=== PATIENT | female | born 1940 | race Caucasian/White ===

== ENCOUNTER 2022-05-20 10:21 | Inpatient (IN) | payer MEDICARE, OTHER, SELFPAY ==
[2022-05-20] VITALS (30 sets, daily range): BP systolic 115–146; BP diastolic 55–84; PULSE 67–92; RESP 15–25; TEMP 36.3–37.2; O2SAT 96–100; BMI 22.5
--- NOTE | ~2022-05-20 | US_ITS ---
EXAMINATION: US thyroid DATE: 05/22/2022 17:14 INDICATION: Hyperthyroidism. TECHNIQUE: Multiple ultrasound images of the thyroid were obtained. COMPARISON: Chest CT 05/20/2022 FINDINGS: The right thyroid lobe measures 1.6 x 0.9 x 0.6 cm. The left thyroid lobe is absent. The thyroid ist hmus measures 3 mm in thickness. There is normal echotexture and echogenicity throughout the thyroid gland. No discrete nodules identified. Normal vascular flow is present. IMPRESSION: 1. Small thyroid. Reviewed, dictated and finalized at location A. ITAL SUPERVISOR IMPRESSION: 1. Small thyroid.
--- NOTE | ~2022-05-20 | XR_ITS ---
EXAMINATION: XR chest 2V DATE: 05/20/2022 11:13 INDICATION: Cough and shortness of breath TECHNIQUE: AP and lateral views of the chest are obtained. COMPARISON: 08/04/2014 FINDINGS: The lungs are free of acute opacities. There is scarring of the lung apices. No pleural eff usion or pneumothorax. The cardiomediastinal silhouette is normal. There is moderate thoracic spondyl osis. IMPRESSION: 1. No acute cardiopulmonary abnormality. Reviewed, dictated and finalized at location B. COVERER HAND
--- NOTE | ~2022-05-20 | CT_ITS ---
EXAMINATION: CTA chest PE protocol DATE: 05/20/2022 13:28 INDICATION: Shortness of breath TECHNIQUE: Computed tomography angiography (CTA) of the chest was performed with 100 mL Omnipaque-350 intravenous contrast timed to evaluate the pulmonary arteries. Coronal maximum intensity projection 3D-reconstructions were created by the technologist. The dose-length product (DLP) was 292.30 mGy-cm. Automated exposure control and iterative reconstruction technique were employed. COMPARISON: 08/04/2014 FINDINGS: The pulmonary arteries are well-opacified. No pulmonary embolism is identified. There is sc arring in the lung apices. There is a 6 mm nodule of the lingula without significant change since the comparison examination. No pleural effusion or pneumothorax. No pathologically enlarged thoracic lym ph nodes are identified. The heart size is normal. There is a stable 3.5 cm hypoattenuating lesion of the right hepatic lobe. There is a 9 mm soft tissue density lesion at the posterior aspect of the le ft kidney. There is moderate thoracic spondylosis. IMPRESSION: 1. No pulmonary embolism or acute cardiopulmonary abnormality. 2. Indeterminate 9 mm left kidney lesion. Follow-up by nonemergent CT or MRI without and with contras t is recommended. Reviewed, dictated and finalized at location B. FOLD BUILDER IMPRESSION: 1. No pulmonary embolism or acute cardiopulmonary abnormality. 2. Indeterminate 9 mm left kidney lesion. Follow-up by nonemergent CT or MRI wi thout and with contrast is recommended.
--- NOTE | 2022-05-20 10:51 | ECG_ITS ---
Measurements Intervals [place] Rate: 74 P: 68 VA: 171 QRS: -11 QRSD: 78 T: 43 QT: 352 QTc: 391 Interpretive Statements SINUS RHYTHM POSSIBLE LEFT ATRIAL ENLARGEMENT RSR' IN V1 OR V2, PROBABLY NORMAL VARIANT DELAYED PRECORDIAL R/S TRANSITION BASELINE ARTIFACT- I, II, III, AVR, AVL, AVF, V2-V5 BORDERLINE ECG NO PREVIOUS ECG AVAILABLE FOR COMPARISON Electronically Signed On 05-20-2022 12:08:02 FORM SETTER HELPER by Uli Mesa D.O.
--- NOTE | 2022-05-20 10:57 | ED.SOB ---
HPI - SOB/Dyspnea General Chief Complaint: Shortness of Breath/Dyspnea Stated Complaint: SOB Time Seen by Provider: 05/20/22 10:36 History of Present Illness HPI Narrative: 82-year-old female with history of CAD here for evaluation of dyspnea over the past day. Patient states that the dyspnea is exertional in nature, relieved when she is at rest. First noted this morning upon waking up. Denies history of previous similar sensation. No chest pain, fevers or chills, cough, leg swelling. No history of blood clots. Her 4 months ago and does note increased stressors at home. States that her shortness of breath has improved without intervention since being in the ED. Related Data Home Medications Medication Instructions Recorded Confirmed aspirin 325 mg tablet 325 mg PO DAILY 12/02/19 12/31/21 cholecalciferol (vitamin D3) 25 25 mcg PO DAILY 12/02/19 12/31/21 mcg (1,000 unit) tablet Allergies Allergy/AdvReac Type Severity Reaction Status Date / Time amoxicillin Allergy Mild RASH Verified 05/20/22 11:26 Penicillins Allergy Mild hives Verified 05/20/22 11:26 Review of Systems Review of Systems: Gen.: Denies fevers or chills Eyes: Denies eye pain or visual change ENT: Denies congestion Respiratory: Reports shortness of breath CV: Denies chest pain or palpitations GI: Denies abdominal pain nausea, emesis or diarrhea denies burning, urgency, frequency or hematuria Musculoskeletal: Denies back pain or muscle pain Neuro: Denies numbness, tingling, weakness or focal weakness Skin: Denies rash Except as documented, all other systems reviewed and negative PMFSH Family History Family History Sibling Patient's sister is in good health Mother Family history of malignant neoplasm of breast in first degree relative Father Family history of coronary artery disease Social History Social History Smoking status: Current every day smoker Alcohol intake: never Exam Narrative: APPEARANCE: Well appearing, no pain in distress, well-nourished. Head: Normocephalic and atraumatic. EYES: PERRLA/EOMI, conjunctivae clear NOSE: No nasal drainage EARS: External ear normal in appearance THROAT: Oropharynx is clear. Mucous membranes are moist. NECK: Supple. No adenopathy, no masses. RESPIRATORY: Airway patent, respirations nonlabored. Clear to auscultation bilaterally, no rales, rhonchi, wheezing. CARDIOVASCULAR: Regular rate and rhythm without murmurs, rubs, or gallops. ABDOMINAL: Normoactive bowel sounds. Soft, nontender, nondistended. No rebound tenderness or guarding. MUSCULOSKELETAL: Extremities are warm and well-perfused. Moves all extremities well. No edema. NEURO: Normal speech. No focal neurologic deficits. SKIN: Skin is warm and dry. No rashes. PSYCHIATRIC: Normal affect/mood. Course Vital Signs Vital signs: Vital Signs Temperature 97.8 F 05/20/22 10:33 Pulse Rate 92 05/20/22 10:33 Respiratory Rate 18 05/20/22 10:33 Blood Pressure 119/55 L 05/20/22 10:33 Pulse Oximetry 98 05/20/22 10:33 Oxygen Delivery Room Air 05/20/22 10:33 Temperature 97.8 F 05/20/22 10:36 Pulse Rate 75 05/20/22 13:16 Respiratory Rate 19 05/20/22 13:16 Blood Pressure 126/55 L 05/20/22 13:16 Pulse Oximetry 99 05/20/22 13:16 Oxygen Delivery Room Air 05/20/22 10:36 MDM - SOB/Dyspnea MDM Narrative Medical decision making narrative: 82-year-old female here for evaluation of shortness of breath over the past several hours on exertion at home. Patient states that her shortness of breath has improved since being in the ED and her vital signs are normal. Heart lungs are clear to auscultation. Patient did have 2 episodes of nonsustained V. tach lasting 5-10 seconds while in the ED; and during these episodes she was quite short of breath. Her chest x-ray is normal, EKG and tr
--- NOTE | 2022-05-20 11:10 | PC.NURSE ---
pt to xray
[2022-05-20 11:41] LABS: Basophils Absolute Auto 0.1 K/mm3 (0.0-0.1); Basophils Percent Auto 0.7 % (0.2-1.2); Eosinophils Absolute Auto 0.2 K/mm3 (0-0.3); Hematocrit 41.4 % (37.0-47.0); Hemoglobin 13.3 g/dL (12.0-15.0); Immature Granulocyte Absolute 0.02 K/mm3 (0.00-0.031); Immature Granulocyte Percent A 0.3 % (0-0.5); Lymphocytes Absolute Auto 1.88 K/mm3 (0.9-3.2); Lymphocytes Percent Auto 25.7 % (18.3-44.2); Mean Corpuscular HGB Conc 32.1 g/dl (32-36); Mean Corpuscular Volume 87.2 fl (80-100); Mean Platelet Volume 11.8 fl (7.4-10.4); Monocytes Absolute Auto 0.7 K/mm3 (0.1-0.6); Monocytes Percent Auto 9.8 % (2.6-8.5); Neutrophils Absolute Auto 4.4 K/mm3 (1.3-6.7); Neutrophils Percent Auto 60.5 % (45.5-73.1); Platelet Count Result 204 k/mm3 (150-375); Red Blood Count 4.75 M/mm3 (4.2-5.4); Red Cell Distribution Width 13.2 % (11.5-14.5); White Blood Count 7.3 K/mm3 (4.5-10.0)
[2022-05-20 11:50] LABS: Alanine Aminotransferase 23 U/L (6-35); Albumin Level 3.7 g/dL (3.5-5.1); Alkaline Phosphatase 106 U/L (38-126); Anion Gap 4 mmol/L (8-16); Aspartate Amino Transferase 25 U/L (14-36); Blood Urea Nitrogen 19 mg/dL (7-17); Calcium 9.1 mg/dL (8.4-10.2); Carbon Dioxide 29 mmol/L (22-30); Chloride 108 mmol/L (98-107); Estimated CRCL calculation 42 ml/min; Estimated Glomerular Filt Rate > 60; Glucose 105 mg/dL (65-110); Potassium 4.1 mmol/L (3.4-5.0); Sodium 141 mmol/L (137-145)
[2022-05-20 12:01] LABS: NT Pro B Type Natriuretic Pept 213 pg/mL (19.9-100)
[2022-05-20 12:02] LABS: Troponin I < 0.012 ng/mL (0.000-0.034)
[2022-05-20 13:04] LABS: Influenza A QL RT-PCR Negative (Negative); Influenza B QL RT-PCR Negative (Negative); SARS-CoV-2 RNA PCR Negative
[2022-05-20 13:10] LABS: D Dimer 0.86 ug/mL (<0.48)
--- NOTE | 2022-05-20 13:51 | PC.NURSE ---
heart health food tray ordered
[2022-05-20] MEDS: IPRATROPIUM BR 0.02% INH SOLN 0.5 MG/2.5 ML VIAL INHALATION (14:21)
--- NOTE | 2022-05-20 15:00 | PM.IMHP ---
H&P: HPI History of Present Illness Date/Time: 05/20/22 15:00 Chief Complaint: Shortness of breath. Narrative: This is a very pleasant 82-year-old female smoker with coronary artery disease and history of stent, hypertension, dyslipidemia, and hypothyroidism who presented to the ED from home for evaluation of shortness of breath. Patient provides the following history; her daughter provides some additional information with the patients consent. Over the past several weeks she has had intermittent and brief episodes of shortness of breath which seem to occur randomly, both while sitting down and when up walking. She cannot pinpoint any specific pattern as to when it occurs. She goes on to say that she has a strange feeling just prior to his shortness of breath though she has difficulties describing that. She had another such episode this morning while walking into the family room and sat down to catch her breath. Her daughter Emilia is in town from [place], helping the patient go through her late 's things since his passing in January 2022. Emilia is an ER physician and she did not notice any significant physical findings (the patient was not pale or diaphoretic) and she reports that her pulse felt regular. Her vital signs were stable on arrival to the ED. She was placed on a monitor and she has had several episodes of nonsustained ventricular tachycardia lasting up to 10 seconds. She reports having the strange feeling and shortness of breath at the same time that this occurs. She has never had similar symptoms prior to the last few weeks. She has no known history of cardiac dysrhythmia. She has not had any recent change in medications and she has been taking her metoprolol as directed. She denies syncope and near-syncope but mentions that she had a fall a couple of weeks ago after losing her balance while bending over to pick something off of the floor. She has not had chest pain or discomfort, pleuritic pain, orthopnea, paroxysmal nocturnal dyspnea, or lower extremity edema. No significant caffeine or alcohol use. Of note she does report an increase in stress over the last several months following the of her . Appetite has not been great and she has lost approximately 30 lb. Review of Systems Review of Systems: Twelve systems were reviewed and are negative except for as per HPI. [facility] Past Medical History Medical History (Updated 05/20/22 @ 21:45 by Annamarie Hugo PA-C) Coronary artery disease Dyslipidemia Hypertension Hypothyroidism Vitamin D deficiency Surgical History Surgical History (Updated 05/20/22 @ 21:34 by Annamarie Hugo PA-C) History of appendectomy History of arthroscopic knee surgery History of heart artery stent Family History Family History Sibling Patient's sister is in good health Mother Family history of malignant neoplasm of breast in first degree relative Father Family history of coronary artery disease Social History Social History (Updated 05/20/22 @ 21:34 by Annamarie Hugo PA-C) Social History: Surrogate medical decision maker: Emilia Pedraza, daughter. Code status: Full code. She would not want to be on life support longer than 2.5 days. Smoking packs per day: 0.5 Smoking cigarettes per day: 10.0 Years smoked: 64 Smoking pack-years: 32.00 Smoking status: Current every day smoker Alcohol intake: never Lack of Transportation: No Lack of Food: Often True Current Housing: I Have Housing Concerned About Future Housing: No Difficulty Paying Gas/Electric Bills: No Difficulty Paying for Meds: No Currently Unemployed: No Education: Associate Degree Difficulty w/ Childcare or Family Care: No Additional living arrangements comments: as of January 2022. Lives alone in [place] with her dog. Spiritual care concerns: No Meds Home Medications and Allergies Home Medication
[2022-05-20 15:23] LABS: Partial Thromboplastin Time 34.9 SECONDS (22.3-36.8); Prothrombin Time 12.3 Seconds (11.1-14.7)
[2022-05-20 15:59] LABS: Magnesium 2.3 mg/dL (1.6-2.3)
[2022-05-20 16:30] LABS: Thyroid Stimulating Hormone < 0.015 uIU/mL (0.465-4.680)
--- NOTE | 2022-05-20 17:35 | ADMGEN ---
This patient, Kandi Lewis, was admitted to IMU Room 207-01 at 1710. Patient/family oriented to hospital policies and general routines including ID bracelet, bed and alarms, visiting hours, pain management, procedures, bathroom and other care routines, personal items, smoking policy, room service/diet, and visiting hours. Information on how to activate the Rapid Response Team has been discussed. Patient/Family are encouraged to report perceived risks to care and to ask questions if they do not understand what they are told or what they should do.
[2022-05-20] MEDS: LACTATED RINGERS 1,000 ML 100 ML IV CONT (22:17)
[2022-05-20] MEDS: hydrALAZINE HCL 50 MG TABLET 100 MG PO (22:17)
[2022-05-20] MEDS: EZETIMIBE 10 MG TABLET PO (22:17)
[2022-05-21] VITALS (17 sets, daily range): BP systolic 107–146; BP diastolic 50–65; PULSE 65–85; RESP 16–20; TEMP 36.3–37.1; O2SAT 94–97; BMI 22.5
[2022-05-21 07:28] LABS: Hemoglobin 11.7 g/dL (12.0-15.0); Mean Corpuscular HGB Conc 32.5 g/dl (32-36); Mean Corpuscular Hemoglobin 28.2 pg (26-34); Mean Corpuscular Volume 86.7 fl (80-100); Mean Platelet Volume 11.4 fl (7.4-10.4); Platelet Count Result 174 k/mm3 (150-375); Red Blood Count 4.15 M/mm3 (4.2-5.4); Red Cell Distribution Width 13.3 % (11.5-14.5); White Blood Count 6.6 K/mm3 (4.5-10.0)
[2022-05-21 07:47] LABS: Anion Gap 2 mmol/L (8-16); Blood Urea Nitrogen 12 mg/dL (7-17); Calcium 8.8 mg/dL (8.4-10.2); Carbon Dioxide 28 mmol/L (22-30); Chloride 107 mmol/L (98-107); Estimated CRCL calculation 46 ml/min; Estimated Glomerular Filt Rate > 60; Glucose 99 mg/dL (65-110); Magnesium 2.1 mg/dL (1.6-2.3); Potassium 3.8 mmol/L (3.4-5.0); Sodium 137 mmol/L (137-145)
[2022-05-21 07:53] LABS: Troponin I < 0.012 ng/mL (0.000-0.034)
[2022-05-21] MEDS: ASPIRIN 325 MG TABLET PO (08:39)
[2022-05-21] MEDS: METOPROLOL SUCCINATE EXT REL 25 MG TABCR BY MOUTH (08:40)
[2022-05-21] MEDS: hydrALAZINE HCL 50 MG TABLET 100 MG PO ×2 (08:40→17:59)
[2022-05-21] MEDS: CHOLECALCIFEROL 1,000 UNITS TABLET 1000 UNITS PO (08:40)
[2022-05-21] MEDS: ATORVASTATIN 40 MG TABLET 80 MG BY MOUTH (08:40)
[2022-05-21] MEDS: lisinopriL 20 MG TABLET 40 MG PO (08:40)
--- NOTE | 2022-05-21 08:45 | PM.IMPN ---
Progress Note: A&P Assessment and Plan (1) Non-sustained ventricular tachycardia: Code(s): I47.29 - Other ventricular tachycardia Status: Acute Assessment and Plan: Monitor telemetry, check electrolytes, appreciate cardiology consultation Etiology could be secondary to hyperthyroidism, possibly iatrogenic TSH undetectable, T4 elevated, T3 pending, hold levothyroxine Due to history of ischemic disease, cardiology is recommending stress testing, ECHO ordered and pending Would likely need ischemic eval versus EPS versus antiarrhythmic medication versus LifeVest prior to discharge? (2) Low serum thyroid stimulating hormone (TSH): Code(s): R79.89 - Other specified abnormal findings of blood chemistry Status: Acute Assessment and Plan: TSH was undetectable, free T3, free T4 2.4, hold levothyroxine (3) Coronary artery disease: Code(s): I25.10 - Atherosclerotic heart disease of nulato coronary artery without angina pectoris Status: Acute Assessment and Plan: Continue home aspirin, statin, quinapril, metoprolol (4) Hypertension: Code(s): I10 - Essential (primary) hypertension Status: Acute Assessment and Plan: Stable, continue home meds (5) Hypothyroidism: Code(s): E03.9 - Hypothyroidism, unspecified Status: Acute Assessment and Plan: Hold levothyroxine, see above (6) Dyslipidemia: Code(s): E78.5 - Hyperlipidemia, unspecified Status: Acute Assessment and Plan: Continue statin (7) Lesion of left nulato kidney: Code(s): N28.9 - Disorder of kidney and ureter, unspecified Status: Acute Assessment and Plan: 9 mm left kidney lesion, follow-up outpatient with further imaging and monitoring Plan DVT prophylaxis with SCDs GI prophylaxis not indicated Code status full code Of note, daughter is a physician and family is requesting transfer for electrophysiology evaluation at [facility]. Transfer can be arranged if stress test and echo are negative and further EP workup necessary. Subjective Date/time seen: 05/21/22 08:45 Interval history: No overnight events noted. No chest pain or shortness of breath. No nausea, vomiting or diarrhea. No fevers or chills. Patient reports intermittent episodes of shortness of breath, palpitations, sense of impending doom and chest pressure. A few of these episodes were captured in the ER with associated ventricular tachycardia noted on telemetry. Since then, patient has remained in sinus rhythm on the telemetry with no further episodes. Review of Systems Review of Systems: 12 point review of systems was assessed and was negative except as noted in the HPI Exam Narrative: General: No acute distress, alert and oriented per baseline HEENT: Atraumatic, normocephalic, mucous membranes moist CV: Regular rate and rhythm, S1, S2 Lungs: Clear to auscultation bilaterally, no rales or crackles noted, no wheezes, good air entry Abdomen: Soft, nontender, nondistended Extremities: Normal to inspection Skin: No rashes noted, no lesions or wounds seen Psych: Euthymic, normal affect Objective Data Vital Signs Vital Signs: Vital Signs - 24 hr 05/20/22 10:33 05/20/22 10:36 05/20/22 11:35 Temperature 97.8 F 97.8 F Pulse Rate 92 92 78 Respiratory Rate 18 16 Blood Pressure 119/55 L 119/55 L Pulse Oximetry 98 98 Oxygen Delivery Room Air Room Air 05/20/22 11:34 05/20/22 12:59 05/20/22 13:00 Temperature Pulse Rate 75 69 68 Respiratory Rate 18 20 17 Blood Pressure 127/60 Pulse Oximetry 98 98 97 Oxygen Delivery 05/20/22 13:01 05/20/22 13:15 05/20/22 13:16 Temperature Pulse Rate 70 73 75 Respiratory Rate 18 18 19 Blood Pressure 126/55 L 126/55 L Pulse Oximetry 99 98 99 Oxygen Delivery 05/20/22 14:22 05/20/22 14:30 05/20/22 13:17 Temperature Pulse Rate 84 77 71 Respirato
[2022-05-21] MEDS: PERFLUTREN LIPID MICROSPHERES 1.5 ML VIAL DILUTED TO 10 ML TOTAL VOLUME IV PUSH (09:53)
--- NOTE | 2022-05-21 09:54 | IVDEFINITY ---
Prior to administration of IV Definity the patient was educated on the risks and benefits of the imaging enhancing agent including potential adverse side effects. The patient verbalized understanding. Allergies were verified. No exclusion criteria were identified and at least one of the following inclusion criteria were met: 1) physician request, 2) patient technically difficult to image (per the [place] [employer]chocardi[employer] guidelines of two or more segments not discernable within the apical view), or 3) questionable left ventricular function. ?
--- NOTE | 2022-05-21 11:03 | PM.CNCAR ---
Assessment and Plan Assessment and plan (1) NSVT (nonsustained ventricular tachycardia): Code(s): I47.29 - Other ventricular tachycardia Status: Acute (2) Low serum thyroid stimulating hormone (TSH): Code(s): R79.89 - Other specified abnormal findings of blood chemistry Status: Acute (3) Hypothyroidism: Code(s): E03.9 - Hypothyroidism, unspecified Status: Acute (4) Dyslipidemia: Code(s): E78.5 - Hyperlipidemia, unspecified Status: Acute (5) Hypertension: Code(s): I10 - Essential (primary) hypertension Status: Acute (6) Coronary artery disease: Code(s): I25.10 - Atherosclerotic heart disease of [place] coronary artery without angina pectoris Status: Acute (7) Coronary artery disease involving [place] coronary artery of [place] heart: Code(s): I25.10 - Atherosclerotic heart disease of [place] coronary artery without angina pectoris Status: Acute (8) History of coronary artery stent placement: Code(s): Z95.5 - Presence of coronary angioplasty implant and graft Status: Acute Plan While in the ER, patient noted to have 2 episodes of NSVT lasting 5-10 seconds, and during these episodes she was noted to be symptomatic with shortness of breath, which is similar to her presenting symptom. Troponins are negative. EKG without ischemic changes. CTA negative for PE. Electrolytes are okay. Her TSH is significantly low. FT4 and FT3 are pending. If patient has hyperthyroidism, this can certainly cause arrhythmias. Management as per Hospitalist. Will obtain an echocardiogram. Further recommendations pending results of echo. If her thyroid is okay and not the culprit, and echo looks okay, we may obtain a stress test tomorrow. Will plan on discharging patient with a 30-day event monitor (already ordered). Continue home ASA, statin, Zetia, Lisinopril, and Metoprolol. Continue to monitor on telemetry. Thus far, no arrhythmias noted on tele while she's been in her room. History of Present Illness History of Present Illness Consult date/time: 05/21/22 11:03 Requesting physician: Leeanne Pineda PA-C Consult reason: Other (NSVT) Reason For Visit: nsvt Narrative: We are consulted for NSVT. This is a patient of Dr. Crawford's. She is an 82-year-old female with a history of CAD s/p PCI to her LAD in the remote past, tobacco dependence, hypertension, hyperlipidemia, hypothyroidism. Last saw Dr. Crawford in 07/2021 and was doing well at that time. Patient presented to the ER for shortness of breath that has been ongoing for a few weeks now. Episodes are brief, can occur randomly. Has felt some palpitations as well. Patient's in January, and things have been stressful for her since then. Patient now lives alone. Her daughter (an ER physician) is in town from [place]. Patient denies any chest pain. In the ER, while on telemetry, it was reported that she had several episodes of NSVT lasting up to 10 seconds. No lower extremity edema, orthopnea. Review of Systems Review of Systems: 12-point ROS obtained. Negative, unless stated in HPI. [facility] Past Medical History Medical History Coronary artery disease Dyslipidemia Hypertension Hypothyroidism Vitamin D deficiency Surgical History Surgical History History of appendectomy History of arthroscopic knee surgery History of heart artery stent Family History Family History Sibling Patient's sister is in good health Mother Family history of malignant neoplasm of breast in first degree relative Father Family history of coronary artery disease Social History Social History Social History: Surrogate medical decision maker: Emilia Pedraza, daughter. Code status:
[2022-05-21 11:25] LABS: Free T4 Free Thyroxine 2.47 ng/mL (0.78-2.19)
--- NOTE | 2022-05-21 15:37 | ECHO_ITS ---
Patient Info Name: Kandi Lewis Age: 82 years : 1940 Gender: Female Ht: 66 in Wt: 127 lbs BSA: 1.63 m2 HR: 81 bpm BP: 146 / 65 mmHg Heart Rhythm: Sinus Rhythm Exam Date: 05/21/2022 9:28 AM Exam Location: [facility] Patient Status: Outpatient Admit Date: 05/20/2022 Staff Ordering Physician: Annamarie Hugo PA-C Feeder Catcher: Amish Quiñonez RDCS, RT Attending Provider: Enrique Fink MD Referring Physician: Oanh ESTEBAN; Exam Type: CA echo dop color flow w con Study Info Indications - NSVT - CAD Complete two-dimensional, color flow and Doppler transthoracic echocardiogram is performed with contrast to opacify the left ventricle and to improve the deliniation of the left ventricle endocardial borders. Summary 1. Left ventricular chamber dimension is normal. 2. Left ventricular systolic function is hyperdynamic, estimated at >70%. 3. The left ventricular diastolic function is grade I diastolic dysfunction. 4. Right ventricular systolic function is normal. 5. There is moderate aortic valve calcification. 6. There is mild to moderate aortic valve stenosis with a peak velocity of 234.41 cm/s, mean gradient of 10 mmHg, and aortic valve area of 1.49 cm2. 7. There is small anterior pericardial effusion. 8. Normal inferior vena cava with >50% collapse upon inspiration consistent with normal right atrial pressure, 3 mmHg. Left Ventricle Left ventricular chamber dimension is normal. Left ventricular systolic function is hyperdynamic, estimated at >70%. There is no increased left ventricular wall thickness. The left ventricular diastolic function is grade I diastolic dysfunction. Right Ventricle Right ventricular chamber dimension is normal. Right ventricular systolic function is normal. Left Atria Left atrial chamber dimension is normal. Right Atria Right atrial chamber dimension is normal. Atrial Septum Intact interatrial septum visualized by color flow imaging. Aortic Valve The aortic valve is not well visualized. There is mild to moderate aortic valve stenosis with a peak velocity of 234.41 cm/s, mean gradient of 10 mmHg, and aortic valve area of 1.49 cm2. There is no aortic valve regurgitation. There is moderate aortic valve calcification. Pulmonic Valve The pulmonic valve is not well visualized. Mitral Valve There is no mitral valve stenosis. There is trace mitral valve regurgitation. Tricuspid Valve There is trace tricuspid valve regurgitation. Pericardium/Pleural There is small anterior pericardial effusion. Inferior Vena Cava Normal inferior vena cava with >50% collapse upon inspiration consistent with normal right atrial pressure, 3 mmHg. Aorta The aortic root size at the sinus of Valsalva is normal. Left Ventricular Outflow Tract Name Value Normal LVOT 2D LVOT Diameter 1.98 cm LVOT Doppler LVOT Peak Gradient 5 mmHg LVOT Mean Gradient 2 mmHg LVOT VTI 23.29 cm LVOT VTI/AV VTI Ratio 0.49 LVOT Stroke Volume 7
[2022-05-21] MEDS: MELATONIN 5 MG TABLET PO (21:13)
[2022-05-21] MEDS: EZETIMIBE 10 MG TABLET PO (21:13)
[2022-05-22] VITALS (13 sets, daily range): BP systolic 106–133; BP diastolic 54–77; PULSE 55–83; RESP 16–20; TEMP 36–37.3; O2SAT 95–99
[2022-05-22 04:25] LABS: Basophils Percent Auto 0.6 % (0.2-1.2); Eosinophils Absolute Auto 0.2 K/mm3 (0-0.3); Eosinophils Percent Auto 3.6 % (0-4.4); Hematocrit 35.6 % (37.0-47.0); Hemoglobin 11.2 g/dL (12.0-15.0); Immature Granulocyte Absolute 0.01 K/mm3 (0.00-0.031); Immature Granulocyte Percent A 0.2 % (0-0.5); Lymphocytes Absolute Auto 2.13 K/mm3 (0.9-3.2); Lymphocytes Percent Auto 33.8 % (18.3-44.2); Mean Corpuscular HGB Conc 31.5 g/dl (32-36); Mean Corpuscular Hemoglobin 28.1 pg (26-34); Mean Corpuscular Volume 89.2 fl (80-100); Mean Platelet Volume 11.4 fl (7.4-10.4); Monocytes Absolute Auto 0.6 K/mm3 (0.1-0.6); Monocytes Percent Auto 9.5 % (2.6-8.5); Neutrophils Absolute Auto 3.3 K/mm3 (1.3-6.7); Neutrophils Percent Auto 52.3 % (45.5-73.1); Platelet Count Result 162 k/mm3 (150-375); Red Blood Count 3.99 M/mm3 (4.2-5.4); Red Cell Distribution Width 13.2 % (11.5-14.5); White Blood Count 6.3 K/mm3 (4.5-10.0)
[2022-05-22 04:36] LABS: Alanine Aminotransferase 19 U/L (6-35); Alkaline Phosphatase 80 U/L (38-126); Anion Gap 1 mmol/L (8-16); Aspartate Amino Transferase 21 U/L (14-36); Bilirubin,Total 0.8 mg/dL (0.2-1.3); Blood Urea Nitrogen 13 mg/dL (7-17); Calcium 8.5 mg/dL (8.4-10.2); Carbon Dioxide 29 mmol/L (22-30); Chloride 106 mmol/L (98-107); Estimated CRCL calculation 41 ml/min; Estimated Glomerular Filt Rate > 60; Glucose 101 mg/dL (65-110); Sodium 136 mmol/L (137-145)
[2022-05-22] MEDS: METOPROLOL SUCCINATE EXT REL 25 MG TABCR BY MOUTH (09:48)
[2022-05-22] MEDS: ATORVASTATIN 40 MG TABLET 80 MG BY MOUTH (09:48)
[2022-05-22] MEDS: hydrALAZINE HCL 50 MG TABLET 100 MG PO ×2 (09:48→17:57)
[2022-05-22] MEDS: ASPIRIN 325 MG TABLET PO (09:48)
[2022-05-22] MEDS: CHOLECALCIFEROL 1,000 UNITS TABLET 1000 UNITS PO (09:48)
[2022-05-22] MEDS: lisinopriL 20 MG TABLET 40 MG PO (09:48)
--- NOTE | 2022-05-22 16:06 | PM.IMPN ---
Progress Note: A&P Assessment and Plan (1) Non-sustained ventricular tachycardia: Code(s): I47.29 - Other ventricular tachycardia Status: Acute Assessment and Plan: Monitor telemetry, check electrolytes, appreciate cardiology consultation Etiology could be secondary to hyperthyroidism, possibly iatrogenic TSH undetectable, T4 elevated, T3 pending, hold levothyroxine Due to history of ischemic disease, cardiology is recommending stress testing, ECHO ordered and pending Would likely need ischemic eval versus EPS versus antiarrhythmic medication versus LifeVest prior to discharge? (2) Low serum thyroid stimulating hormone (TSH): Code(s): R79.89 - Other specified abnormal findings of blood chemistry Status: Acute Assessment and Plan: TSH was undetectable, free T3, free T4 2.4, hold levothyroxine (3) Coronary artery disease: Code(s): I25.10 - Atherosclerotic heart disease of [place] coronary artery without angina pectoris Status: Acute Assessment and Plan: Continue home aspirin, statin, quinapril, metoprolol (4) Hypertension: Code(s): I10 - Essential (primary) hypertension Status: Acute Assessment and Plan: Stable, continue home meds (5) Hypothyroidism: Code(s): E03.9 - Hypothyroidism, unspecified Status: Acute Assessment and Plan: Hold levothyroxine, see above (6) Dyslipidemia: Code(s): E78.5 - Hyperlipidemia, unspecified Status: Acute Assessment and Plan: Continue statin (7) Lesion of left [place] kidney: Code(s): N28.9 - Disorder of kidney and ureter, unspecified Status: Acute Assessment and Plan: 9 mm left kidney lesion, follow-up outpatient with further imaging and monitoring Plan Patient to be transferred to [facility] for EP evaluation. She was accepted by Dr Donovan with EP and Dr Villa with cardiology. They will let us know when a bed is available. Addendum Documented By: ?Madie Echols DO 05/21/22 154 Addendum Signed By: <Electronically signed by? Madie Echols, > 05/21/221546 Progress Note: A&P Assessment and Plan (1) Non-sustained ventricular tachycardia: ?Code(s): I47.29 - Other ventricular tachycardia ?Status:?Acute ?Assessment and Plan: Monitor telemetry, check electrolytes, appreciate cardiology consultation Etiology could be secondary to hyperthyroidism, possibly iatrogenic TSH undetectable, T4 elevated, T3 pending, hold levothyroxine Due to history of ischemic disease, cardiology is recommending stress testing, ECHO EF >70% Would likely need ischemic eval versus EPS versus antiarrhythmic medication versus LifeVest prior to discharge? (2) Hyperthyroidism likely from medication from Levothyroxine TSH was undetectable, free T3, free T4 2.4, hold levothyroxine US thyroid (3) Coronary artery disease: ?Code(s): I25.10 - Atherosclerotic heart disease of [place] coronary artery without angina pectoris ?Status:?Acute ?Assessment and Plan: Continue home aspirin, statin, quinapril, metoprolol (4) Hypertension: ?Code(s): I10 - Essential (primary) hypertension ?Status:?Acute ?Assessment and Plan: Stable, continue home meds (5) Hypothyroidism: ?Code(s): E03.9 - Hypothyroidism, unspecified ?Status:?Acute ?Assessment and Plan: Hold levothyroxine, see above (6) Dyslipidemia: ?Code(s): E78.5 - Hyperlipidemia, unspecified ?Status:?Acute ?Assessment and Plan: Continue statin (7) Lesion of left [place] kidney: ?Code(s): N28.9 - Disorder of kidney and ureter, unspecified ?Status:?Acute ?Assessment and Plan: 9 mm left kidney lesion, follow-up outpatient with further imaging and monitoring DVT prophylaxis with SCDs GI prophylaxis not indicated Code status full code Of note, daughter is a physician and family is reque
[2022-05-22] MEDS: EZETIMIBE 10 MG TABLET PO (20:06)
[2022-05-22] MEDS: MELATONIN 5 MG TABLET PO (20:06)
[2022-05-23] VITALS (16 sets, daily range): BP systolic 106–141; BP diastolic 49–80; PULSE 66–90; RESP 16–20; TEMP 36.3–36.8; O2SAT 95–100
[2022-05-23 04:47] LABS: Basophils Percent Auto 0.5 % (0.2-1.2); Eosinophils Absolute Auto 0.2 K/mm3 (0-0.3); Eosinophils Percent Auto 3.1 % (0-4.4); Hematocrit 36.1 % (37.0-47.0); Hemoglobin 11.4 g/dL (12.0-15.0); Immature Granulocyte Absolute 0.02 K/mm3 (0.00-0.031); Immature Granulocyte Percent A 0.3 % (0-0.5); Lymphocytes Percent Auto 21.8 % (18.3-44.2); Mean Corpuscular HGB Conc 31.6 g/dl (32-36); Mean Corpuscular Hemoglobin 27.9 pg (26-34); Mean Corpuscular Volume 88.5 fl (80-100); Mean Platelet Volume 12.2 fl (7.4-10.4); Monocytes Absolute Auto 0.6 K/mm3 (0.1-0.6); Monocytes Percent Auto 8.6 % (2.6-8.5); Neutrophils Absolute Auto 4.2 K/mm3 (1.3-6.7); Neutrophils Percent Auto 65.7 % (45.5-73.1); Platelet Count Result 167 k/mm3 (150-375); Red Blood Count 4.08 M/mm3 (4.2-5.4); Red Cell Distribution Width 13.2 % (11.5-14.5); White Blood Count 6.4 K/mm3 (4.5-10.0)
[2022-05-23 04:58] LABS: Alanine Aminotransferase 19 U/L (6-35); Albumin Level 2.9 g/dL (3.5-5.1); Alkaline Phosphatase 87 U/L (38-126); Anion Gap 3 mmol/L (8-16); Aspartate Amino Transferase 20 U/L (14-36); Bilirubin,Total 1.2 mg/dL (0.2-1.3); Blood Urea Nitrogen 16 mg/dL (7-17); Calcium 8.5 mg/dL (8.4-10.2); Carbon Dioxide 27 mmol/L (22-30); Chloride 109 mmol/L (98-107); Estimated CRCL calculation 41 ml/min; Estimated Glomerular Filt Rate > 60; Glucose 97 mg/dL (65-110); Potassium 3.9 mmol/L (3.4-5.0); Sodium 139 mmol/L (137-145)
[2022-05-23] MEDS: CHOLECALCIFEROL 1,000 UNITS TABLET 1000 UNITS PO (08:50)
[2022-05-23] MEDS: ATORVASTATIN 40 MG TABLET 80 MG BY MOUTH (08:50)
[2022-05-23] MEDS: ASPIRIN 325 MG TABLET PO (08:50)
[2022-05-23] MEDS: SODIUM CHLORIDE 0.9% IV 1,000 ML 75 ML IV CONT ×2 (09:57→20:59)
[2022-05-23] MEDS: hydrALAZINE HCL 50 MG TABLET 100 MG PO (17:09)
--- NOTE | 2022-05-23 17:42 | PM.IMPN ---
Progress Note: A&P Assessment and Plan (1) Non-sustained ventricular tachycardia: Code(s): I47.29 - Other ventricular tachycardia Status: Acute Assessment and Plan: Monitor telemetry, check electrolytes, appreciate cardiology consultation Etiology could be secondary to hyperthyroidism, possibly iatrogenic TSH undetectable, T4 elevated, T3 pending, hold levothyroxine Due to history of ischemic disease, cardiology is recommending stress testing, ECHO ordered and pending Would likely need ischemic eval versus EPS versus antiarrhythmic medication versus LifeVest prior to discharge? (2) Low serum thyroid stimulating hormone (TSH): Code(s): R79.89 - Other specified abnormal findings of blood chemistry Status: Acute Assessment and Plan: TSH was undetectable, free T3, free T4 2.4, hold levothyroxine (3) Coronary artery disease: Code(s): I25.10 - Atherosclerotic heart disease of [place] coronary artery without angina pectoris Status: Acute Assessment and Plan: Continue home aspirin, statin, quinapril, metoprolol (4) Hypertension: Code(s): I10 - Essential (primary) hypertension Status: Acute Assessment and Plan: Stable, continue home meds (5) Hypothyroidism: Code(s): E03.9 - Hypothyroidism, unspecified Status: Acute Assessment and Plan: Hold levothyroxine, see above (6) Dyslipidemia: Code(s): E78.5 - Hyperlipidemia, unspecified Status: Acute Assessment and Plan: Continue statin (7) Lesion of left [place] kidney: Code(s): N28.9 - Disorder of kidney and ureter, unspecified Status: Acute Assessment and Plan: 9 mm left kidney lesion, follow-up outpatient with further imaging and monitoring Plan Patient to be transferred to [facility] for EP evaluation. She was accepted by Dr Donovan with EP and Dr Villa with cardiology. They will let us know when a bed is available. Progress Note: A&P Assessment and Plan (1) Non-sustained ventricular tachycardia: ?Code(s): I47.29 - Other ventricular tachycardia ?Status:?Acute ?Assessment and Plan: Monitor telemetry, check electrolytes, appreciate cardiology consultation Etiology could be secondary to hyperthyroidism, possibly iatrogenic TSH undetectable, T4 elevated, T3 pending, hold levothyroxine Due to history of ischemic disease, cardiology is recommending stress testing, ECHO EF >70% Would likely need ischemic eval versus EPS versus antiarrhythmic medication versus LifeVest prior to discharge? (2) Hyperthyroidism likely from medication from Levothyroxine TSH was undetectable, free T3, free T4 2.4, hold levothyroxine US thyroid showed absent left thyroid no nodules repeat thyroid studies tomorrow Diarrhea r/o C diff gentle rehydration monitor (3) Coronary artery disease: ?Code(s): I25.10 - Atherosclerotic heart disease of [place] coronary artery without angina pectoris ?Status:?Acute ?Assessment and Plan: Continue home aspirin, statin, quinapril, metoprolol (4) Hypertension: ?Code(s): I10 - Essential (primary) hypertension ?Status:?Acute ?Assessment and Plan: Stable, continue home meds (5) Hypothyroidism: ?Code(s): E03.9 - Hypothyroidism, unspecified ?Status:?Acute ?Assessment and Plan: Hold levothyroxine, see above (6) Dyslipidemia: ?Code(s): E78.5 - Hyperlipidemia, unspecified ?Status:?Acute ?Assessment and Plan: Continue statin (7) Lesion of left [place] kidney: ?Code(s): N28.9 - Disorder of kidney and ureter, unspecified ?Status:?Acute ?Assessment and Plan: 9 mm left kidney lesion, follow-up outpatient with further imaging and monitoring DVT prophylaxis with Sq Lovenox PT/OT conuslted Code status full code Patient awaiting transfer to [place] for EP eval Subjective Date/t
[2022-05-23] MEDS: EZETIMIBE 10 MG TABLET PO (20:57)
[2022-05-23 20:58] LABS: Triiodothyronine T3 Free 4.6 pg/mL (2.3-4.2)
[2022-05-24] VITALS (18 sets, daily range): BP systolic 107–153; BP diastolic 51–81; PULSE 59–87; RESP 16–20; TEMP 36.1–36.6; O2SAT 95–100
[2022-05-24 04:38] LABS: Basophils Absolute Auto 0.1 K/mm3 (0.0-0.1); Basophils Percent Auto 0.9 % (0.2-1.2); Eosinophils Absolute Auto 0.3 K/mm3 (0-0.3); Hematocrit 34.2 % (37.0-47.0); Hemoglobin 10.7 g/dL (12.0-15.0); Immature Granulocyte Absolute 0.01 K/mm3 (0.00-0.031); Immature Granulocyte Percent A 0.2 % (0-0.5); Lymphocytes Absolute Auto 2.13 K/mm3 (0.9-3.2); Lymphocytes Percent Auto 39.7 % (18.3-44.2); Mean Corpuscular HGB Conc 31.3 g/dl (32-36); Mean Corpuscular Hemoglobin 27.8 pg (26-34); Mean Corpuscular Volume 88.8 fl (80-100); Mean Platelet Volume 11.8 fl (7.4-10.4); Monocytes Absolute Auto 0.7 K/mm3 (0.1-0.6); Monocytes Percent Auto 12.5 % (2.6-8.5); Neutrophils Absolute Auto 2.2 K/mm3 (1.3-6.7); Neutrophils Percent Auto 41.7 % (45.5-73.1); Platelet Count Result 157 k/mm3 (150-375); Red Blood Count 3.85 M/mm3 (4.2-5.4); Red Cell Distribution Width 13.2 % (11.5-14.5); White Blood Count 5.4 K/mm3 (4.5-10.0)
[2022-05-24 04:52] LABS: Alanine Aminotransferase 18 U/L (6-35); Albumin Level 2.7 g/dL (3.5-5.1); Alkaline Phosphatase 75 U/L (38-126); Anion Gap 2 mmol/L (8-16); Aspartate Amino Transferase 20 U/L (14-36); Bilirubin,Total 0.7 mg/dL (0.2-1.3); Blood Urea Nitrogen 16 mg/dL (7-17); Calcium 8.2 mg/dL (8.4-10.2); Carbon Dioxide 25 mmol/L (22-30); Chloride 113 mmol/L (98-107); Estimated CRCL calculation 46 ml/min; Estimated Glomerular Filt Rate > 60; Glucose 90 mg/dL (65-110); Potassium 3.9 mmol/L (3.4-5.0); Sodium 140 mmol/L (137-145)
[2022-05-24] MEDS: lisinopriL 20 MG TABLET 40 MG PO (10:41)
[2022-05-24] MEDS: hydrALAZINE HCL 50 MG TABLET 100 MG PO ×2 (10:42→16:57)
[2022-05-24] MEDS: METOPROLOL SUCCINATE EXT REL 25 MG TABCR BY MOUTH (10:42)
[2022-05-24] MEDS: CHOLECALCIFEROL 1,000 UNITS TABLET 1000 UNITS PO (10:43)
[2022-05-24] MEDS: ASPIRIN 325 MG TABLET PO (10:43)
[2022-05-24] MEDS: ATORVASTATIN 40 MG TABLET 80 MG BY MOUTH (10:43)
[2022-05-24] MEDS: ENOXAPARIN 40 MG/0.4 ML SYRINGE SUB-Q (10:44)
[2022-05-24 11:25] LABS: Thyroid Stimulating Hormone < 0.015 uIU/mL (0.465-4.680)
[2022-05-24] MEDS: SODIUM CHLORIDE 0.9% IV 1,000 ML 75 ML IV CONT (13:01)
--- NOTE | 2022-05-24 13:44 | PM.IMPN ---
Progress Note: A&P Assessment and Plan (1) Non-sustained ventricular tachycardia: Code(s): I47.29 - Other ventricular tachycardia Status: Acute Assessment and Plan: Monitor telemetry, check electrolytes, appreciate cardiology consultation Etiology could be secondary to hyperthyroidism, possibly iatrogenic TSH undetectable, T4 elevated, T3 pending, hold levothyroxine Due to history of ischemic disease, cardiology is recommending stress testing, ECHO ordered and pending Would likely need ischemic eval versus EPS versus antiarrhythmic medication versus LifeVest prior to discharge? (2) Low serum thyroid stimulating hormone (TSH): Code(s): R79.89 - Other specified abnormal findings of blood chemistry Status: Acute Assessment and Plan: TSH was undetectable, free T3, free T4 2.4, hold levothyroxine (3) Coronary artery disease: Code(s): I25.10 - Atherosclerotic heart disease of [place] coronary artery without angina pectoris Status: Acute Assessment and Plan: Continue home aspirin, statin, quinapril, metoprolol (4) Hypertension: Code(s): I10 - Essential (primary) hypertension Status: Acute Assessment and Plan: Stable, continue home meds (5) Hypothyroidism: Code(s): E03.9 - Hypothyroidism, unspecified Status: Acute Assessment and Plan: Hold levothyroxine, see above (6) Dyslipidemia: Code(s): E78.5 - Hyperlipidemia, unspecified Status: Acute Assessment and Plan: Continue statin (7) Lesion of left [place] kidney: Code(s): N28.9 - Disorder of kidney and ureter, unspecified Status: Acute Assessment and Plan: 9 mm left kidney lesion, follow-up outpatient with further imaging and monitoring Plan Patient to be transferred to [facility] for EP evaluation. She was accepted by Dr Donovan with EP and Dr Villa with cardiology. They will let us know when a bed is available. Progress Note: A&P Assessment and Plan (1) Non-sustained ventricular tachycardia Monitor telemetry, check electrolytes, appreciate cardiology consultation Etiology could be secondary to hyperthyroidism, possibly iatrogenic TSH undetectable, T4 elevated, T3 elevated, hold levothyroxine Due to history of ischemic disease, cardiology is recommending stress testing, ECHO EF >70% Awaiting transfer to [place] for EP study (2) Hyperthyroidism likely from medication from Levothyroxine TSH was undetectable, free T3, free T4 2.4, hold levothyroxine US thyroid showed absent left thyroid no nodules repeat TSH still <0.015 Diarrhea resolved monitor (3) Coronary artery disease: Continue home aspirin, statin, quinapril, metoprolol (4) Hypertension: Stable, continue home meds (5) Hypothyroidism: Hold levothyroxine, see above (6) Dyslipidemia: Continue statin (7) Lesion of left [place] kidney: 9 mm left kidney lesion, follow-up outpatient with further imaging and monitoring DVT prophylaxis with Sq Lovenox PT/OT consulted Code status full code Patient awaiting transfer to [place] for EP eval Subjective Date/time seen: 05/24/22 13:44 Interval history: Seen at bedside this morning, remains her cheerful self, noted diarrhea resolved yesterday afternoon, no other symptoms. Review of Systems Review of Systems: All systems reviewed & are unremarkable except as noted in HPI and below Exam Narrative: General:? No acute distress, alert and oriented per baseline HEENT:? Atraumatic, normocephalic, mucous membranes moist CV:? Regular rate and rhythm, S1, S2 Lungs:? Clear to auscultation bilaterally, no rales or crackles noted, no wheezes, good air entry Abdomen:? Soft, nontender, nondistended Extremities:? Normal to inspection Skin:? No rashes noted, no lesions or wounds seen Psych:? Euthymic, normal affect Objective Data Vital Signs Vital Signs: Vital Sign
[2022-05-24] MEDS: EZETIMIBE 10 MG TABLET PO (20:15)
[2022-05-24] MEDS: MELATONIN 5 MG TABLET PO (20:22)
[2022-05-25] VITALS (13 sets, daily range): BP systolic 110–161; BP diastolic 53–71; PULSE 63–88; RESP 16–19; TEMP 36.1–36.6; O2SAT 94–99
[2022-05-25 04:31] LABS: Basophils Percent Auto 0.7 % (0.2-1.2); Eosinophils Absolute Auto 0.3 K/mm3 (0-0.3); Eosinophils Percent Auto 4.8 % (0-4.4); Hematocrit 34.2 % (37.0-47.0); Hemoglobin 10.9 g/dL (12.0-15.0); Immature Granulocyte Absolute 0.02 K/mm3 (0.00-0.031); Immature Granulocyte Percent A 0.3 % (0-0.5); Lymphocytes Absolute Auto 1.92 K/mm3 (0.9-3.2); Lymphocytes Percent Auto 31.8 % (18.3-44.2); Mean Corpuscular HGB Conc 31.9 g/dl (32-36); Mean Corpuscular Hemoglobin 28.5 pg (26-34); Mean Corpuscular Volume 89.3 fl (80-100); Mean Platelet Volume 11.8 fl (7.4-10.4); Monocytes Absolute Auto 0.6 K/mm3 (0.1-0.6); Monocytes Percent Auto 10.6 % (2.6-8.5); Neutrophils Absolute Auto 3.1 K/mm3 (1.3-6.7); Neutrophils Percent Auto 51.8 % (45.5-73.1); Platelet Count Result 163 k/mm3 (150-375); Red Blood Count 3.83 M/mm3 (4.2-5.4); Red Cell Distribution Width 13.2 % (11.5-14.5)
[2022-05-25 04:54] LABS: Alanine Aminotransferase 18 U/L (6-35); Albumin Level 2.8 g/dL (3.5-5.1); Alkaline Phosphatase 77 U/L (38-126); Anion Gap 3 mmol/L (8-16); Aspartate Amino Transferase 21 U/L (14-36); Bilirubin,Total 0.7 mg/dL (0.2-1.3); Blood Urea Nitrogen 15 mg/dL (7-17); Calcium 8.2 mg/dL (8.4-10.2); Carbon Dioxide 25 mmol/L (22-30); Chloride 111 mmol/L (98-107); Estimated CRCL calculation 41 ml/min; Estimated Glomerular Filt Rate > 60; Glucose 93 mg/dL (65-110); Potassium 4.1 mmol/L (3.4-5.0); Sodium 139 mmol/L (137-145)
[2022-05-25] MEDS: ENOXAPARIN 40 MG/0.4 ML SYRINGE SUB-Q (09:50)
[2022-05-25] MEDS: lisinopriL 20 MG TABLET 40 MG PO (09:51)
[2022-05-25] MEDS: ATORVASTATIN 40 MG TABLET 80 MG BY MOUTH (09:51)
[2022-05-25] MEDS: hydrALAZINE HCL 50 MG TABLET 100 MG PO ×2 (09:51→17:27)
[2022-05-25] MEDS: METOPROLOL SUCCINATE EXT REL 25 MG TABCR BY MOUTH (09:52)
[2022-05-25] MEDS: ASPIRIN 325 MG TABLET PO (09:52)
[2022-05-25] MEDS: CHOLECALCIFEROL 1,000 UNITS TABLET 1000 UNITS PO (09:52)
--- NOTE | 2022-05-25 14:41 | PM.IMPN ---
Progress Note: A&P Assessment and Plan (1) Non-sustained ventricular tachycardia: Code(s): I47.29 - Other ventricular tachycardia Status: Acute Assessment and Plan: Monitor telemetry, check electrolytes, appreciate cardiology consultation Etiology could be secondary to hyperthyroidism, possibly iatrogenic TSH undetectable, T4 elevated, T3 pending, hold levothyroxine Due to history of ischemic disease, cardiology is recommending stress testing, ECHO ordered and pending Would likely need ischemic eval versus EPS versus antiarrhythmic medication versus LifeVest prior to discharge? (2) Low serum thyroid stimulating hormone (TSH): Code(s): R79.89 - Other specified abnormal findings of blood chemistry Status: Acute Assessment and Plan: TSH was undetectable, free T3, free T4 2.4, hold levothyroxine (3) Coronary artery disease: Code(s): I25.10 - Atherosclerotic heart disease of [place] coronary artery without angina pectoris Status: Acute Assessment and Plan: Continue home aspirin, statin, quinapril, metoprolol (4) Hypertension: Code(s): I10 - Essential (primary) hypertension Status: Acute Assessment and Plan: Stable, continue home meds (5) Hypothyroidism: Code(s): E03.9 - Hypothyroidism, unspecified Status: Acute Assessment and Plan: Hold levothyroxine, see above (6) Dyslipidemia: Code(s): E78.5 - Hyperlipidemia, unspecified Status: Acute Assessment and Plan: Continue statin (7) Lesion of left [place] kidney: Code(s): N28.9 - Disorder of kidney and ureter, unspecified Status: Acute Assessment and Plan: 9 mm left kidney lesion, follow-up outpatient with further imaging and monitoring Plan Patient to be transferred to [facility] for EP evaluation. She was accepted by Dr Donovan with EP and Dr Villa with cardiology. They will let us know when a bed is available. Progress Note: A&P Assessment and Plan (1) Non-sustained ventricular tachycardia Monitor telemetry, check electrolytes, appreciate cardiology consultation Etiology could be secondary to hyperthyroidism, possibly iatrogenic TSH undetectable, T4 elevated, T3 elevated, hold levothyroxine Due to history of ischemic disease, cardiology is recommending stress testing, ECHO EF >70% Awaiting transfer to [place] for EP study (2) Hyperthyroidism likely from medication from Levothyroxine TSH was undetectable, free T3, free T4 2.4, hold levothyroxine US thyroid showed absent left thyroid no nodules repeat TSH still <0.015 Diarrhea resolved monitor (3) Coronary artery disease: Continue home aspirin, statin, quinapril, metoprolol (4) Hypertension: Stable, continue home meds (5) Hypothyroidism: Hold levothyroxine, see above (6) Dyslipidemia: Continue statin (7) Lesion of left [place] kidney: 9 mm left kidney lesion, follow-up outpatient with further imaging and monitoring DVT prophylaxis with Sq Lovenox PT/OT consulted Code status full code Patient awaiting transfer to [place] for EP eval Subjective Date/time seen: 05/25/22 14:41 Interval history: remains cheerful but antsy that the transfer is taking too long Review of Systems Review of Systems: All systems reviewed & are unremarkable except as noted in HPI and below Exam Narrative: General:? No acute distress, alert and oriented per baseline HEENT:? Atraumatic, normocephalic, mucous membranes moist CV:? Regular rate and rhythm, S1, S2 Lungs:? Clear to auscultation bilaterally, no rales or crackles noted, no wheezes, good air entry Abdomen:? Soft, nontender, nondistended Extremities:? Normal to inspection Skin:? No rashes noted, no lesions or wounds seen Psych:? Euthymic, normal affect Objective Data Vital Signs Vital Signs: Vital Signs - 24 hr 05/24/22 15:19 05/24/22 16:00 05/24/22
[2022-05-25] MEDS: EZETIMIBE 10 MG TABLET PO (20:18)
[2022-05-26] VITALS (17 sets, daily range): BP systolic 92–139; BP diastolic 50–83; PULSE 51–86; RESP 14–20; TEMP 36.2–36.9; O2SAT 95–99
[2022-05-26 04:14] LABS: Thyroid Peroxidase Antibodies 74 IU/mL (<9)
[2022-05-26 05:25] LABS: Basophils Percent Auto 0.7 % (0.2-1.2); Eosinophils Absolute Auto 0.2 K/mm3 (0-0.3); Eosinophils Percent Auto 3.5 % (0-4.4); Hematocrit 33.9 % (37.0-47.0); Hemoglobin 10.7 g/dL (12.0-15.0); Immature Granulocyte Absolute 0.02 K/mm3 (0.00-0.031); Immature Granulocyte Percent A 0.3 % (0-0.5); Lymphocytes Absolute Auto 1.82 K/mm3 (0.9-3.2); Lymphocytes Percent Auto 30.4 % (18.3-44.2); Mean Corpuscular HGB Conc 31.6 g/dl (32-36); Mean Corpuscular Hemoglobin 27.9 pg (26-34); Mean Corpuscular Volume 88.5 fl (80-100); Mean Platelet Volume 11.5 fl (7.4-10.4); Monocytes Absolute Auto 0.7 K/mm3 (0.1-0.6); Monocytes Percent Auto 11.2 % (2.6-8.5); Neutrophils Absolute Auto 3.2 K/mm3 (1.3-6.7); Neutrophils Percent Auto 53.9 % (45.5-73.1); Platelet Count Result 165 k/mm3 (150-375); Red Blood Count 3.83 M/mm3 (4.2-5.4); Red Cell Distribution Width 13.2 % (11.5-14.5)
[2022-05-26 05:36] LABS: Alanine Aminotransferase 19 U/L (6-35); Albumin Level 2.9 g/dL (3.5-5.1); Alkaline Phosphatase 75 U/L (38-126); Anion Gap 2 mmol/L (8-16); Aspartate Amino Transferase 19 U/L (14-36); Bilirubin,Total 0.7 mg/dL (0.2-1.3); Blood Urea Nitrogen 17 mg/dL (7-17); Calcium 8.4 mg/dL (8.4-10.2); Carbon Dioxide 27 mmol/L (22-30); Chloride 109 mmol/L (98-107); Estimated CRCL calculation 37 ml/min; Estimated Glomerular Filt Rate 60; Glucose 92 mg/dL (65-110); Potassium 3.7 mmol/L (3.4-5.0); Sodium 138 mmol/L (137-145)
[2022-05-26 08:56] LABS: CRP 0.5 mg/dL (<1.0)
[2022-05-26] MEDS: METOPROLOL SUCCINATE EXT REL 25 MG TABCR BY MOUTH (09:13)
[2022-05-26] MEDS: ENOXAPARIN 40 MG/0.4 ML SYRINGE SUB-Q (09:14)
[2022-05-26] MEDS: lisinopriL 20 MG TABLET 40 MG PO (09:14)
[2022-05-26] MEDS: hydrALAZINE HCL 50 MG TABLET 100 MG PO (09:14)
[2022-05-26] MEDS: ATORVASTATIN 40 MG TABLET 80 MG BY MOUTH (09:14)
[2022-05-26] MEDS: CHOLECALCIFEROL 1,000 UNITS TABLET 1000 UNITS PO (09:14)
[2022-05-26] MEDS: ASPIRIN 325 MG TABLET PO (09:14)
[2022-05-26 10:10] LABS: Erythrocyte Sedimentation Rate 17 mm/hr (0-20)
--- NOTE | 2022-05-26 17:16 | PM.IMPN ---
Progress Note: A&P Assessment and Plan (1) Non-sustained ventricular tachycardia: Code(s): I47.29 - Other ventricular tachycardia Status: Acute Assessment and Plan: Monitor telemetry, check electrolytes, appreciate cardiology consultation Etiology could be secondary to hyperthyroidism, possibly iatrogenic TSH undetectable, T4 elevated, T3 pending, hold levothyroxine Due to history of ischemic disease, cardiology is recommending stress testing, ECHO ordered and pending Would likely need ischemic eval versus EPS versus antiarrhythmic medication versus LifeVest prior to discharge? (2) Low serum thyroid stimulating hormone (TSH): Code(s): R79.89 - Other specified abnormal findings of blood chemistry Status: Acute Assessment and Plan: TSH was undetectable, free T3, free T4 2.4, hold levothyroxine (3) Coronary artery disease: Code(s): I25.10 - Atherosclerotic heart disease of [place] coronary artery without angina pectoris Status: Acute Assessment and Plan: Continue home aspirin, statin, quinapril, metoprolol (4) Hypertension: Code(s): I10 - Essential (primary) hypertension Status: Acute Assessment and Plan: Stable, continue home meds (5) Hypothyroidism: Code(s): E03.9 - Hypothyroidism, unspecified Status: Acute Assessment and Plan: Hold levothyroxine, see above (6) Dyslipidemia: Code(s): E78.5 - Hyperlipidemia, unspecified Status: Acute Assessment and Plan: Continue statin (7) Lesion of left [place] kidney: Code(s): N28.9 - Disorder of kidney and ureter, unspecified Status: Acute Assessment and Plan: 9 mm left kidney lesion, follow-up outpatient with further imaging and monitoring Plan Patient to be transferred to [facility] for EP evaluation. She was accepted by Dr Donovan with EP and Dr Villa with cardiology. They will let us know when a bed is available. THyroid peroxidase elevated, CRP/ESR and thyroid scan ordered. Progress Note: A&P Assessment and Plan (1) Non-sustained ventricular tachycardia Monitor telemetry, check electrolytes, appreciate cardiology consultation Etiology could be secondary to hyperthyroidism, possibly iatrogenic TSH undetectable, T4 elevated, T3 elevated, hold levothyroxine Due to history of ischemic disease, cardiology is recommending stress testing, ECHO EF >70% Awaiting transfer to [place] for EP study (2) Hyperthyroidism likely from medication from Levothyroxine TSH was undetectable, free T3, free T4 2.4, hold levothyroxine US thyroid showed absent left thyroid no nodules repeat TSH still <0.015 Thyroid peroxidase elevated at 74, Thyroid stimulating Ab pending Thyoid scan started Diarrhea resolved monitor (3) Coronary artery disease: Continue home aspirin, statin, quinapril, metoprolol (4) Hypertension: Stable, continue home meds (5) Hypothyroidism: Hold levothyroxine, see above (6) Dyslipidemia: Continue statin (7) Lesion of left [place] kidney: 9 mm left kidney lesion, follow-up outpatient with further imaging and monitoring DVT prophylaxis with Sq Lovenox PT/OT consulted Code status full code Patient awaiting transfer to [place] for EP eval Subjective Date/time seen: 05/26/22 17:16 Interval history: No overnight events and no chest pain, SOB and vomiting or diarrhea Review of Systems Review of Systems: All systems reviewed & are unremarkable except as noted in HPI and below Exam Narrative: General:? No acute distress, alert and oriented per baseline HEENT:? Atraumatic, normocephalic, mucous membranes moist CV:? Regular rate and rhythm, S1, S2 Lungs:? Clear to auscultation bilaterally, no rales or crackles noted, no wheezes, good air entry Abdomen:? Soft, nontender, nondistended Extremities:? Normal to inspection Skin:? No rashes noted, no lesions or w
[2022-05-26] MEDS: EZETIMIBE 10 MG TABLET PO (20:51)
[2022-05-26] MEDS: MELATONIN 5 MG TABLET PO (20:51)
[2022-05-27] VITALS (18 sets, daily range): BP systolic 105–133; BP diastolic 55–70; PULSE 47–68; RESP 16–20; TEMP 36.3–36.6; O2SAT 96–100
[2022-05-27 04:58] LABS: Basophils Percent Auto 0.6 % (0.2-1.2); Eosinophils Absolute Auto 0.2 K/mm3 (0-0.3); Eosinophils Percent Auto 2.9 % (0-4.4); Hematocrit 35.9 % (37.0-47.0); Hemoglobin 11.3 g/dL (12.0-15.0); Immature Granulocyte Absolute 0.02 K/mm3 (0.00-0.031); Immature Granulocyte Percent A 0.3 % (0-0.5); Lymphocytes Absolute Auto 1.71 K/mm3 (0.9-3.2); Lymphocytes Percent Auto 27.4 % (18.3-44.2); Mean Corpuscular HGB Conc 31.5 g/dl (32-36); Mean Corpuscular Hemoglobin 28.1 pg (26-34); Mean Corpuscular Volume 89.3 fl (80-100); Mean Platelet Volume 11.7 fl (7.4-10.4); Monocytes Absolute Auto 0.7 K/mm3 (0.1-0.6); Monocytes Percent Auto 10.4 % (2.6-8.5); Neutrophils Absolute Auto 3.6 K/mm3 (1.3-6.7); Neutrophils Percent Auto 58.4 % (45.5-73.1); Platelet Count Result 165 k/mm3 (150-375); Red Blood Count 4.02 M/mm3 (4.2-5.4); Red Cell Distribution Width 13.2 % (11.5-14.5); White Blood Count 6.2 K/mm3 (4.5-10.0)
[2022-05-27 05:14] LABS: Alanine Aminotransferase 21 U/L (6-35); Alkaline Phosphatase 81 U/L (38-126); Anion Gap 1 mmol/L (8-16); Aspartate Amino Transferase 22 U/L (14-36); Bilirubin,Total 0.7 mg/dL (0.2-1.3); Blood Urea Nitrogen 17 mg/dL (7-17); Calcium 8.4 mg/dL (8.4-10.2); Carbon Dioxide 28 mmol/L (22-30); Chloride 106 mmol/L (98-107); Estimated CRCL calculation 41 ml/min; Estimated Glomerular Filt Rate > 60; Glucose 96 mg/dL (65-110); Potassium 3.9 mmol/L (3.4-5.0); Sodium 135 mmol/L (137-145)
[2022-05-27] MEDS: hydrALAZINE HCL 50 MG TABLET 100 MG PO ×2 (08:30→17:22)
[2022-05-27] MEDS: METOPROLOL SUCCINATE EXT REL 25 MG TABCR BY MOUTH (08:30)
[2022-05-27] MEDS: ASPIRIN 325 MG TABLET PO (08:31)
[2022-05-27] MEDS: CHOLECALCIFEROL 1,000 UNITS TABLET 1000 UNITS PO (08:31)
[2022-05-27] MEDS: ENOXAPARIN 40 MG/0.4 ML SYRINGE SUB-Q (08:31)
[2022-05-27] MEDS: lisinopriL 20 MG TABLET 40 MG PO (08:31)
[2022-05-27] MEDS: ATORVASTATIN 40 MG TABLET 80 MG BY MOUTH (08:31)
--- NOTE | 2022-05-27 15:04 | PM.IMPN ---
Progress Note: A&P Assessment and Plan (1) Non-sustained ventricular tachycardia: Code(s): I47.29 - Other ventricular tachycardia Status: Acute Assessment and Plan: Monitor telemetry, check electrolytes, appreciate cardiology consultation Etiology could be secondary to hyperthyroidism, possibly iatrogenic TSH undetectable, T4 elevated, T3 pending, hold levothyroxine Due to history of ischemic disease, cardiology is recommending stress testing, ECHO ordered and pending Would likely need ischemic eval versus EPS versus antiarrhythmic medication versus LifeVest prior to discharge? (2) Low serum thyroid stimulating hormone (TSH): Code(s): R79.89 - Other specified abnormal findings of blood chemistry Status: Acute Assessment and Plan: TSH was undetectable, free T3, free T4 2.4, hold levothyroxine (3) Coronary artery disease: Code(s): I25.10 - Atherosclerotic heart disease of [place] coronary artery without angina pectoris Status: Acute Assessment and Plan: Continue home aspirin, statin, quinapril, metoprolol (4) Hypertension: Code(s): I10 - Essential (primary) hypertension Status: Acute Assessment and Plan: Stable, continue home meds (5) Hypothyroidism: Code(s): E03.9 - Hypothyroidism, unspecified Status: Acute Assessment and Plan: Hold levothyroxine, see above (6) Dyslipidemia: Code(s): E78.5 - Hyperlipidemia, unspecified Status: Acute Assessment and Plan: Continue statin (7) Lesion of left [place] kidney: Code(s): N28.9 - Disorder of kidney and ureter, unspecified Status: Acute Assessment and Plan: 9 mm left kidney lesion, follow-up outpatient with further imaging and monitoring Plan Patient to be transferred to [facility] for EP evaluation. She was accepted by Dr Donovan with EP and Dr Villa with cardiology. They will let us know when a bed is available. THyroid peroxidase elevated, CRP/ESR Pt cannot have thyroid scan in the hospital must be outpatient. Subjective Date/time seen: 05/27/22 15:04 Interval history: No overnight events and no chest pain, SOB and vomiting or diarrhea Pt awaiting transfer to [facility] for EP doctor evaluation awaiting bed Review of Systems Review of Systems: No specific compliants All systems reviewed & are unremarkable except as noted in HPI and below Exam Narrative: General:? No acute distress, alert and oriented per baseline HEENT:? Atraumatic, normocephalic, mucous membranes moist CV:? Regular rate and rhythm, S1, S2 Lungs:? Clear to auscultation bilaterally, no rales or crackles noted, no wheezes, good air entry Abdomen:? Soft, nontender, nondistended Extremities:? Normal to inspection Skin:? No rashes noted, no lesions or wounds seen Psych:? Euthymic, normal affect Objective Data Vital Signs Vital Signs: Vital Signs - 24 hr 05/26/22 16:00 05/26/22 17:42 05/26/22 16:00 Temperature 36.6 C Pulse Rate 61 61 Respiratory Rate 20 Blood Pressure 92/51 L 118/60 Pulse Oximetry 96 Oxygen Delivery Fraction of Inspired Oxygen 05/26/22 18:00 05/26/22 16:00 05/26/22 20:19 Temperature 36.9 C Pulse Rate 57 L 56 L Respiratory Rate 20 Blood Pressure 139/83 Pulse Oximetry 96 Oxygen Delivery Room Air Fraction of Inspired Oxygen 05/26/22 20:00 05/26/22 20:00 05/26/22 23:12 Temperature 36.4 C Pulse Rate 60 60 86 Respiratory Rate 20 18 Blood Pressure 108/52 L Pulse Oximetry 96 98 Oxygen Delivery Room Air Fraction of Inspired Oxygen 21 05/26/22 22:00 05/27/22 00:00 05/27/22 00:00 Temperature Pulse Rate 58 L 52 L 52 L Respiratory Rate 18 Blood Pressure Pulse Oximetry 98 Oxygen Delivery Room Air Fraction of Inspired Oxygen 21 05/27/22 02:00 05/27/22 03:36 05/27/22 04:00 Temperature 36.4 C Pulse Rate 59 L 60 47 L Respiratory Ra
[2022-05-27] MEDS: MELATONIN 5 MG TABLET PO (20:41)
[2022-05-27] MEDS: EZETIMIBE 10 MG TABLET PO (20:41)
[2022-05-28] VITALS (14 sets, daily range): BP systolic 104–116; BP diastolic 52–75; PULSE 51–96; RESP 16–20; TEMP 36.1–37; O2SAT 95–98
[2022-05-28 05:15] LABS: Basophils Absolute Auto 0.1 K/mm3 (0.0-0.1); Basophils Percent Auto 0.8 % (0.2-1.2); Eosinophils Absolute Auto 0.2 K/mm3 (0-0.3); Hematocrit 34.4 % (37.0-47.0); Hemoglobin 10.8 g/dL (12.0-15.0); Immature Granulocyte Absolute 0.01 K/mm3 (0.00-0.031); Immature Granulocyte Percent A 0.2 % (0-0.5); Lymphocytes Absolute Auto 1.91 K/mm3 (0.9-3.2); Lymphocytes Percent Auto 31.8 % (18.3-44.2); Mean Corpuscular HGB Conc 31.4 g/dl (32-36); Mean Corpuscular Hemoglobin 27.7 pg (26-34); Mean Corpuscular Volume 88.2 fl (80-100); Mean Platelet Volume 12.2 fl (7.4-10.4); Monocytes Absolute Auto 0.6 K/mm3 (0.1-0.6); Neutrophils Absolute Auto 3.3 K/mm3 (1.3-6.7); Neutrophils Percent Auto 54.2 % (45.5-73.1); Platelet Count Result 172 k/mm3 (150-375); Red Cell Distribution Width 13.2 % (11.5-14.5)
[2022-05-28 05:29] LABS: Alanine Aminotransferase 25 U/L (6-35); Alkaline Phosphatase 73 U/L (38-126); Anion Gap 3 mmol/L (8-16); Aspartate Amino Transferase 28 U/L (14-36); Bilirubin,Total 0.7 mg/dL (0.2-1.3); Blood Urea Nitrogen 19 mg/dL (7-17); Calcium 8.3 mg/dL (8.4-10.2); Carbon Dioxide 26 mmol/L (22-30); Chloride 107 mmol/L (98-107); Estimated CRCL calculation 46 ml/min; Estimated Glomerular Filt Rate > 60; Glucose 92 mg/dL (65-110); Potassium 3.8 mmol/L (3.4-5.0); Sodium 136 mmol/L (137-145)
[2022-05-28] MEDS: ASPIRIN 325 MG TABLET PO (08:33)
[2022-05-28] MEDS: ATORVASTATIN 40 MG TABLET 80 MG BY MOUTH (08:33)
[2022-05-28] MEDS: lisinopriL 20 MG TABLET 40 MG PO (08:34)
[2022-05-28] MEDS: ENOXAPARIN 40 MG/0.4 ML SYRINGE SUB-Q (08:34)
[2022-05-28] MEDS: CHOLECALCIFEROL 1,000 UNITS TABLET 1000 UNITS PO (08:34)
[2022-05-28] MEDS: hydrALAZINE HCL 50 MG TABLET 100 MG PO ×2 (08:34→17:03)
[2022-05-28] MEDS: METOPROLOL SUCCINATE EXT REL 25 MG TABCR BY MOUTH (08:43)
--- NOTE | 2022-05-28 14:43 | PM.IMPN ---
Progress Note: A&P Assessment and Plan (1) NSVT (nonsustained ventricular tachycardia): Code(s): I47.29 - Other ventricular tachycardia Status: Acute (2) Low serum thyroid stimulating hormone (TSH): Code(s): R79.89 - Other specified abnormal findings of blood chemistry Status: Acute (3) Hypertension: Code(s): I10 - Essential (primary) hypertension Status: Acute (4) Coronary artery disease: Code(s): I25.10 - Atherosclerotic heart disease of [place] coronary artery without angina pectoris Status: Acute Plan 82-year-old female smoker with coronary artery disease and history of stent, hypertension, dyslipidemia, and hypothyroidism who presented to the ED from home for evaluation of shortness of breath.?While in the ER, patient noted to have 2 episodes of NSVT lasting 5-10 seconds, and during these episodes she was noted to be symptomatic with shortness of breath, which is similar to her presenting symptom. Troponins are negative. EKG without ischemic changes. CTA negative for PE. TSH undetectable, T4 elevated, T3 is high, thyroid peroxidase antibody is high, ? Angie thyroiditis, patient is asymptomatic. Patient to be transferred to [facility] for EP evaluation. She was accepted by Dr Donovan with EP and Dr Villa with cardiology. They will let us know when a bed is available. 1)Non Sustained Ventricular Tachycardia: Monitor electrolytes C/w tele Await Transfer to [facility] Would likely need ischemic eval versus EPS versus antiarrhythmic medication versus LifeVest prior to discharge? 2)Hyperthyroidism: ?[place] Thyroiditis Patient asymptomatic Pt cannot have thyroid scan in the hospital must be outpatient. 3)HTN:Stable c/w Lisinopril, Hyrdralaizine, BB 4)DVT ppx:Lovenox 5)Code:Full 6)Dispo:await transfer Time Spent With Patient Time with patient: 15 - 25 minutes Subjective Date/time seen: 05/28/22 14:43 Interval history: no acute events overnight await bed at [facility] Review of Systems Review of Systems: All systems reviewed & are unremarkable except as noted in HPI and below Constitutional: Constitutional: Reports no additional constitutional complaints Eyes: Eyes: Reports no additional eye complaints ENT: Reports system reviewed and no additional complaints, except as documented Cardiovascular: Cardiovascular: Reports no additional cardiovascular complaints Respiratory: Respiratory: Reports no additional respiratory complaints Gastrointestinal: Gastrointestinal: Reports no additional gastrointestinal complaints Musculoskeletal: Musculoskeletal: Reports no additional musculoskeletal complaints Neurologic: Reports system reviewed and no additional complaints, except as documented Exam Const: General: comfortable and no acute distress HENMT: Mouth: Yes moist mucous membranes Eyes: General: appearance normal, both eyes and all related structures Neck: Neck: supple Resp: Effort & Inspection: normal respiratory effort Auscultation: clear to auscultation bilaterally Cardio: Rate: regular rate Rhythm: regular rhythm GI: GI Palp: Yes Soft to palpation Auscultation: normal bowel sounds Skin: General skin exam: normal color Neuro: Speech: normal speech Extrem: General: normal to inspection Psych: Mental Status: mental status grossly normal Objective Data Vital Signs Vital Signs: Vital Signs - 24 hr 05/27/22 15:51 05/27/22 15:57 05/27/22 16:00 Temperature 97.4 F L Pulse Rate 58 L 65 Respiratory Rate 16 Blood Pressure 126/61 Pulse Oximetry 96 100 Oxygen Delivery Room Air Fraction of Inspired Oxygen 05/27/22 18:00 05/27/22 19:41 05/27/22 20:00 Temperature 97.8 F Pulse Rate 65 66 61 Respiratory Rate 20 Blood Pressure 122/55 L Pulse Oximetry 97 Oxygen Delivery Fraction of Inspired Oxygen 05/27/22 20:00 05/27/22 22:00 05/27/22 23:26 Temperature 97.9 F Pulse Rate 61 56 L 56 L Respiratory Rate 20 20 Bloo
[2022-05-28] MEDS: EZETIMIBE 10 MG TABLET PO (20:54)
[2022-05-28] MEDS: MELATONIN 5 MG TABLET PO (20:54)
[2022-05-29] VITALS (13 sets, daily range): BP systolic 92–132; BP diastolic 42–64; PULSE 49–86; RESP 16–18; TEMP 35.9–36.6; O2SAT 76–100
[2022-05-29 05:11] LABS: Basophils Absolute Auto 0.1 K/mm3 (0.0-0.1); Basophils Percent Auto 0.7 % (0.2-1.2); Eosinophils Absolute Auto 0.2 K/mm3 (0-0.3); Hematocrit 36.5 % (37.0-47.0); Hemoglobin 11.3 g/dL (12.0-15.0); Immature Granulocyte Absolute 0.02 K/mm3 (0.00-0.031); Immature Granulocyte Percent A 0.3 % (0-0.5); Lymphocytes Absolute Auto 2.17 K/mm3 (0.9-3.2); Lymphocytes Percent Auto 30.5 % (18.3-44.2); Mean Corpuscular Hemoglobin 27.3 pg (26-34); Mean Corpuscular Volume 88.2 fl (80-100); Mean Platelet Volume 12.1 fl (7.4-10.4); Monocytes Absolute Auto 0.7 K/mm3 (0.1-0.6); Monocytes Percent Auto 9.1 % (2.6-8.5); Neutrophils Percent Auto 56.4 % (45.5-73.1); Platelet Count Result 179 k/mm3 (150-375); Red Blood Count 4.14 M/mm3 (4.2-5.4); Red Cell Distribution Width 13.3 % (11.5-14.5); White Blood Count 7.1 K/mm3 (4.5-10.0)
[2022-05-29 05:24] LABS: Alanine Aminotransferase 27 U/L (6-35); Alkaline Phosphatase 81 U/L (38-126); Anion Gap 1 mmol/L (8-16); Aspartate Amino Transferase 28 U/L (14-36); Bilirubin,Total 0.7 mg/dL (0.2-1.3); Blood Urea Nitrogen 17 mg/dL (7-17); Calcium 8.4 mg/dL (8.4-10.2); Carbon Dioxide 28 mmol/L (22-30); Chloride 109 mmol/L (98-107); Estimated CRCL calculation 41 ml/min; Estimated Glomerular Filt Rate > 60; Glucose 93 mg/dL (65-110); Potassium 3.8 mmol/L (3.4-5.0); Sodium 138 mmol/L (137-145)
[2022-05-29] MEDS: CHOLECALCIFEROL 1,000 UNITS TABLET 1000 UNITS PO (09:07)
[2022-05-29] MEDS: lisinopriL 20 MG TABLET 40 MG PO (09:07)
[2022-05-29] MEDS: METOPROLOL SUCCINATE EXT REL 25 MG TABCR BY MOUTH (09:07)
[2022-05-29] MEDS: ASPIRIN 325 MG TABLET PO (09:07)
[2022-05-29] MEDS: hydrALAZINE HCL 50 MG TABLET 100 MG PO ×2 (09:07→17:21)
[2022-05-29] MEDS: ATORVASTATIN 40 MG TABLET 80 MG BY MOUTH (09:07)
[2022-05-29] MEDS: ENOXAPARIN 40 MG/0.4 ML SYRINGE SUB-Q (09:08)
[2022-05-29 14:32] LABS: Thyroid Stimulating Immunoglob <89 % baseline (<140)
--- NOTE | 2022-05-29 14:34 | PCNFU ---
Nutrition Follow-Up Complete: Unintentional weight loss related to reduced appetite and intake as evidenced pt report. PO intake 75% or greater for meals and supplements. - goal being met Goal: Pt current nutrition is Regular diet with nutritional ice cream BID. Nutrition recommendation: Continue current diet order. Agree with diet order Last recorded weight is 61.4 kg. Bowel Motility: Last BM 04/26/22 Labs Reviewed: Hgb 11.3, Hct 36.5, Alb 3.0 Meds Noted: Lovenox, Vit D Skin: WNL Additional Notes: Follow up for unintentional weight loss. Intakes are good. Labs improved. Agree with current orders. Monitor intake, wt, labs. Follow up in 7 days.
--- NOTE | 2022-05-29 14:36 | PM.IMPN ---
Progress Note: A&P Assessment and Plan (1) NSVT (nonsustained ventricular tachycardia): Code(s): I47.29 - Other ventricular tachycardia Status: Acute (2) Low serum thyroid stimulating hormone (TSH): Code(s): R79.89 - Other specified abnormal findings of blood chemistry Status: Acute (3) Hypertension: Code(s): I10 - Essential (primary) hypertension Status: Acute (4) Coronary artery disease: Code(s): I25.10 - Atherosclerotic heart disease of [place] coronary artery without angina pectoris Status: Acute Plan 82-year-old female smoker with coronary artery disease and history of stent, hypertension, dyslipidemia, and hypothyroidism who presented to the ED from home for evaluation of shortness of breath.?While in the ER, patient noted to have 2 episodes of NSVT lasting 5-10 seconds, and during these episodes she was noted to be symptomatic with shortness of breath, which is similar to her presenting symptom. Troponins are negative. EKG without ischemic changes. CTA negative for PE. TSH undetectable, T4 elevated, T3 is high, thyroid peroxidase antibody is high, ? Angie thyroiditis, patient is asymptomatic. Patient to be transferred to [facility] for EP evaluation. She was accepted by Dr Donovan with EP and Dr Villa with cardiology. Still awaiting bed # Non Sustained Ventricular Tachycardia: Monitor electrolytes C/w tele. No further events on telemetry monitoring and has remained in normal sinus rhythm Await Transfer to [facility] Would likely need ischemic eval versus EPS versus antiarrhythmic medication versus LifeVest prior to discharge? Discussed with Cardiology regarding the case. Deferred cardiac catheterization due to potentially worsening her hyperthyroidism with the iodine load. Stress test was offered refused by the daughter. Advised for 2nd opinion and the os the case was discussed with [facility] cardiology/EP and was accepted for transfer. With no beds available discussed option of discharging home on event monitor and following up as an outpatient basis with EP. This was refused by the daughter at this time. Given the disagreement, will consult Dr. Mesa another cardiology group here for his opinion. # Hyperthyroidism: ?[place] Thyroiditis Patient asymptomatic Pt cannot have thyroid scan in the hospital must be outpatient. # HTN:Stable c/w Lisinopril, Hyrdralaizine, BB # DVT ppx:Lovenox # Code:Full # Dispo: Awaiting transfer. Potentially could be discharged and followed up as an outpatient basis Subjective Date/time seen: 05/29/22 14:36 Interval history: Patient reports no ongoing symptoms. Telemetry reveals normal sinus rhythm with no arrhythmia at least since 05/24/2022. She has been awaiting bed at [facility] for EP evaluation. Discussed with daughter over the phone who is an ER physician. Discussed findings and recommendations with her with potentially discharging home with follow-up as an outpatient basis with Endocrinology as well as EP. Discussed discharge on event monitor to see any further episodes developed. Also reported thyroid function studies noted on admission. Review of Systems Review of Systems: All systems reviewed & are unremarkable except as noted in HPI and below Exam Narrative: General:? No acute distress, alert and oriented per baseline HEENT:? Atraumatic, normocephalic, mucous membranes moist CV:? Regular rate and rhythm, S1, S2 Lungs:? Clear to auscultation bilaterally, no rales or crackles noted, no wheezes, good air entry Abdomen:? Soft, nontender, nondistended Extremities:? Normal to inspection Skin:? No rashes noted, no lesions or wounds seen Psych:? Euthymic, normal affect Objective Data Vital Signs Vital Signs: Vital Signs - 24 hr 05/28/22 16:00 05/28/22 16:00 05/28/22 16:00 Temperature 97.6 F Pulse Rate 62 60 60 Respiratory Rate 16 20 Blood Pressure 114/52 L Pulse Oximetry 98 97 Oxygen Deliver
[2022-05-29 16:12] LABS: Thyroid Stimulating Hormone Reflex 0.023 uIU/mL (0.465-4.68)
--- NOTE | 2022-05-29 16:22 | PM.CNCAR ---
Assessment and Plan Assessment and plan (1) NSVT (nonsustained ventricular tachycardia): Code(s): I47.29 - Other ventricular tachycardia Status: Acute Assessment and Plan: Discuss with patient, patient's daughter on phone who is an ER physician in [place], patient's son and daughter in room, extensively that I agree with Dr. Webb's plan to obtain a stress test to assess for ischemia. Differential includes CAD, emotional stress, consider sleep apnea. Her daughter from [place] disagrees with the plan. I told her that I can ask her regular heel caser, Dr. Crawford to see her and get his input. (2) Coronary artery disease: Code(s): I25.10 - Atherosclerotic heart disease of [place] coronary artery without angina pectoris Status: Acute (3) Hypertension: Code(s): I10 - Essential (primary) hypertension Status: Acute (4) Dyslipidemia: Code(s): E78.5 - Hyperlipidemia, unspecified Status: Acute (5) Hypothyroidism: Code(s): E03.9 - Hypothyroidism, unspecified Status: Acute History of Present Illness History of Present Illness Consult date/time: 05/29/22 16:22 Reason For Visit: nsvt Narrative: This is a patient of Dr. Crawford's and I'm here to offer a second opinion as requested by the family. She is an 82-year-old female with a history of CAD s/p PCI to her LAD in the remote past, tobacco dependence, hypertension, hyperlipidemia, hypothyroidism. Last saw Dr. Crawford in 07/2021 and was doing well at that time. Patient presented to the ER for shortness of breath that has been ongoing for a few weeks now. Episodes are brief, can occur randomly. Has felt some palpitations as well. Patient's in January, and things have been stressful for her since then. Patient now lives alone. Her daughter (an ER physician) is in town from [place] and I spoke with her on phone and with her son and daughter in the room extensively. Patient denies any chest pain. In the ER, while on telemetry, it was reported that she had 2 episodes of NSVT lasting up to 10 seconds. No lower extremity edema, orthopnea. Review of Systems Review of Systems: 12-point ROS obtained. Negative, unless stated in HPI. All systems reviewed & are unremarkable except as noted in HPI and below PMFSH Past Medical History Medical History Coronary artery disease Dyslipidemia Hypertension Hypothyroidism Vitamin D deficiency Surgical History Surgical History History of appendectomy History of arthroscopic knee surgery History of heart artery stent Family History Family History Sibling Patient's sister is in good health Mother Family history of malignant neoplasm of breast in first degree relative Father Family history of coronary artery disease Social History Social History Social History: Surrogate medical decision maker: Emilia Pedraza, daughter. Code status: Full code. She would not want to be on life support longer than 2.5 days. Smoking packs per day: 0.5 Smoking cigarettes per day: 10.0 Years smoked: 64 Smoking pack-years: 32.00 Smoking status: Current every day smoker Alcohol intake: never Lack of Transportation: No Lack of Food: Often True Current Housing: I Have Housing Concerned About Future Housing: No Difficulty Paying Gas/Electric Bills: No Difficulty Paying for Meds: No Currently Unemployed: No Education: Associate Degree Difficulty w/ Childcare or Family Care: No Additional living arrangements comments: as of January 2022. Lives alone in [place] with her dog. Spiritual care concerns: No Meds Home Medications and Allergies Home Medications Medication Instructions Recorded Confirmed Type aspirin 325 mg tablet
[2022-05-29] MEDS: EZETIMIBE 10 MG TABLET PO (20:31)
[2022-05-29] MEDS: MELATONIN 5 MG TABLET PO (20:31)
[2022-05-30] VITALS (16 sets, daily range): BP systolic 91–111; BP diastolic 46–55; PULSE 52–68; RESP 16–18; TEMP 35.6–36.7; O2SAT 95–99
[2022-05-30 04:50] LABS: Basophils Absolute Auto 0.1 K/mm3 (0.0-0.1); Basophils Percent Auto 0.8 % (0.2-1.2); Eosinophils Absolute Auto 0.2 K/mm3 (0-0.3); Eosinophils Percent Auto 3.2 % (0-4.4); Hematocrit 35.1 % (37.0-47.0); Immature Granulocyte Absolute 0.02 K/mm3 (0.00-0.031); Immature Granulocyte Percent A 0.3 % (0-0.5); Lymphocytes Absolute Auto 2.02 K/mm3 (0.9-3.2); Lymphocytes Percent Auto 30.9 % (18.3-44.2); Mean Corpuscular HGB Conc 31.3 g/dl (32-36); Mean Corpuscular Hemoglobin 28.3 pg (26-34); Mean Corpuscular Volume 90.2 fl (80-100); Mean Platelet Volume 11.8 fl (7.4-10.4); Monocytes Absolute Auto 0.6 K/mm3 (0.1-0.6); Monocytes Percent Auto 9.5 % (2.6-8.5); Neutrophils Absolute Auto 3.6 K/mm3 (1.3-6.7); Neutrophils Percent Auto 55.3 % (45.5-73.1); Platelet Count Result 171 k/mm3 (150-375); Red Blood Count 3.89 M/mm3 (4.2-5.4); Red Cell Distribution Width 13.4 % (11.5-14.5); White Blood Count 6.5 K/mm3 (4.5-10.0)
[2022-05-30 05:07] LABS: Alanine Aminotransferase 27 U/L (6-35); Alkaline Phosphatase 75 U/L (38-126); Anion Gap 1 mmol/L (8-16); Aspartate Amino Transferase 27 U/L (14-36); Bilirubin,Total 0.6 mg/dL (0.2-1.3); Blood Urea Nitrogen 18 mg/dL (7-17); Calcium 8.5 mg/dL (8.4-10.2); Carbon Dioxide 26 mmol/L (22-30); Chloride 110 mmol/L (98-107); Estimated CRCL calculation 37 ml/min; Estimated Glomerular Filt Rate 60; Glucose 95 mg/dL (65-110); Magnesium 2.1 mg/dL (1.6-2.3); Sodium 137 mmol/L (137-145)
[2022-05-30 05:31] LABS: Total Triiodothyronine (T3) 1.02 NG/ML (0.97-1.69)
[2022-05-30 06:35] LABS: Free T4 Free Thyroxine 1.08 ng/mL (0.78-2.19)
[2022-05-30] MEDS: lisinopriL 20 MG TABLET 40 MG PO (09:06)
[2022-05-30] MEDS: CHOLECALCIFEROL 1,000 UNITS TABLET 1000 UNITS PO (09:06)
[2022-05-30] MEDS: METOPROLOL SUCCINATE EXT REL 25 MG TABCR BY MOUTH (09:06)
[2022-05-30] MEDS: ASPIRIN 325 MG TABLET PO (09:06)
[2022-05-30] MEDS: hydrALAZINE HCL 50 MG TABLET 100 MG PO ×2 (09:06→17:46)
[2022-05-30] MEDS: ATORVASTATIN 40 MG TABLET 80 MG BY MOUTH (09:07)
[2022-05-30] MEDS: ENOXAPARIN 40 MG/0.4 ML SYRINGE SUB-Q (09:07)
--- NOTE | 2022-05-30 16:20 | PM.IMPN ---
Progress Note: A&P Assessment and Plan (1) NSVT (nonsustained ventricular tachycardia): Code(s): I47.29 - Other ventricular tachycardia Status: Acute (2) Low serum thyroid stimulating hormone (TSH): Code(s): R79.89 - Other specified abnormal findings of blood chemistry Status: Acute (3) Hypertension: Code(s): I10 - Essential (primary) hypertension Status: Acute (4) Coronary artery disease: Code(s): I25.10 - Atherosclerotic heart disease of [place] coronary artery without angina pectoris Status: Acute Plan 82-year-old female smoker with coronary artery disease and history of stent, hypertension, dyslipidemia, and hypothyroidism who presented to the ED from home for evaluation of shortness of breath.?While in the ER, patient noted to have 2 episodes of NSVT lasting 5-10 seconds, and during these episodes she was noted to be symptomatic with shortness of breath, which is similar to her presenting symptom. Troponins are negative. EKG without ischemic changes. CTA negative for PE. TSH undetectable, T4 elevated, T3 is high, thyroid peroxidase antibody is high, ? Angie thyroiditis, patient is asymptomatic. Patient to be transferred to [facility] for EP evaluation. She was accepted by Dr Donovan with EP and Dr Villa with cardiology. Still awaiting bed # Non Sustained Ventricular Tachycardia: Monitor electrolytes C/w tele. No further events on telemetry monitoring and has remained in normal sinus rhythm Await Transfer to [facility] Would likely need ischemic eval versus EPS versus antiarrhythmic medication versus LifeVest prior to discharge? Discussed with Cardiology regarding the case. Deferred cardiac catheterization due to potentially worsening her hyperthyroidism with the iodine load. Stress test was offered refused by the daughter. Advised for 2nd opinion and the os the case was discussed with [facility] cardiology/EP and was accepted for transfer. With no beds available discussed option of discharging home on event monitor and following up as an outpatient basis with EP. This was refused by the daughter at this time. Given the disagreement, will consult Dr. Mesa another cardiology group here for his opinion. He has suggested stress test which has been declined by daughter. # Hyperthyroidism: ?[place] Thyroiditis Patient asymptomatic Pt cannot have thyroid scan in the hospital must be outpatient. # HTN:Stable c/w Lisinopril, Hyrdralaizine, BB # DVT ppx:Lovenox # Code:Full # Dispo: Awaiting transfer. Potentially could be discharged and followed up as an outpatient basis Subjective Date/time seen: 05/30/22 16:20 Interval history: No overnight events. Son at bedside. Denies any complaints. Telemetry reviewed with no events noted. Review of Systems Review of Systems: All systems reviewed & are unremarkable except as noted in HPI and below Exam Narrative: General:? No acute distress, alert and oriented per baseline HEENT:? Atraumatic, normocephalic, mucous membranes moist CV:? Regular rate and rhythm, S1, S2 Lungs:? Clear to auscultation bilaterally, no rales or crackles noted, no wheezes, good air entry Abdomen:? Soft, nontender, nondistended Extremities:? Normal to inspection Skin:? No rashes noted, no lesions or wounds seen Psych:? Euthymic, normal affect Objective Data Vital Signs Vital Signs: Vital Signs - 24 hr 05/29/22 18:00 05/29/22 20:00 05/29/22 20:00 Temperature 97.9 F Pulse Rate 60 63 62 Respiratory Rate 18 Blood Pressure 103/53 L Pulse Oximetry 94 Oxygen Delivery Fraction of Inspired Oxygen 05/29/22 20:00 05/29/22 22:00 05/29/22 23:39 Temperature 97.5 F L Pulse Rate 62 53 L 58 L Respiratory Rate 18 16 Blood Pressure 105/50 L Pulse Oximetry 94 96 Oxygen Delivery Room Air Fraction of Inspired Oxygen 21 05/30/22 00:00 05/30/22 00:00 05/30/22 02:00 Temperature Pulse Rate 53 L 53 L 53 L Respiratory Ra
[2022-05-30] MEDS: EZETIMIBE 10 MG TABLET PO (19:59)
[2022-05-30] MEDS: MELATONIN 5 MG TABLET PO (19:59)
[2022-05-31] VITALS: BP 95/50; PULSE 53; PULSE 58; RESP 18; TEMP 36.6; O2SAT 96
[2022-05-31 02:00] VITALS: PULSE 53
[2022-05-31 04:00] VITALS: BP 92/47; PULSE 51; PULSE 56; RESP 16; RESP 18; TEMP 36.8; O2SAT 96; O2SAT 99
[2022-05-31 04:52] LABS: Basophils Absolute Auto 0.1 K/mm3 (0.0-0.1); Basophils Percent Auto 0.7 % (0.2-1.2); Eosinophils Absolute Auto 0.2 K/mm3 (0-0.3); Eosinophils Percent Auto 2.5 % (0-4.4); Hematocrit 35.5 % (37.0-47.0); Hemoglobin 11.1 g/dL (12.0-15.0); Immature Granulocyte Absolute 0.03 K/mm3 (0.00-0.031); Immature Granulocyte Percent A 0.4 % (0-0.5); Lymphocytes Absolute Auto 1.78 K/mm3 (0.9-3.2); Lymphocytes Percent Auto 26.3 % (18.3-44.2); Mean Corpuscular HGB Conc 31.3 g/dl (32-36); Mean Corpuscular Hemoglobin 28.3 pg (26-34); Mean Corpuscular Volume 90.6 fl (80-100); Mean Platelet Volume 11.7 fl (7.4-10.4); Monocytes Absolute Auto 0.7 K/mm3 (0.1-0.6); Monocytes Percent Auto 9.7 % (2.6-8.5); Neutrophils Absolute Auto 4.1 K/mm3 (1.3-6.7); Neutrophils Percent Auto 60.4 % (45.5-73.1); Platelet Count Result 175 k/mm3 (150-375); Red Blood Count 3.92 M/mm3 (4.2-5.4); Red Cell Distribution Width 13.7 % (11.5-14.5); White Blood Count 6.8 K/mm3 (4.5-10.0)
[2022-05-31 04:57] LABS: Alanine Aminotransferase 27 U/L (6-35); Albumin Level 3.1 g/dL (3.5-5.1); Alkaline Phosphatase 75 U/L (38-126); Anion Gap 1 mmol/L (8-16); Aspartate Amino Transferase 27 U/L (14-36); Bilirubin,Total 0.7 mg/dL (0.2-1.3); Blood Urea Nitrogen 17 mg/dL (7-17); Calcium 8.4 mg/dL (8.4-10.2); Carbon Dioxide 25 mmol/L (22-30); Chloride 112 mmol/L (98-107); Estimated CRCL calculation 37 ml/min; Estimated Glomerular Filt Rate 60; Glucose 96 mg/dL (65-110); Potassium 3.9 mmol/L (3.4-5.0); Sodium 138 mmol/L (137-145)
[2022-05-31 06:00] VITALS: PULSE 52
[2022-05-31 08:00] VITALS: BP 96/60; PULSE 69; PULSE 95; RESP 18; TEMP 36.6; O2SAT 95
--- NOTE | 2022-05-31 08:26 | PM.PNCARD ---
Progress Note: A&P Assessment and Plan (1) NSVT (nonsustained ventricular tachycardia): Code(s): I47.29 - Other ventricular tachycardia Status: Acute (2) Coronary artery disease: Code(s): I25.10 - Atherosclerotic heart disease of [place] coronary artery without angina pectoris Status: Acute Plan 82-year-old lady with coronary artery disease remote history of PCI to the LAD, no recent ischemic symptoms and she has normal left ventricular systolic function. In the setting of hyperthyroidism she does have some nonsustained ventricular tachycardia. The patient has had no arrhythmias on telemetry since admission. The patient has been sitting in the hospital at the request of her daughter who is a physician out of state. Request for when desire for EP consultation has been holding up her discharge. In my opinion as well as my partner as well as Dr. Mesa she is stable for discharge. It is certainly reasonable to request an EP consultation but that does not have to happen as an inpatient to inpatient transfer. The patient would like to be discharged and I believe we should accommodate that. Ideally would be nice if her daughter who is also a physician would be in agreement with this but that is not necessary for us to discharge are patient and to conduct her evaluation and treatment as we believes in her best interest. I will direct my staff to schedule an appointment with our senior consultant, Dr. Vinson as an outpatient. She is stable for discharge today. Anselmo Crawford MD [facility] Subjective Date/time seen: Date of service: 05/31/22 08:26 Interval history: Follow-up visit in this 82-year-old woman with: History of coronary artery disease remote history of PCI doing very well for many years. Unfortunately patient has ongoing history of cigarette smoking. Admitted to the hospital 11 days ago and was found in the emergency room to have 2 brief episodes of nonsustained ventricular tachycardia. She has also been found to be hyperthyroid. Left ventricular systolic function by echo remains well preserved. Patient's telemetry has been stable since discharge. She feels well this morning and we would like to be discharged and have outpatient EP consultation. Exam Const: General: comfortable and no acute distress Other: Very pleasant elderly lady no distress HENMT: Mouth: Yes moist mucous membranes Eyes: Sclera: sclerae normal Pupils: Equal, round and reactive pupils present Neck: Neck: supple and no JVD Other: Carotid pulses are intact and normal in character bilaterally Resp: Effort & Inspection: normal respiratory effort Auscultation: clear to auscultation bilaterally Cardio: Rate: regular rate Rhythm: regular rhythm Other: PMI nondisplaced no murmur no gallop no rub GI: GI Palp: Yes Soft to palpation Auscultation: normal bowel sounds Skin: General skin exam: normal color Neuro: Other: Alert and oriented x3, normal cognition Extrem: Other: No edema, good distal pulses Objective Data Vital Signs Vital Signs: Vital Signs - 24 hr 05/30/22 09:06 05/30/22 11:45 05/30/22 10:00 Temperature 36.1 C L Pulse Rate 63 64 68 Respiratory Rate Blood Pressure 98/53 L Pulse Oximetry 96 Oxygen Delivery Fraction of Inspired Oxygen 05/30/22 12:00 05/30/22 16:13 05/30/22 14:00 Temperature 35.9 C L Pulse Rate 67 60 62 Respiratory Rate 16 Blood Pressure 107/52 L Pulse Oximetry 99 Oxygen Delivery Fraction of Inspired Oxygen 05/30/22 16:00 05/30/22 18:00 05/30/22 20:00 Temperature 36.7 C Pulse Rate 64 60 64 Respiratory Rate 18 Blood Pressure 91/46 L Pulse Oximetry 95 Oxygen Delivery Fraction of Inspired Oxygen 05/30/22 20:00 05/30/22 20:00 05/30/22 22:00 Temperature Pulse Rate 64 64 56 L Respiratory Rate 18 Blood Pressure Pulse Oximetry 95 Oxygen Delivery Room Air Fraction of Inspired Oxygen 21 05/31/22
--- NOTE | 2022-05-31 09:54 | PM.DS ---
DS: Admitting Diagnosis Discharge Date 05/31/2022 Admitting Diagnosis shortness of breath DS: Discharge Diagnosis Discharge Diagnosis (1) NSVT (nonsustained ventricular tachycardia): Code(s): I47.29 - Other ventricular tachycardia Status: Acute (2) Low serum thyroid stimulating hormone (TSH): Code(s): R79.89 - Other specified abnormal findings of blood chemistry Status: Acute (3) Hypertension: Code(s): I10 - Essential (primary) hypertension Status: Acute (4) Coronary artery disease: Code(s): I25.10 - Atherosclerotic heart disease of [place] coronary artery without angina pectoris Status: Acute DS: Summary Hospital Course Hospital Course: 82-year-old female smoker with coronary artery disease and history of stent, hypertension, dyslipidemia, and hypothyroidism who presented to the ED from home for evaluation of shortness of breath.?While in the ER, patient noted to have 2 episodes of NSVT lasting 5-10 seconds, and during these episodes she was noted to be symptomatic with shortness of breath, which is similar to her presenting symptom. Troponins are negative. EKG without ischemic changes. CTA negative for PE. TSH undetectable, T4 elevated, T3 is high, thyroid peroxidase antibody is high, ? Angie thyroiditis, patient is asymptomatic. she was admitted for further evaluation and management in the setting. # Non Sustained Ventricular Tachycardia: Electrolytes were monitored. She was monitored on telemetry for further episodes however for the past 10 days she has not had any evidence of non sustained ventricular tachycardia and remains in normal sinus rhythm. Initial cardiology evaluation suggested stress test and cardiac catheterization was deferred due to potentially worsening her hyperthyroidism with the iodine load. Stress test however was refused by the daughter. She was then discussed with EP as an outpatient basis at the time of admission and was awaiting transfer [facility]. However with no evidence of further nonsustained ventricular tachycardia and in availability of the bed for more than 10 days and stable heart function outpatient follow-up was discussed. This was however refused by the daughter. Second opinion from 2 different cardiologists was obtained and agreed with the plan to discharge home and perform outpatient EP follow-up. She is agreeable for discharge and is alert and oriented x3 and able to make her own decisions. She will be discharged home with plan to follow-up with EP as an outpatient basis. #? Hyperthyroidism: ?[place] Thyroiditis Patient asymptomatic Pt cannot have thyroid scan in the hospital must be outpatient. Levothyroxine at home was stopped follow-up TSH slightly improved. She will need a TSH test in 4 weeks. She might need follow-up with [employer] specialist for further evaluation and management As an outpatient basis. Hypothyroidism Is suspected to cause her initial nonsustained ventricular tachycardia.. # HTN:Stable c/w Lisinopril, Hyrdralaizine, BB # DVT ppx:Lovenox # Code:Full # Dispo:? discharge home Time Spent with Patient Time attestation: Total time spent providing and/or coordinating discharge services: 45 minutes Exam Narrative: General:? No acute distress, alert and oriented per baseline HEENT:? Atraumatic, normocephalic, mucous membranes moist CV:? Regular rate and rhythm, S1, S2 Lungs:? Clear to auscultation bilaterally, no rales or crackles noted, no wheezes, good air entry Abdomen:? Soft, nontender, nondistended Extremities:? Normal to inspection Skin:? No rashes noted, no lesions or wounds seen Psych:? Euthymic, normal affect DS: Data Data Completed and Pending Completed studies during hospitalization: Exam Type: ? ? CA echo dop color flow w con Study Info Indications ?? ? - NSVT ?? ? - CAD Complete two-dimensional, color flow and Doppler transthoracic echocardiogram is performed with contra
[2022-05-31 10:00] VITALS: PULSE 58
[2022-05-31] MEDS: METOPROLOL SUCCINATE EXT REL 25 MG TABCR BY MOUTH (10:04)
[2022-05-31] MEDS: ENOXAPARIN 40 MG/0.4 ML SYRINGE SUB-Q (10:05)
[2022-05-31] MEDS: ASPIRIN 325 MG TABLET PO (10:05)
[2022-05-31] MEDS: ATORVASTATIN 40 MG TABLET 80 MG BY MOUTH (10:05)
[2022-05-31] MEDS: CHOLECALCIFEROL 1,000 UNITS TABLET 1000 UNITS PO (10:05)
== END 2022-05-31 11:24 | disposition home or self-care (01) | DRG 310 ==
LOC: ANHED 12:43 → ANHIMU 16:22
PROVIDERS: Internal Medicine; Physician Assistant; Student in an Organized Health Care Education/Training Program; Admitting Provider Internal Medicine; Emergency Provider Emergency Medicine; PCP Internal Medicine; Visit Provider Internal Medicine
DX: I47.29 Other ventricular tachycardia (principal); E05.80 Other thyrotoxicosis without thyrotoxic crisis or storm; T38.1X5A Adverse effect of thyroid hormones and substitutes, initial encounter; I25.10 Atherosclerotic heart disease of native coronary artery without angina pectoris; I10 Essential (primary) hypertension; E78.5 Hyperlipidemia, unspecified; E03.9 Hypothyroidism, unspecified; E55.9 Vitamin D deficiency, unspecified; N28.9 Disorder of kidney and ureter, unspecified; R19.7 Diarrhea, unspecified; F17.210 Nicotine dependence, cigarettes, uncomplicated; Z20.822 Contact with and (suspected) exposure to COVID-19; Z95.5 Presence of coronary angioplasty implant and graft; Z79.82 Long term (current) use of aspirin
CPT/HCPCS: 36415; 71046; 71275; 76536; 80048; 80053; 83735; 83880; 84439; 84443; 84445; 84480; 84481; 84484; 85025; 85027; 85380; 85610; 85652; 85730; 86140; 86376; 87636; 93005; 94640; 96374; 97161; 97165; 99285; A9270; C8929; G0378; J1650; J7030; J7120; Q9957; Q9967

== ENCOUNTER 2022-07-18 06:39 | Outpatient (CLI) | payer MEDICARE, OTHER, SELFPAY | END 2022-07-18 06:40 | disposition home or self-care (01) | PROVIDERS: PCP Internal Medicine; Visit Provider Internal Medicine | DX: E03.9 Hypothyroidism, unspecified (principal) | CPT/HCPCS: 36415; 82533; 96372; J0834 ==

== ENCOUNTER 2022-07-25 15:26 | Emergency (ER) | payer MEDICARE, OTHER, SELFPAY ==
--- NOTE | ~2022-07-25 | XR_ITS ---
XR foot LT min 3V DATE: 07/25/2022 15:54 INDICATION: Fall 2 days ago. Bruising and swelling TECHNIQUE: 4 views COMPARISON: None FINDINGS: There is osteopenia. There is mild hallux valgus and bunion deformity. There is mild osteoarthritis at the first metatarso phalangeal joint and the interphalangeal joints. No fracture, dislocation, periosteal reaction or bone destruction is detected. IMPRESSION: Osteopenia Mild hallux valgus and bunion deformity Mild osteoarthritis Reviewed, dictated and finalized at location A.
--- NOTE | ~2022-07-25 | XR_ITS ---
XR ankle LT min 3V DATE: 07/25/2022 15:54 INDICATION: Fall 2 days ago. Bruising, swelling. TECHNIQUE: 4 views COMPARISON: None FINDINGS: There is osteopenia. There is soft tissue swelling of the ankle medially and to a greater extent laterally. No fracture or dislocation of the ankle or disruption of the ankle mortise is detected. IMPRESSION: Soft tissue swelling; no fracture or dislocation Reviewed, dictated and finalized at location A.
[2022-07-25 15:39] VITALS: BP 138/64; PULSE 69; RESP 12; TEMP 36.6; O2SAT 97
[2022-07-25 15:42] VITALS: BP 138/64; PULSE 69; RESP 12; TEMP 36.6; O2SAT 97
--- NOTE | 2022-07-25 15:50 | ED.LOWEXIN ---
HPI - Extremity Injury (Lower) General Chief Complaint: Extremity Injury, Lower Stated Complaint: Right Ankle Pain Time Seen by Provider: 07/25/22 16:00 Source: patient and RN notes reviewed Mode of arrival: ambulatory Limitations: no limitations History of Present Illness HPI Narrative: 82-year-old female presents concern for injury to left ankle and foot. Reports she slipped and fell yesterday and hit the outside of her ankle on the floor. She reports bruising, swelling. She denies pain at rest. Reports pain with weight-bearing. She denies decreased strength, sensation, range of motion MD complaint: ankle injury Related Data Home Medications Medication Instructions Recorded Confirmed aspirin 325 mg tablet 325 mg PO DAILY 12/02/19 05/20/22 cholecalciferol (vitamin D3) 25 25 mcg PO DAILY 12/02/19 05/20/22 mcg (1,000 unit) tablet ezetimibe 10 mg tablet 10 mg PO HS 05/20/22 05/20/22 Allergies Allergy/AdvReac Type Severity Reaction Status Date / Time amoxicillin Allergy Mild RASH Verified 07/25/22 15:41 Penicillins Allergy Mild hives Verified 07/25/22 15:41 Review of Systems Review of Systems: CONSTITUTIONAL: Denies malaise, chills, sweats, or fever. SKIN: Denies rash or itching, open skin, laceration, abrasion, redness, warmth, swelling. MUSCULOSKELETAL: Reports left ankle, foot pain, bruising and swelling NEUROLOGIC: Denies numbness, weakness All systems reviewed & are unremarkable except as noted in HPI and below PMFSH Past Medical History Medical History Coronary artery disease Dyslipidemia Hypertension Hypothyroidism Vitamin D deficiency Surgical History Surgical History History of appendectomy History of arthroscopic knee surgery History of heart artery stent Family History Family History Sibling Patient's sister is in good health Mother Family history of malignant neoplasm of breast in first degree relative Father Family history of coronary artery disease Social History Social History Social History: Surrogate medical decision maker: Emilia Pedraza, daughter. Code status: Full code. She would not want to be on life support longer than 2.5 days. Smoking packs per day: 0.5 Smoking cigarettes per day: 10.0 Years smoked: 64 Smoking pack-years: 32.00 Smoking status: Current every day smoker Alcohol intake: never Lack of Transportation: No Lack of Food: Often True Current Housing: I Have Housing Concerned About Future Housing: No Difficulty Paying Gas/Electric Bills: No Difficulty Paying for Meds: No Currently Unemployed: No Education: Associate Degree Difficulty w/ Childcare or Family Care: No Additional living arrangements comments: as of January 2022. Lives alone in [place] with her dog. Spiritual care concerns: No Comments At time of signature, agree with nursing past medical, surgical, social and family history. There is no relevant family history pertinent to the presenting complaint Exam Narrative: GENERAL: Well-appearing, well-nourished, and in no acute distress. HEAD: Normocephalic, atraumatic. EYES: PERRLA, conjunctivae clear NECK: Supple. CHEST: Speaks in full sentences. No respiratory distress. HEART: Regular rate and rhythm. Normal and equal peripheral pulses. EXTREMITIES: Left ankle, foot, digits have grossly normal strength and sensation, normal range of motion. Moderate dorsal edema, mild dorsal ecchymosis. 5/5 strength with ankle in digit flexion and extension. Normal sensation with sensitivity to light touch and pain. Dorsal foot lateral ankle tenderness. No open wounds, no skin tenting, no devitalized tissue or atrophy, no trophic changes, no obvious deformity, alignment normal, nearby joints and structure
== END 2022-07-25 16:12 | disposition home or self-care (01) ==
PROVIDERS: Emergency Provider Nurse Practitioner; PCP Internal Medicine
DX: S90.02XA Contusion of left ankle, initial encounter (principal); W01.0XXA Fall on same level from slipping, tripping and stumbling without subsequent striking against object, initial encounter; I25.10 Atherosclerotic heart disease of native coronary artery without angina pectoris; E78.5 Hyperlipidemia, unspecified; I10 Essential (primary) hypertension; E03.9 Hypothyroidism, unspecified; E55.9 Vitamin D deficiency, unspecified
CPT/HCPCS: 73610; 73630; 99213; G0463

== ENCOUNTER 2023-01-17 15:30 | Inpatient (IN) | payer MEDICARE, OTHER, SELFPAY ==
--- NOTE | ~2023-01-17 | XR_ITS ---
EXAMINATION: XR chest 1V portable INDICATION: Cough and fever TECHNIQUE: Portable AP chest at 1604 hours COMPARISON: 05/20/2022 FINDINGS: There is scarring of the lung apices. The lungs are free of acute opacities. No pleural eff usion or pneumothorax. The cardiomediastinal silhouette is normal. IMPRESSION: 1. No acute cardiopulmonary abnormality. Reviewed, dictated and finalized at location F.
[2023-01-17 15:37] VITALS: BP 107/67; PULSE 112; RESP 17; TEMP 36.9; O2SAT 96
[2023-01-17 15:49] VITALS: TEMP 37.7
[2023-01-17 16:14] LABS: Appearance Urine Cloudy (Clear); Bacteria Urine 4+ /hpf; Bilirubin Urine Negative (Negative); Blood Urine Negative (Negative); Color Urine Dark Yellow (Yellow); Glucose Urine UA Negative (Negative); Ketones Urine Negative (Negative); Leukocyte Esterase Ur Negative LEU/UL (Negative); Nitrate Urine Negative (Negative); Non Pathogenic Casts 0-2; Protein Urine Trace mg/dL (Negative); RBC Urine 0-2 /hpf (0-2); Specific Grav Ur 1.002 (1.001-1.035); Squamous Epithelial Cell Urine None seen /hpf (Few); WBC Urine 0-5 /hpf; pH Urine 5.5 (5.0-9.0)
[2023-01-17 16:15] LABS: Add Urine Microscopic? YES
[2023-01-17 16:27] LABS: Basophils Absolute Auto 0.1 K/mm3 (0.0-0.1); Basophils Percent Auto 0.7 % (0.2-1.2); Eosinophils Absolute Auto 0.1 K/mm3 (0-0.3); Hematocrit 41.4 % (37.0-47.0); Hemoglobin 13.4 g/dL (12.0-15.0); Immature Granulocyte Absolute 0.02 K/mm3 (0.00-0.031); Immature Granulocyte Percent A 0.3 % (0-0.5); Lymphocytes Absolute Auto 1.66 K/mm3 (0.9-3.2); Lymphocytes Percent Auto 23.8 % (18.3-44.2); Mean Corpuscular HGB Conc 32.4 g/dl (32-36); Mean Corpuscular Hemoglobin 28.8 pg (26-34); Mean Corpuscular Volume 88.8 fl (80-100); Mean Platelet Volume 11.9 fl (7.4-10.4); Monocytes Absolute Auto 0.7 K/mm3 (0.1-0.6); Monocytes Percent Auto 10.6 % (2.6-8.5); Neutrophils Absolute Auto 4.4 K/mm3 (1.3-6.7); Neutrophils Percent Auto 63.6 % (45.5-73.1); Platelet Count Result 231 k/mm3 (150-375); Red Blood Count 4.66 M/mm3 (4.2-5.4); Red Cell Distribution Width 13.2 % (11.5-14.5)
[2023-01-17 16:37] LABS: Prothrombin Time 13.1 Seconds (11.1-14.7)
[2023-01-17 16:38] LABS: Partial Thromboplastin Time 36.5 SECONDS (22.3-36.8)
[2023-01-17 16:39] LABS: Lactic Acid Reflex 2.1 mmol/L (0.7-2.0)
[2023-01-17 16:44] LABS: Alanine Aminotransferase 21 U/L (6-35); Albumin Level 4.1 g/dL (3.5-5.1); Alkaline Phosphatase 113 U/L (38-126); Anion Gap 8 mmol/L (8-16); Aspartate Amino Transferase 29 U/L (14-36); Bilirubin,Total 1.4 mg/dL (0.2-1.3); Blood Urea Nitrogen 20 mg/dL (7-17); CRP < 0.5 mg/dL (<1.0); Calcium 9.3 mg/dL (8.4-10.2); Carbon Dioxide 25 mmol/L (22-30); Chloride 103 mmol/L (98-107); Estimated CRCL calculation 36 ml/min; Estimated Glomerular Filt Rate 60; Glucose 146 mg/dL (65-110); Potassium 3.7 mmol/L (3.4-5.0); Sodium 136 mmol/L (137-145)
[2023-01-17 16:55] VITALS: BP 136/75; PULSE 108; RESP 18; TEMP 37.2; O2SAT 95
[2023-01-17 17:03] LABS: Influenza A QL RT-PCR Negative (Negative); Influenza B QL RT-PCR Negative (Negative); SARS-CoV-2 RNA PCR Negative (Negative)
--- NOTE | 2023-01-17 17:20 | ECG_ITS ---
Measurements Intervals [place] Rate: 91 P: 73 IA: 160 QRS: -1 QRSD: 82 T: 45 QT: 330 QTc: 408 Interpretive Statements SINUS RHYTHM POSSIBLE LEFT ATRIAL ENLARGEMENT BASELINE ARTIFACT- I, II, III, AVR, AVL, AVF BORDERLINE ECG COMPARED TO ECG 05/20/2022 11:22:47 NO SIGNIFICANT CHANGES Electronically Signed On 01-17-2023 20:11:40 CDT by Uli Mesa D.O.
--- NOTE | 2023-01-17 17:21 | ED.FEVER ---
HPI - Fever General Chief Complaint: Fever Stated Complaint: weak, shakey Time Seen by Provider: 01/17/23 17:04 History of Present Illness HPI Narrative: 83-year-old female presents with her son and daughter at bedside for generalized weakness for the past few weeks, worsening over the past week. Per the patient, she has felt weak and shaky for the past week and has had difficulty ambulating around her house due to an unsteady gait. She states her daughter who lives in [place] called her and the patient did not answer, therefore the daughter called the police and sent the police to the patient's house. Patient states she got up to answer the door, however was too weak to step off the porch, therefore the police called EMS and she was transferred to the emergency department. Per the patient's children at bedside, the patient has been reporting she does not feel well the past few weeks including complaints of nasal congestion, generalized weakness and malaise. They also reports she has had decreased p.o. intake the past few weeks. The patient lives at home alone. She reports urinary frequency and urgency that is unchanged from her baseline. She denies fever, body aches, chills, cough, headache, neck pain, sore throat, otalgia, chest pain or shortness of breath, abdominal pain, nausea, vomiting, diarrhea, vision changes, focal numbness or weakness, dysuria or hematuria. Related Data Home Medications Medication Instructions Recorded Confirmed aspirin 325 mg tablet 325 mg PO DAILY 12/02/19 05/20/22 cholecalciferol (vitamin D3) 25 25 mcg PO DAILY 12/02/19 05/20/22 mcg (1,000 unit) tablet Allergies Allergy/AdvReac Type Severity Reaction Status Date / Time amoxicillin Allergy Mild RASH Verified 01/17/23 15:47 Penicillins Allergy Mild hives Verified 01/17/23 15:47 Review of Systems Review of Systems: CONSTITUTIONAL: Denies fever, chills EYES: Denies visual changes, redness, or discharge. ENT: See HPI CARDIOVASCULAR: Denies chest pain, palpitations, or edema. RESPIRATORY: Denies cough or dyspnea. GASTROINTESTINAL: Denies abdominal pain, nausea, vomiting, or diarrhea. GENITOURINARY: Denies dysuria or hematuria. SKIN: Denies rash or itching. MUSCULOSKELETAL: Denies back pain, joint pain, or myalgia. NEUROLOGIC: See HPI PSYCHIATRIC: Denies anxiety or depression. [facility] Past Medical History Medical History Coronary artery disease Dyslipidemia Hypertension Hypothyroidism Vitamin D deficiency Surgical History Surgical History History of appendectomy History of arthroscopic knee surgery History of heart artery stent Family History Family History Sibling Patient's sister is in good health Mother Family history of malignant neoplasm of breast in first degree relative Father Family history of coronary artery disease Social History Social History Social History: Surrogate medical decision maker: Emilia Pedraza, daughter. Code status: Full code. She would not want to be on life support longer than 2.5 days. Smoking packs per day: 0.5 Smoking cigarettes per day: 10.0 Years smoked: 64 Smoking pack-years: 32.00 Smoking status: Current every day smoker Alcohol intake: never Substance use: never Lack of Transportation: No Lack of Food: Never True Current Housing: I Have Housing Concerned About Future Housing: No Difficulty Paying Gas/Electric Bills: No Difficulty Paying for Meds: No Currently Unemployed: No Education: Bachelor's Degree Difficulty w/ Childcare or Family Care: No Additional living arrangements comments: as of January 2022. Lives alone in [place] with her dog. Spiritual care concerns: No Exam Narrative: GENERAL: Well-
[2023-01-17] MEDS: SODIUM CHLORIDE 0.9% IV 1,000 ML 999 ML IV CONT (17:30)
[2023-01-17 17:40] LABS: Lipase 211 U/L (23-300)
[2023-01-17 17:53] LABS: Troponin I < 0.012 ng/mL (0.000-0.034)
[2023-01-17 18:41] VITALS: BP 126/88; PULSE 87; RESP 17; TEMP 36.9; O2SAT 97
[2023-01-17 18:46] LABS: Thyroid Stimulating Hormone Reflex 0.035 uIU/mL (0.465-4.68)
[2023-01-17 19:15] LABS: Free T4 Free Thyroxine Reflex 2.11 ng/dL (0.78-2.19)
[2023-01-17 19:18] LABS: Reflex Lactic Acid Yes or No Add Lactic
--- NOTE | 2023-01-17 19:19 | PC.NURSE ---
Assumed care of pt. Pt states feeling better. Pt afebrile
[2023-01-17 19:20] VITALS: BP 137/81; PULSE 88; RESP 18; TEMP 36.9; O2SAT 97
--- NOTE | 2023-01-17 19:41 | PC.NURSE ---
[place], pretzel & glass of water given to pt.
--- NOTE | 2023-01-17 20:40 | ADMGEN ---
This patient, Kandi Lewis, was admitted to Medical Room 243-01. Patient/family oriented to hospital policies and general routines including ID bracelet, bed and alarms, visiting hours, pain management, procedures, bathroom and other care routines, personal items, smoking policy, room service/diet, and visiting hours. Information on how to activate the Rapid Response Team has been discussed. Patient/Family are encouraged to report perceived risks to care and to ask questions if they do not understand what they are told or what they should do.
[2023-01-17 20:43] LABS: Total Triiodothyronine (T3) 1.23 NG/ML (0.97-1.69)
[2023-01-17 20:54] VITALS: BP 142/73; PULSE 85; RESP 16; TEMP 36.7; O2SAT 97
--- NOTE | 2023-01-17 21:21 | PM.IMHP ---
H&P: HPI History of Present Illness Date/Time: 01/17/23 21:21 Chief Complaint: Patient was brought to the ER for evaluation by EMS with complains of weakness which is getting worse over the last week Narrative: Our patient is a very pleasant 83 years old white female who appears much younger than her stated age. She is feeling weak tired and fatigued which is getting worse over the last week. Her daughter is an ER physician in [place] who called her and she did not answer, so her daughter got concerned and called the police who went to her house. S was able to answer the door, but she was too weak to step off the porch. Police called EMS who brought patient to the ER for evaluation. Patient also complains of decreased p.o. intake over the last few weeks. She lives alone at home. Workup done in the ER which showed UTI. She was given IV hydration, started on IV antibiotics and is being admitted for medical management and close monitoring. Review of Systems Review of Systems: he denies any chest pain, palpitations, fever rigor chills, nausea vomiting or abdominal pain. All systems reviewed & are unremarkable except as noted in HPI and below PMFSH Past Medical History Medical History Coronary artery disease Dyslipidemia Hypertension Hypothyroidism Vitamin D deficiency Surgical History Surgical History History of appendectomy History of arthroscopic knee surgery History of heart artery stent Family History Family History Sibling Patient's sister is in good health Mother Family history of malignant neoplasm of breast in first degree relative Father Family history of coronary artery disease Social History Social History Social History: Surrogate medical decision maker: Emilia Pedraza, daughter. Code status: Full code. She would not want to be on life support longer than 2.5 days. Smoking packs per day: 1 Smoking cigarettes per day: 20.0 Years smoked: 64 Smoking pack-years: 64.00 Smoking status: Current every day smoker Tobacco type: cigarettes Alcohol intake: never Substance use: never Substance use type: does not use Lack of Transportation: No Lack of Food: Never True Current Housing: I Have Housing Concerned About Future Housing: No Difficulty Paying Gas/Electric Bills: No Difficulty Paying for Meds: No Currently Unemployed: No Education: Associate Degree Difficulty w/ Childcare or Family Care: No Additional living arrangements comments: as of January 2022. Lives alone in [place] with her dog. Spiritual care concerns: No Meds Home Medications and Allergies Home Medications Medication Instructions Recorded Confirmed Type aspirin 325 mg tablet 325 mg PO DAILY 12/02/19 01/17/23 History cholecalciferol (vitamin D3) 25 25 mcg PO DAILY 12/02/19 01/17/23 History mcg (1,000 unit) tablet hydralazine 50 mg tablet 100 mg PO BID #360 tabs 08/22/22 01/17/23 Rx lisinopril 40 mg tablet 40 mg PO DAILY #90 tabs 11/04/22 01/17/23 Rx ezetimibe 10 mg tablet 10 mg PO HS #90 tabs 11/15/22 01/17/23 Rx levothyroxine 75 mcg tablet 75 mcg PO DAILY #90 tabs 11/24/22 01/17/23 Rx atorvastatin 80 mg tablet 80 mg PO HS 01/17/23 01/17/23 History metoprolol succinate 25 mg 25 mg PO DAILY 01/17/23 01/17/23 History tablet,extended release 24 hr (Toprol XL) Allergies Allergy/AdvReac Type Severity Reaction Status Date / Time amoxicillin Allergy Mild RASH Verified 01/17/23 15:47 Penicillins Allergy Mild hives Verified 01/17/23 15:47 Vital Signs Vital Signs - 24 hr 01/17/23 15:37 01/17/23 15:49 01/17/23 16:55 Temperature 36.9 C 37.7 C H 37.2 C Pulse Rate 112 H 108 H Respiratory Rate 17 18 Blood Pressure 107/67 136/75 Pulse Oximetry 96 95 Oxygen Delivery Ro
[2023-01-17] MEDS: EZETIMIBE 10 MG TABLET PO (22:15)
[2023-01-17] MEDS: ATORVASTATIN 40 MG TABLET 80 MG PO (22:15)
[2023-01-17] MEDS: KCL 20 MEQ/D5/0.45% SOD CHL 1,000 ML 75 ML IV CONT (22:15)
[2023-01-17 22:20] LABS: Lactic Acid 1.6 mmol/L (0.7-2.0)
[2023-01-18] VITALS (7 sets, daily range): BP systolic 100–117; BP diastolic 52–60; PULSE 65–95; RESP 16; TEMP 36.4; O2SAT 95–99
[2023-01-18 05:54] LABS: Basophils Absolute Auto 0.1 K/mm3 (0.0-0.1); Eosinophils Absolute Auto 0.1 K/mm3 (0-0.3); Eosinophils Percent Auto 2.4 % (0-4.4); Hematocrit 32.8 % (37.0-47.0); Hemoglobin 10.5 g/dL (12.0-15.0); Immature Granulocyte Absolute 0.01 K/mm3 (0.00-0.031); Immature Granulocyte Percent A 0.2 % (0-0.5); Lymphocytes Absolute Auto 1.94 K/mm3 (0.9-3.2); Lymphocytes Percent Auto 38.4 % (18.3-44.2); Mean Corpuscular Volume 90.6 fl (80-100); Mean Platelet Volume 11.8 fl (7.4-10.4); Monocytes Absolute Auto 0.6 K/mm3 (0.1-0.6); Monocytes Percent Auto 12.1 % (2.6-8.5); Neutrophils Absolute Auto 2.3 K/mm3 (1.3-6.7); Neutrophils Percent Auto 45.9 % (45.5-73.1); Platelet Count Result 180 k/mm3 (150-375); Red Blood Count 3.62 M/mm3 (4.2-5.4); Red Cell Distribution Width 13.2 % (11.5-14.5); White Blood Count 5.1 K/mm3 (4.5-10.0)
[2023-01-18 05:56] LABS: Anion Gap 2 mmol/L (8-16); Blood Urea Nitrogen 15 mg/dL (7-17); Calcium 8.6 mg/dL (8.4-10.2); Carbon Dioxide 26 mmol/L (22-30); Chloride 107 mmol/L (98-107); Estimated CRCL calculation 40 ml/min; Estimated Glomerular Filt Rate > 60; Glucose 102 mg/dL (65-110); Phosphorus 3.3 mg/dL (2.5-4.5); Potassium 3.6 mmol/L (3.4-5.0); Sodium 135 mmol/L (137-145)
[2023-01-18] MEDS: LEVOTHYROXINE SODIUM 75 MCG TABLET PO (06:13)
[2023-01-18 06:30] LABS: Thyroid Stimulating Hormone Reflex 0.081 uIU/mL (0.465-4.68)
[2023-01-18] MEDS: METOPROLOL SUCCINATE EXT REL 25 MG TABCR PO (09:03)
[2023-01-18] MEDS: ASPIRIN 325 MG TABLET PO (09:03)
[2023-01-18] MEDS: lisinopriL 20 MG TABLET 40 MG PO (09:03)
[2023-01-18] MEDS: hydrALAZINE HCL 50 MG TABLET 100 MG PO ×2 (09:03→17:24)
[2023-01-18] MEDS: CHOLECALCIFEROL 1,000 UNITS TABLET 1000 UNITS PO (09:03)
[2023-01-18] MEDS: ENOXAPARIN 40 MG/0.4 ML SYRINGE SUB-Q (09:09)
--- NOTE | 2023-01-18 12:03 | PM.IMPN ---
Progress Note: A&P Assessment and Plan (1) UTI (urinary tract infection): Qualifiers: Hematuria presence: without hematuria Urinary tract infection type: acute cystitis Qualified Code(s): N30.00 - Acute cystitis without hematuria Code(s): N39.0 - Urinary tract infection, site not specified Status: Acute Assessment and Plan: UA suspicious for infection. Patient started on Rocephin. Urine culture pending. Blood culture pending Adjust antibiotics to culture results. (2) Generalized weakness: Code(s): R53.1 - Weakness Status: Acute Assessment and Plan: PT and OT evaluation. (3) Hypothyroidism: Code(s): E03.9 - Hypothyroidism, unspecified Status: Acute Assessment and Plan: Continue Synthroid. (4) Hypertension: Code(s): I10 - Essential (primary) hypertension Status: Acute Assessment and Plan: Continue metoprolol and lisinopril (5) Dyslipidemia: Code(s): E78.5 - Hyperlipidemia, unspecified Status: Acute Assessment and Plan: Continue atorvastatin. Subjective Date/time seen: 01/18/23 12:03 Interval history: Patient doing well today very eager for discharge. Discussed the plan with the patient including waiting for urine cultures to return and sensitivities. Patient did have a significant amount of weakness leading up to her hospitalization thus PT and OT will evaluate her. She denies any abdominal pain, nausea, vomiting, chest pain, shortness a breath and dizziness. Exam Narrative: GENERAL: Comfortable, no acute distress HENMT: moist mucous membranes EYES: EOM intact b/l NECK: no lymphadenopathy RESPIRATORY: clear to auscultation CARDIO: RRR GI: soft, nontender, bowel sounds present SKIN: no rashes EXTREMITIES: no edema, redness or tenderness Objective Data Vital Signs Vital Signs: Vital Signs - 24 hr 01/17/23 15:37 01/17/23 15:49 01/17/23 16:55 Temperature 98.4 F 99.9 F H 99.0 F Pulse Rate 112 H 108 H Respiratory Rate 17 18 Blood Pressure 107/67 136/75 Pulse Oximetry 96 95 Oxygen Delivery Room Air 01/17/23 18:41 01/17/23 19:20 01/17/23 20:54 Temperature 98.4 F 98.4 F 98.1 F Pulse Rate 87 88 85 Respiratory Rate 17 18 16 Blood Pressure 126/88 137/81 142/73 H Pulse Oximetry 97 97 97 Oxygen Delivery 01/17/23 21:21 01/18/23 04:00 01/18/23 09:03 Temperature 97.6 F Pulse Rate 67 95 Respiratory Rate 16 Blood Pressure 117/52 L Pulse Oximetry 95 Oxygen Delivery Room Air 01/18/23 10:19 01/18/23 10:19 Temperature Pulse Rate Respiratory Rate Blood Pressure Pulse Oximetry 95 Oxygen Delivery Room Air Room Air Intake/Output Intake/Output: Intake & Output 01/15/23 01/16/23 01/17/23 01/18/23 23:59 23:59 23:59 23:59 Intake Total 1050 200 Output Total 200 Balance 850 200 Meds/Results Medications: Active Medications Generic Name Dose Route Start Last Admin Trade Name Freq PRN Reason Stop Dose Admin Acetaminophen 650 mg 01/17/23 21:37 Acetaminophen 325 Mg Tablet PO Q4H PRN Mild Pain (1-3) or Fever Al Hydrox/Mg Hydrox/Simethicone 30 ml 01/17/23 21:37 Mag Hydrox/Al Hydrox/Simeth 30 Ml Udc PO QID PRN Dyspepsia Aspirin 325 mg 01/18/23 09:00 01/18/23 09:03 Aspirin 325 Mg Tablet PO 325 mg DAILY FORTINO Administration Atorvastatin Calcium 80 mg 01/17/23 21:55 01/17/23 22:15 Atorvastatin 40 Mg Tablet PO 80 mg HS FORTINO Administration Ezetimibe 10 mg 01/17/23 21:55 01/17/23 22:15 Ezetimibe 10 Mg Tablet PO 10 mg HS FORTINO Administration Enoxaparin Sodium 40 mg 01/18/23 09:00 01/18/23 09:09 Enoxaparin 40 Mg/0.4 Ml Syringe SUB-Q 40 mg DAILY FORTINO Administration Hydralazine HCl 100 mg 01/18/23 09:00 01/18/23 09:03 Hydralazine Hcl 50 Mg Tablet PO 100 mg BID FORTINO Administration Ceftriaxone Sodium 1
[2023-01-18] MEDS: KCL 20 MEQ/D5/0.45% SOD CHL 1,000 ML 75 ML IV CONT (13:13)
[2023-01-18] MEDS: EZETIMIBE 10 MG TABLET PO (21:16)
[2023-01-18] MEDS: ATORVASTATIN 40 MG TABLET 80 MG PO (21:16)
[2023-01-19] MEDS: KCL 20 MEQ/D5/0.45% SOD CHL 1,000 ML 75 ML IV CONT (04:03)
[2023-01-19 04:12] VITALS: BP 116/58; PULSE 64; RESP 16; TEMP 36.6; O2SAT 95
[2023-01-19 05:41] LABS: Basophils Percent Auto 0.8 % (0.2-1.2); Eosinophils Absolute Auto 0.2 K/mm3 (0-0.3); Eosinophils Percent Auto 3.4 % (0-4.4); Hematocrit 32.2 % (37.0-47.0); Hemoglobin 10.4 g/dL (12.0-15.0); Immature Granulocyte Absolute 0.02 K/mm3 (0.00-0.031); Immature Granulocyte Percent A 0.4 % (0-0.5); Lymphocytes Absolute Auto 1.73 K/mm3 (0.9-3.2); Lymphocytes Percent Auto 34.6 % (18.3-44.2); Mean Corpuscular HGB Conc 32.3 g/dl (32-36); Mean Corpuscular Volume 89.7 fl (80-100); Mean Platelet Volume 11.6 fl (7.4-10.4); Monocytes Absolute Auto 0.6 K/mm3 (0.1-0.6); Neutrophils Absolute Auto 2.5 K/mm3 (1.3-6.7); Neutrophils Percent Auto 49.8 % (45.5-73.1); Platelet Count Result 170 k/mm3 (150-375); Red Blood Count 3.59 M/mm3 (4.2-5.4); Red Cell Distribution Width 13.2 % (11.5-14.5)
[2023-01-19 05:53] LABS: Anion Gap 3 mmol/L (8-16); Blood Urea Nitrogen 10 mg/dL (7-17); Calcium 8.7 mg/dL (8.4-10.2); Carbon Dioxide 24 mmol/L (22-30); Chloride 110 mmol/L (98-107); Estimated CRCL calculation 40 ml/min; Estimated Glomerular Filt Rate > 60; Glucose 102 mg/dL (65-110); Potassium 3.6 mmol/L (3.4-5.0); Sodium 137 mmol/L (137-145)
[2023-01-19] MEDS: LEVOTHYROXINE SODIUM 75 MCG TABLET PO (06:13)
[2023-01-19 08:00] VITALS: PULSE 80; RESP 16; O2SAT 95
[2023-01-19 08:41] VITALS: PULSE 80
[2023-01-19] MEDS: ASPIRIN 325 MG TABLET PO (08:41)
[2023-01-19] MEDS: lisinopriL 20 MG TABLET 40 MG PO (08:41)
[2023-01-19] MEDS: hydrALAZINE HCL 50 MG TABLET 100 MG PO (08:41)
[2023-01-19] MEDS: METOPROLOL SUCCINATE EXT REL 25 MG TABCR PO (08:41)
[2023-01-19] MEDS: CHOLECALCIFEROL 1,000 UNITS TABLET 1000 UNITS PO (08:42)
--- NOTE | 2023-01-19 12:07 | PM.DS ---
DS: Admitting Diagnosis Discharge Date 01/19/23 Admitting Diagnosis UTI DS: Discharge Diagnosis Discharge Diagnosis (1) UTI (urinary tract infection): Qualifiers: Hematuria presence: without hematuria Urinary tract infection type: acute cystitis Qualified Code(s): N30.00 - Acute cystitis without hematuria Code(s): N39.0 - Urinary tract infection, site not specified Status: Acute (2) Generalized weakness: Code(s): R53.1 - Weakness Status: Acute (3) Hypothyroidism: Code(s): E03.9 - Hypothyroidism, unspecified Status: Acute (4) Hypertension: Code(s): I10 - Essential (primary) hypertension Status: Acute (5) Dyslipidemia: Code(s): E78.5 - Hyperlipidemia, unspecified Status: Acute DS: Summary Hospital Course Hospital Course: this is a 83-year-old female with a past medical history of hypertension, hypothyroidism and hyperlipidemia the presented to the ED due to weakness. She was found to have a UA suspicious for infection she was started on ceftriaxone. She also experience weakness was evaluated by PT and OT. Urine culture came back with no growth. Received 3 doses of ceftriaxone. Her labs and vital signs are stable she is medically cleared for discharge. Time Spent with Patient Time attestation: Total time spent providing and/or coordinating discharge services: Exam Narrative: GENERAL: Comfortable, no acute distress HENMT: moist mucous membranes EYES: EOM intact b/l NECK: no lymphadenopathy RESPIRATORY: clear to auscultation CARDIO: RRR GI: soft, nontender, bowel sounds present SKIN: no rashes EXTREMITIES: no edema, redness or tenderness DS: Data Data Completed and Pending Labs on day of discharge: Labs from last 24 hours 01/19/23 05:06 WBC 5.0 RBC 3.59 L Hgb 10.4 L Hct 32.2 L MCV 89.7 MCH 29.0 MCHC 32.3 RDW 13.2 Plt Count 170 MPV 11.6 H Immature Gran % (Auto) 0.4 Neut % (Auto) 49.8 Lymph % (Auto) 34.6 [place] % (Auto) 11.0 H Eos % (Auto) 3.4 Baso % (Auto) 0.8 Lymph # (Auto) 1.73 [place] # (Auto) 0.6 Eos # (Auto) 0.2 Baso # (Auto) 0.0 Abs Immat Gran (auto) 0.02 Absolute Neuts (auto) 2.5 Absolute Nucleated RBC 0.0 Nucleated RBC % 0.0 Sodium 137 Potassium 3.6 Chloride 110 H Carbon Dioxide 24 Anion Gap 3 L BUN 10 D Creatinine 0.80 Estim Creat Clear Calc 40 Estimated GFR > 60 Glucose 102 Calcium 8.7 Preliminary micro results at discharge 01/17/23 16:09 Blood Culture - Preliminary Blood 01/17/23 16:10 Blood Culture - Preliminary Blood Discharge Plan Discharge Attending physician on discharge: Jarred Dietrich Discharging Clinician: Maria Elena Calvillo Patient Disposition: Home, Self-Care Activity: as tolerated Diet: regular Discharge Instructions: Take all medications as prescribed even if feeling better Eat well balanced meals and stay hydrated Keep active to remain strong Avoid use of diapers or pads Good maged Care every 2 hours Frequent toileting every 2 hours Trend urine output If you should experience any chest pain, shortness of breath, temps >100.4 or any other worrisome symptoms please follow up with your PCP come back to the hospital Follow up with your primary in 2-3 weeks It has been a pleasure taking care of you thank you for using our services Patient Instructions: Antibiotic Form, How to Stop Smoking (DC) Stand Alone Forms: General Discharge Information Follow-up/Referrals: Dominic Wilder MD [Primary Care Provider] - Discharge Medications: Continued aspirin 325 mg tablet 325 mg PO DAILY cholecalciferol (vitamin D3) 25 mcg (1,000 unit) tablet 25 mcg PO DAILY atorvastatin 80 mg tablet 80 mg PO HS metoprolol succinate [Toprol XL] 25 mg tablet extended release 24 hr 25 mg PO DAILY hydralazine 50 mg tablet 100 mg PO BID Qty: 360 3RF lisinopril 40 mg tablet 40 mg PO
== END 2023-01-19 14:23 | disposition home or self-care (01) | DRG 690 ==
LOC: ANHED 19:46 → ANH2MED 20:05
PROVIDERS: Emergency Medicine; Admitting Provider Family Medicine; Emergency Provider Physician Assistant; PCP Family Medicine; Visit Provider Internal Medicine Critical Care Medicine
DX: N30.00 Acute cystitis without hematuria (principal); E78.5 Hyperlipidemia, unspecified; E55.9 Vitamin D deficiency, unspecified; E03.9 Hypothyroidism, unspecified; E06.3 Autoimmune thyroiditis; F17.210 Nicotine dependence, cigarettes, uncomplicated; I10 Essential (primary) hypertension; I25.10 Atherosclerotic heart disease of native coronary artery without angina pectoris; Z90.49 Acquired absence of other specified parts of digestive tract; Z95.5 Presence of coronary angioplasty implant and graft; Z20.822 Contact with and (suspected) exposure to COVID-19; Z79.82 Long term (current) use of aspirin
CPT/HCPCS: 36415; 71045; 80048; 80053; 81001; 83605; 83690; 83735; 84100; 84439; 84443; 84480; 84484; 85025; 85610; 85730; 86140; 87040; 87086; 87636; 93005; 96360; 97161; 97165; 97530; 99285; A9270; J0696; J1650; J3480; J7030

== ENCOUNTER 2024-05-10 16:50 | Emergency (ER) | payer MEDICARE, OTHER, SELFPAY ==
--- NOTE | ~2024-05-10 | XR_ITS ---
CHEST RADIOGRAPH, PA AND LATERAL CLINICAL HISTORY: increased heartrate . COMPARISON: 01/17/2023 TECHNIQUE: PA and lateral views of the chest. FINDINGS Cardiomediastinal silhouette is unremarkable. The left hemithorax is clear. Increased opacification within the right middle lobe for which an early infiltrate is suspected. IMPRESSION: Possible early infiltrate within the right middle lobe, for which clinical correlation is needed. Reviewed, dictated and finalized at location A. FRAME ARCHITECT IMPRESSION: Possible early infiltrate within the right middle lobe, for which clinical yosi elation is needed.
--- NOTE | 2024-05-10 17:10 | ECG_ITS ---
Test Date: 2024-05-10 20:59:26 Measurements Intervals [place] Rate: 91 P: 70 KS: 157 QRS: 23 QRSD: 86 T: 66 QT: 332 QTc: 410 Interpretive Statements SINUS RHYTHM No previous ECG available for comparison Electronically Signed On 05-11-2024 10:41:47 POKE IN by Gideon Hannon M.D.
--- NOTE | 2024-05-10 17:17 | ED.WEAKNESS ---
HPI - Weakness General Chief complaint: Weakness <Suzanne Gonzalez SERVICE WORKER HELPER - Last Filed: 05/10/24 17:21> Stated complaint: weak, shakey, being tx'd for a UTI <Suzanne Gonzalez APRN - Last Filed: 05/10/24 17:21> Time Seen by Provider: 05/10/24 17:00 <Suzanne Gonzalez SERVICE WORKER HELPER - Last Filed: 05/10/24 17:21> Focused HPI: Patient is an 84-year-old female who presents to the ER with increased weakness. She was diagnosed with a urinary tract infection on and has been taking medications since then, but today she started ?shaking,? and experiencing increased full body weakness. Patient has had decreased p.o. intake and has an increased heart rate. She endorses a history of hyperthyroidism and high blood pressure. Patient denies any chest pain, abdominal pain, recent fevers. GENERAL: Well-appearing, poorly-nourished, and in no acute distress. HEAD: Normocephalic, atraumatic. CHEST: Clear to auscultation. ?No respiratory distress. HEART: Tachycardia, regular rhythm.? NEURO: ?Alert and oriented x3. Patient screened in triage and initial orders placed.? ?Additional care and disposition to be based upon?diagnostic testing and treatment. <Suzanne Gonzalez SERVICE WORKER HELPER - Last Filed: 05/10/24 17:21> Focused HPI: Patient is an 84-year-old female who presents to the ER with increased weakness. She was diagnosed with a urinary tract infection on and has been taking medications since then, but today she started ?shaking,? and experiencing increased full body weakness. Patient has had decreased p.o. intake and has an increased heart rate. She endorses a history of hyperthyroidism and high blood pressure. Patient denies any chest pain, abdominal pain, recent fevers. GENERAL: Well-appearing, poorly-nourished, and in no acute distress. HEAD: Normocephalic, atraumatic. CHEST: Clear to auscultation. ?No respiratory distress. HEART: Tachycardia, regular rhythm.? NEURO: ?Alert and oriented x3. Patient screened in triage and initial orders placed.? ?Additional care and disposition to be based upon?diagnostic testing and treatment. Agree with triage assessment, patient denies any chest pain or shortness of breath, any nausea, vomiting or abdominal pain and denies any recent URI illness. Denies any fevers or chills at home. <Josefina Mondragon MD - Last Filed: 05/10/24 23:43> Related Data Home medications: Home Medications ?Medication ?Instructions ?Recorded ?Confirmed ?Last Taken ?Type aspirin 325 mg tablet 325 mg PO DAILY 12/02/19 04/04/23 Unknown History cholecalciferol (vitamin D3) 25 25 mcg PO DAILY 12/02/19 04/04/23 Unknown History mcg (1,000 unit) tablet <Suzanne Gonzalez APRN - Last Filed: 05/10/24 17:21> Allergies/Adverse reactions: Allergies Allergy/AdvReac Type Severity Reaction Status Date / Time amoxicillin Allergy Mild RASH Verified 03/17/24 08:46 Penicillins Allergy Mild hives Verified 03/17/24 08:46 <Suzanne Gonzalez APRN - Last Filed: 05/10/24 17:21> Review of Systems Review of Systems: All systems are reviewed and are negative unless stated otherwise in the HPI. <Josefina Mondragon MD - Last Filed: 05/10/24 23:43> PMFSH Past Medical History Medical History: Medical History Vitamin D deficiency Hypothyroidism Dyslipidemia Hypertension Coronary artery disease <Suzanne Gonzalez APRN - Last Filed: 05/10/24 17:21> Surgical History Surgical History: Surgical History History of appendectomy History of arthroscopic knee surgery History of heart artery stent <Suzanne Gonzalez APRN - Last Filed: 05/10/24 17:21> Family History Family History: Family History Sibling Patient's sister is in good health Mother Family history of malignant neoplasm of breast in first degree relative Father Family history of coronary artery disease <Suzanne Gonzalez APRN - Last Filed: 05/10/24 17:21> Social History Social History: Social History Social History: Surrogate medical decision maker: Emilia Pedraza, daughter. Code status: Full code. She would not want to be on life support longer than 2.5 days. Smoking packs per day: 1 Smoking cigarettes per day: 20.0 Years smoked: 64 Smoking pack-years: 64.00 Smoking status: Current every day smoker Tobacco type: cigarettes Second hand tobacco smoke exposure: No Alcohol intake: never Substance use: never Substance use type: does not use Do You Feel Safe in your Home?: Yes Lack of Transportation: No Lack of Food: Never True Current Housing: I Have Housing Concerned About Future Housing: No Difficulty Paying Gas/Electric Bills: No Difficulty Paying for Meds: No Currently Unemployed: No Education: Associate Degree Difficulty w/ Childcare or Family Care: No Living arrangements: alone Additional living arrangements comments: as of January 2022. Lives alone in [place] with her dog. Occupation/Education: retired Gender identity (if verbalized by the patient): Female Spiritual care concerns: No <Suzanne Gonzalez APRN - Last Filed: 05/10/24 17:21> Exam Narrative: General: Alert, awake, afebrile, in no acute distress. HEENT: PERRL, no rhinorrhea, no post nasal drip, oropharynx clear. Neck: Trachea midline, no JVD, no lymphadenopathy. Cardiovascular: Regular rate and rhythm, no murmurs, rubs or gallops, no peripheral edema. Respiratory: Clear to auscultation bilaterally, no tachypnea, no wheezing, no rhonchi, no rubs, no respiratory distress. Abdomen: Soft, nontender, nondistended, no rebound, no guarding, no peritoneal signs. Musculoskeletal: No joint swelling or deformity, normal muscle tone. Skin: No rashes or petechia, no signs of infection. Psychiatric: Alert and oriented, normal behavior and judgment for situation. Neurological: Alert and oriented to person, place, and time. Follows all commands. No focal deficits, speech is clear and fluent. <Josefina Mondragon MD - Last Filed: 05/10/24 23:43> Course Vital Signs Vital signs: Vital Signs Temperature 98.6 F 05/10/24 17:20 Pulse Rate 114 H 05/10/24 17:20 Respiratory Rate 19 05/10/24 17:20 Blood Pressure 124/82 05/10/24 17:20 Pulse Oximetry 96 05/10/24 17:20 Oxygen Delivery Room Air 05/10/24 17:20 Temperature 98.4 F 05/10/24 22:33 Pulse Rate 93 05/10/24 22:33 Respiratory Rate 18 05/10/24 22:33 Blood Pressure 147/60 H 05/10/24 22:33 Pulse Oximetry 96 05/10/24 22:33 Oxygen Delivery Room Air 05/10/24 17:20 <Suzanne Gonzalez APRN - Last Filed: 05/10/24 17:21> Vital Signs Temperature 98.6 F 05/10/24 17:20 Pulse Rate 114 H 05/10/24 17:20 Respiratory Rate 19 05/10/24 17:20 Blood Pressure 124/82 05/10/24 17:20 Pulse Oximetry 96 05/10/24 17:20 Oxygen Delivery Room Air 05/10/24 17:20 Temperature 98.4 F 05/10/24 22:33 Pulse Rate 93 05/10/24 22:33 Respiratory Rate 18 05/10/24 22:33 Blood Pressure 147/60 H 05/10/24 22:33 Pulse Oximetry 96 05/10/24 22:33 Oxygen Delivery Room Air 05/10/24 17:20 <Josefina Mondragon MD - Last Filed: 05/10/24 23:43> MDM - Weakness MDM Narrative Medical decision making narrative: The patient was evaluated by myself in the emergency department. History is obtained from patient who is an independent historian and physical exam was performed. External medical records were reviewed at this time. IV was established and pertinent tests were ordered. Patient was administered 1 L IV fluid bolus with normal saline. EKG was obtained which revealed sinus rhythm at a rate of 91 beats per minute, no evidence of acute ischemia. EKG was independently interpreted by me and is currently pending official cardiology read. Laboratory results obtained revealing no acute process. Viral swabs were obtained and noted to be positive for COVID. Urinalysis revealed 1+ ketones otherwise unremarkable. At this time patient was administered a 2 L IV fluid bolus with normal saline. Imaging studies obtained included CXR which was independently interpreted by me revealing a right middle lobe infiltrate otherwise no acute process, which is pending final radiology interpretation. Differential diagnosis considerations include infectious process such as pneumonia/UTI, dehydration, electrolyte derangements, acute viral syndrome. Comorbidities impacting this visit include none. I have evaluated and discussed social determinants of health with the patient that could potentially impact subsequent diagnosis and treatment plans. On repeat assessment of the patient, reevaluation revealed that the patient is doing well and is in no acute distress. Patient symptoms have improved since she arrived to our emergency department. Repeat vital signs were all reviewed and noted to be stable. Differential diagnosis and treatment plan were discussed with the patient at bedside. Patient agrees with discussion and after shared medical decision making agrees with discharge. All questions were answered to the patient's satisfaction. Patient will follow up with her PCP in 3-5 days. Script for doxycycline was sent to patient's pharmacy to take as prescribed for her pneumonia. Patient was provided with strict return precautions and instructed to return to the emergency department if any new or worsening symptoms develop. The patient was discharged in stable condition. <Josefina Mondragon MD - Last Filed: 05/10/24 23:43> Lab Data Result diagrams: 05/10/24 20:25 05/10/24 20:25 <Suzanne Gonzalez APRN - Last Filed: 05/10/24 17:21> Labs: Lab Results 05/10/24 05/10/24 05/10/24 Range/Units 19:40 20:25 22:31 WBC 10.4 H (4.5-10.0) K/mm3 RBC 4.36 (4.2-5.4) M/mm3 Hgb 12.4 (12.0-15.0) g/dL Hct 37.8 (37.0-47.0) % MCV 86.7 (80-100) fl MCH 28.4 (26-34) pg MCHC 32.8 (32-36) g/dl RDW 13.2 (11.5-14.5) % Plt Count 150 (150-375) k/mm3 MPV 11.3 H (7.4-10.4) fl Immature Gran % (Auto) 0.4 (0-0.5) % Neut % (Auto) 78.8 H (45.5-73.1) % Lymph % (Auto) 13.4 L (18.3-44.2) % [place] % (Auto) 7.2 (2.6-8.5) % Eos % (Auto) 0.0 (0-4.4) % Baso % (Auto) 0.2 (0.2-1.2) % Lymph # (Auto) 1.40 (0.9-3.2) K/mm3 [place] # (Auto) 0.8 H (0.1-0.6) K/mm3 Eos # (Auto) 0.0 (0-0.3) K/mm3 Baso # (Auto) 0.0 (0.0-0.1) K/mm3 Abs Immat Gran (auto) 0.04 H (0.00-0.031) K/mm3 Absolute Neuts (auto) 8.2 H (1.3-6.7) K/mm3 Absolute Nucleated RBC 0.000 (0.0-0.012) K/mm3 Nucleated RBC % 0.0 (0.0-0.2) % PT 14.1 (11.1-14.7) Seconds INR 1.1 APTT 37.0 H (22.3-36.8) Seconds Sodium 136 L (137-145) mmol/L Potassium 3.7 (3.4-5.0) mmol/L Chloride 104 (98-107) mmol/L Carbon Dioxide 25 (22-30) mmol/L Anion Gap 7 (4-12) mmol/L BUN 20 H D (7-17) mg/dL Creatinine 0.68 L (0.7-1.0) mg/dL Estim Creat Clear Calc 41 ml/min Estimated GFR > 60 (59 - ) Glucose 105 (65-110) mg/dL POC Capillary Glucose 116 H (65-105) mg/dl Calcium 8.4 (8.4-10.2) mg/dL Magnesium 1.8 (1.6-2.3) mg/dL Total Bilirubin 1.7 H (0.2-1.3) mg/dL AST 19 (14-36) U/L ALT 10 (6-35) U/L Alkaline Phosphatase 101 (38-126) U/L Total Creatine Kinase 52 (30-135) U/L Total Protein 7.0 (6.3-8.2) g/dL Albumin 3.4 L (3.5-5.1) g/dL Urine Color Dark yellow (Yellow) Urine Appearance Cloudy H (Clear) Urine pH 5.5 (5.0-9.0) Ur Specific [place] 1.024 (1.001-1.035) Urine Protein 1+ H (Negative) mg/dL Urine Glucose (UA) Negative (Negative) mg/dL Urine Ketones 1+ H (Negative) mg/dL Ur Blood (Man) Negative (Negative) Urine Nitrate Negative (Negative) Urine Bilirubin 1+ H (Negative) Urine Urobilinogen 1.0 (<2.0) mg/dL Add Ur Microanalysis Reviewed Leukocyte Esterase Rfl Trace H (Negative) STEF/UL Urine RBC 6-10 H (0-2) /hpf Urine WBC 0-5 (0-3) /hpf Ur Squamous Epith Cells Few (Few) /hpf Urine Bacteria 1+ H /hpf Urine Casts 6-10 Influenza A (RT-PCR) Negative (Negative) Influenza B (RT-PCR) Negative (Negative) RSV (RT-PCR) Negative (Negative) SARS-CoV-2 RNA (RT-PCR) Positive A (Negative) <Suzanne Gonzalez, SERVICE WORKER HELPER - Last Filed: 05/10/24 17:21> Lab Results 05/10/24 05/10/24 05/10/24 Range/Units 19:40 20:25 22:31 WBC 10.4 H (4.5-10.0) K/mm3 RBC 4.36 (4.2-5.4) M/mm3 Hgb 12.4 (12.0-15.0) g/dL Hct 37.8 (37.0-47.0) % MCV 86.7 (80-100) fl MCH 28.4 (26-34) pg MCHC 32.8 (32-36) g/dl RDW 13.2 (11.5-14.5) % Plt Count 150 (150-375) k/mm3 MPV 11.3 H (7.4-10.4) fl Immature Gran % (Auto) 0.4 (0-0.5) % Neut % (Auto) 78.8 H (45.5-73.1) % Lymph % (Auto) 13.4 L (18.3-44.2) % [place] % (Auto) 7.2 (2.6-8.5) % Eos % (Auto) 0.0 (0-4.4) % Baso % (Auto) 0.2 (0.2-1.2) % Lymph # (Auto) 1.40 (0.9-3.2) K/mm3 [place] # (Auto) 0.8 H (0.1-0.6) K/mm3 Eos # (Auto) 0.0 (0-0.3) K/mm3 Baso # (Auto) 0.0 (0.0-0.1) K/mm3 Abs Immat Gran (auto) 0.04 H (0.00-0.031) K/mm3 Absolute Neuts (auto) 8.2 H (1.3-6.7) K/mm3 Absolute Nucleated RBC 0.000 (0.0-0.012) K/mm3 Nucleated RBC % 0.0 (0.0-0.2) % PT 14.1 (11.1-14.7) Seconds INR 1.1 APTT 37.0 H (22.3-36.8) Seconds Sodium 136 L (137-145) mmol/L Potassium 3.7 (3.4-5.0) mmol/L Chloride 104 (98-107) mmol/L Carbon Dioxide 25 (22-30) mmol/L Anion Gap 7 (4-12) mmol/L BUN 20 H D (7-17) mg/dL Creatinine 0.68 L (0.7-1.0) mg/dL Estim Creat Clear Calc 41 ml/min Estimated GFR > 60 (59 - ) Glucose 105 (65-110) mg/dL POC Capillary Glucose 116 H (65-105) mg/dl Calcium 8.4 (8.4-10.2) mg/dL Magnesium 1.8 (1.6-2.3) mg/dL Total Bilirubin 1.7 H (0.2-1.3) mg/dL AST 19 (14-36) U/L ALT 10 (6-35) U/L Alkaline Phosphatase 101 (38-126) U/L Total Creatine Kinase 52 (30-135) U/L Total Protein 7.0 (6.3-8.2) g/dL Albumin 3.4 L (3.5-5.1) g/dL Urine Color Dark yellow (Yellow) Urine Appearance Cloudy H (Clear) Urine pH 5.5 (5.0-9.0) Ur Specific [place] 1.024 (1.001-1.035) Urine Protein 1+ H (Negative) mg/dL Urine Glucose (UA) Negative (Negative) mg/dL Urine Ketones 1+ H (Negative) mg/dL Ur Blood (Man) Negative (Negative) Urine Nitrate Negative (Negative) Urine Bilirubin 1+ H (Negative) Urine Urobilinogen 1.0 (<2.0) mg/dL Add Ur Microanalysis Reviewed Leukocyte Esterase Rfl Trace H (Negative) STEF/UL Urine RBC 6-10 H (0-2) /hpf Urine WBC 0-5 (0-3) /hpf Ur Squamous Epith Cells Few (Few) /hpf Urine Bacteria 1+ H /hpf Urine Casts 6-10 Influenza A (RT-PCR) Negative (Negative) Influenza B (RT-PCR) Negative (Negative) RSV (RT-PCR) Negative (Negative) SARS-CoV-2 RNA (RT-PCR) Positive A (Negative) <Josefina Mondragon MD - Last Filed: 05/10/24 23:43> Discharge Plan Discharge Clinical Impression: COVID-19, Pneumonia, Dehydration <INOCENCIO Bah Last Filed: 05/10/24 17:21> Patient Disposition: Home, Self-Care <Suzanne Gonzalez APRN - Last Filed: 05/10/24 17:21> Condition: Improved <Suzanne Gonzalez APRN - Last Filed: 05/10/24 17:21> Instructions: Antibiotic Form, Bacterial Pneumonia (DC), COVID-19 (Coronavirus Disease 2019) (ED) <Suzanne Gonzalez APRN - Last Filed: 05/10/24 17:21> Additional Instructions: Please follow-up with your family doctor within the next 3-5 days. Return to the emergency department if any new or worsening symptoms develop. Take the prescribed antibiotic as instructed for your pneumonia. <Suzanne Gonzalez APRN - Last Filed: 05/10/24 17:21> Patient Language: Kitt[place] <Suzanne Gonzalez APRN - Last Filed: 05/10/24 17:21> Prescriptions: New doxycycline hyclate 100 mg capsule 100 mg PO BID 7 Days Qty: 14 0RF No Action aspirin 325 mg tablet 325 mg PO DAILY cholecalciferol (vitamin D3) 25 mcg (1,000 unit) tablet 25 mcg PO DAILY ezetimibe 10 mg tablet 10 mg PO HS Qty: 90 1RF levothyroxine 75 mcg tablet 75 mcg PO DAILY Qty: 90 1RF atorvastatin 80 mg tablet 80 mg PO HS Qty: 90 1RF metoprolol succinate 25 mg tablet extended release 24 hr See Rx Instructions .ROUTE .COMPLEX Qty: 90 1RF Dose Instruction: TAKE 1 TABLET BY MOUTH DAILY Rx Instructions: TAKE 1 TABLET BY MOUTH DAILY trazodone 50 mg tablet See Rx Instructions .ROUTE .COMPLEX Qty: 90 1RF Dose Instruction: TAKE 1 TABLET BY MOUTH EVERY DAY AT BEDTIME NEEDED FOR INSOMNIA Rx Instructions: TAKE 1 TABLET BY MOUTH EVERY DAY AT BEDTIME NEEDED FOR INSOMNIA hydralazine 50 mg tablet 100 mg PO BID Qty: 360 3RF lisinopril 40 mg tablet See Rx Instructions .ROUTE .COMPLEX Qty: 30 0RF Dose Instruction: TAKE 1 TABLET BY MOUTH DAILY Rx Instructions: TAKE 1 TABLET BY MOUTH DAILY <Suzanne Gonzalez APRN - Last Filed: 05/10/24 17:21> Follow-up/Referrals: Dominic Wilder MD [Primary Care Provider] - 3 Days <Suzanne Gonzalez APRN - Last Filed: 05/10/24 17:21> Time of Disposition: 23:41 <Suzanne Gonzalez APRN - Last Filed: 05/10/24 17:21> 23:41 <Josefina Mondragon MD - Last Filed: 05/10/24 23:43>
[2024-05-10 17:20] VITALS: BP 124/82; PULSE 114; RESP 19; TEMP 37; O2SAT 96
[2024-05-10] MEDS: SODIUM CHLORIDE 0.9% IV 1,000 ML 999 ML IV CONT ×2 (19:42→21:59)
[2024-05-10 19:53] LABS: Glucose Point of Care 116 mg/dl (65-105)
[2024-05-10 20:30] LABS: Basophils Percent Auto 0.2 % (0.2-1.2); Hematocrit 37.8 % (37.0-47.0); Hemoglobin 12.4 g/dL (12.0-15.0); Immature Granulocyte Absolute 0.04 K/mm3 (0.00-0.031); Immature Granulocyte Percent A 0.4 % (0-0.5); Lymphocytes Percent Auto 13.4 % (18.3-44.2); Mean Corpuscular HGB Conc 32.8 g/dl (32-36); Mean Corpuscular Hemoglobin 28.4 pg (26-34); Mean Corpuscular Volume 86.7 fl (80-100); Mean Platelet Volume 11.3 fl (7.4-10.4); Monocytes Absolute Auto 0.8 K/mm3 (0.1-0.6); Monocytes Percent Auto 7.2 % (2.6-8.5); Neutrophils Absolute Auto 8.2 K/mm3 (1.3-6.7); Neutrophils Percent Auto 78.8 % (45.5-73.1); Platelet Count Result 150 k/mm3 (150-375); Red Blood Count 4.36 M/mm3 (4.2-5.4); Red Cell Distribution Width 13.2 % (11.5-14.5); White Blood Count 10.4 K/mm3 (4.5-10.0)
[2024-05-10 20:41] LABS: Alanine Aminotransferase 10 U/L (6-35); Albumin Level 3.4 g/dL (3.5-5.1); Alkaline Phosphatase 101 U/L (38-126); Anion Gap 7 mmol/L (4-12); Aspartate Amino Transferase 19 U/L (14-36); Bilirubin,Total 1.7 mg/dL (0.2-1.3); Blood Urea Nitrogen 20 mg/dL (7-17); Calcium 8.4 mg/dL (8.4-10.2); Carbon Dioxide 25 mmol/L (22-30); Chloride 104 mmol/L (98-107); Creatine Kinase 52 U/L (30-135); Estimated CRCL calculation 41 ml/min; Estimated Glomerular Filt Rate > 60; Glucose 105 mg/dL (65-110); INR 1.1; Magnesium 1.8 mg/dL (1.6-2.3); Potassium 3.7 mmol/L (3.4-5.0); Prothrombin Time 14.1 Seconds (11.1-14.7); Sodium 136 mmol/L (137-145)
[2024-05-10 21:06] LABS: Influenza A QL RT-PCR Negative (Negative); Influenza B QL RT-PCR Negative (Negative); RSV RNA, RT-PCR Negative (Negative); SARS-CoV-2 RNA PCR Positive (Negative)
[2024-05-10 22:33] VITALS: BP 147/60; PULSE 93; RESP 18; TEMP 36.9; O2SAT 96
[2024-05-10 23:00] LABS: Add Urine Microscopic? YES; Appearance Urine Cloudy (Clear); Bacteria Urine 1+ /hpf; Bilirubin Urine 1+ (Negative); Blood Urine Negative (Negative); Color Urine Dark Yellow (Yellow); Glucose Urine UA Negative (Negative); Ketones Urine 1+ mg/dL (Negative); Leukocyte Esterase Ur Trace LEU/UL (Negative); Need Manual Microscopic Reviewed; Nitrate Urine Negative (Negative); Protein Urine 1+ mg/dL (Negative); Specific Grav Ur 1.024 (1.001-1.035); Squamous Epithelial Cell Urine Few /hpf (Few); WBC Urine 0-5 /hpf (0-3); pH Urine 5.5 (5.0-9.0)
[2024-05-10 23:43] VITALS: RESP 18; O2SAT 98
[2024-05-10 23:44] VITALS: BP 155/63; PULSE 90; RESP 19; O2SAT 98
--- OUTSIDE RECORDS SUMMARY | 2024-05-13 14:56 | XMS_ITS | Clinical Summary ---
Author Organization [facility] [place] [address] Address [address] [place] [address] Care Team Providers Care Facilities Painter Name Role Phone Dominic Wilder MD Primary Care Provider [phone] Allergies Active Allergy Reactions Criticality Noted Date Comments Amoxicillin Anaphylaxis High 08/09/2014 Penicillins Anaphylaxis 10/19/2014 Reaction: Anaphylaxis, Medications atorvastatin (LIPITOR) 80 mg tablet TAKE 1 TAB BY MOUTH AT BEDTIME. 90 2 09/23/2014 Active ezetimibe (ZETIA) 10 mg tablet TAKE 1 TABLET DAILY 90 2 01/26/2015 Active quinapril (ACCUPRIL) 40 mg tablet TAKE 1 TABLET ONCE DAILY 90 3 01/26/2015 Active metoprolol XL (TOPROL-XL) 25 mg 24 hr tablet take 1 tablet by oral route every day 90 3 08/26/2014 Active cholecalciferol (VITAMIN D3) 1,000 unit capsule take 1 by Oral route once 0 0 09/23/2014 Active aspirin 325 mg tablet take 1 Tablet by oral route every day 0 0 09/23/2014 Active hydrALAZINE (APRESOLINE) 100 mg tablet Take 1 tablet (100 mg total) by mouth 2 (two) times a day 12/02/2019 Active levothyroxine (SYNTHROID) 75 mcg tablet Take 1 tablet (75 mcg total) by mouth daily 07/03/2022 Active Active Problems Problem Noted Date Diagnosed Date CAD (coronary artery disease) 11/21/2016 S/P coronary artery stent placement 11/21/2016 Essential hypertension 03/10/2015 Overview (07/25/2016): Essential hypertension Hypercholesterolemia 03/10/2015 Overview (07/25/2016): Hypercholesterolemia Encounters Date Type Department Care Team Description 02/12/2024 2:30 PM CDT Office Visit [facility] Cardiology [address] [place] [address] Anselmo Crawford MD S/P coronary artery stent placement (Primary Dx); Coronary artery disease involving [place] coronary artery of [place] heart without angina pectoris from Last 3 Months Immunizations Name Administration Dates Next Due Influenza, Trivalent, High D ose, Split, Preservative Free, Intramuscular 03/10/2015 Pneumococcal Polysaccharide PPV23 02/20/2008 Medical History Medical History Date Comments Hyperlipidemia Hyperlipidemia; Comments: RRG 03/10/2015 - Hypertension Hypertension Chronic coronary artery disease Coronary artery disease Family History Medical History Relation Name Comments Heart attack Father Myocardial infa rction; Bone cancer Mother Cancer, bone; Breast cancer Mother Cancer, breast ; Liver cancer Mother Cancer, liver; Other Sister 2 Alive and well; Relation Name Status Comments Father Mother Sister 1 Alive Sister 2 Social History Tobacco Use Types Packs/Day Years Used Date Smoking Tobacco: Heavy Smoker Smokeless Tobacco: Never Tobacco Cessation:Ready to Q uit: Not Asked; Counseling Given: Not Answered Comments:Smoking History Packs/day: 0.5 Packs Alcohol Use Standard Drinks/Week Comments No 0 (1 standard drink = 0.6 oz pur e alcohol) Comments Unknown Sex and Gender Information Value Date Recorded Sex Assigned at Not on file 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 Gender Identity Not on file Sexual Orientation Not on file Obstetrics History Last Filed Vital Signs Vital Sign Reading Time Taken Comments Blood Pressure 120/60 02/12/2024 2:35 PM CDT Pulse 87 02/12/2024 2:35 PM CDT Temperature - - Respiratory Rate 16 07/09/2022 11:45 AM CDT Oxygen Saturation 98% 02/12/2024 2:35 PM CDT Inhaled Oxygen Concentration - - Weight 54.4 kg (120 lb) 02/12/2024 2:35 PM CDT Height 165.1 cm (5' 5 ) 02/12/2024 2:35 PM CDT Body Mass Index 19.97 02/12/2024 2:35 PM CDT Plan of Treatment Health Maintenance Due Date Last Done Comments Depression Screening 1940 Fall Risk Assessment 1940 DTaP/Tdap/Td Vaccine (1 - Tdap) 1949 Hepatitis B Screening 01/17/1956 Zoster Vaccine (1 of 2) 01/17/1988 Well Visit 65+ 2003 Pneumococcal vaccine 65+ (2 of 2 - PCV) 02/19/2009 02/20/2008 Influenza Vaccine (#1) 2023 8, 01/31/2016, 03/10/2015, Additional history exists Insurance MEDICARE [employer] MEDICARE FOR LIFE Care Teams Facilities Painter Relationship Specialty Start Date End Date Dominic Wilder MD PCP - General Family Practice 02/13/23
--- OUTSIDE RECORDS SUMMARY | 2024-05-13 14:56 | XMS_ITS | Referral Summary ---
Author Organization [facility] Address [address] [place] [address] Care Team Providers Care Globe Changer Name Role Phone Suhail Crump MD Primary Care Provider [phone] Norman Garcia MD Unavailable [phone] [facility],non-[facility] Affiliates and Associated Physician Practices is amultiple site organization consisting of ambulatory clinics and hospital sitesin [place], [place], [place] and [place]. This disclosure is being madepursuant to the Care Everywhere program and may not contain all information available regarding this patient. Last updated 18.[facility] Allergies Active Allergy Reactions Criticality Noted Date Comments Amoxicillin Anaphylaxis High 08/09/2014 Penicillins 10/19/2014 Medications * Be aware that medications may not be up to date on this document. Alwaysverify current medications with the patient. Medication Sig Dispensed Refills Start Date End Date Status aspirin 325 MG tablet Take 325 mg by mouth daily. Active Vitamin D, Cholecalciferol, 400 UNITS CHEW Take by mouth. Active atorvastatin (LIPITOR) 80 MG tabletIndications:Hyp ercholesteremia Take 1 Tab by mouth at bedtime. 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 (AF LURIA, FLUZONE TRIVALENT; 6MO+) (IIV3) 01/15/2012,12/27/2010,01/24/2010,2008 FLU VACCINE TRI IIV3 SPLIT P F IM (FLUVIRIN) 02/08/2013 INFLUENZA VACCINE 03/25/2007 PNEUMOCOCCAL PPSV23 02/20/2008 Social History Tobacco Use Types Packs/Day Years Used Date Smoking Tobacco: Every Day Tobacco Cessation:Ready to Q uit: No; Counseling Given: Yes Alcohol Use Standard Drinks/Week Comments No 0 (1 standard drink = 0.6 oz pur e alcohol) Sex and Gender Information Value Date Recorded Sex Assigned at Not on file Gender Identity Not on file Sexual Orientation Not on file Last Filed Vital Signs Vital Sign Reading Time Taken Comments Blood Pressure 132/70 10/19/2014 10:56 AM CDT Pulse 80 03/04/2014 2:29 PM RN TELEMETRY Temperature - - Respiratory Rate - - Oxygen Saturation - - Inhaled Oxygen Concentration - - Weight 70.3 kg (155 lb) 10/19/2014 10:56 AM CDT Height 167.6 cm (5' 6 ) 10/19/2014 10:56 AM CDT Body Mass Index 25.02 10/19/2014 10:56 AM CDT Plan of Treatment Not on file Goals Goal Patient Goal Type Associated Problems Recent Progress Patient-Stated? Author Blood Pressure < 140/90 Blood Pressure 132/70(2014 10:56 AM CDT) No Radha Suggs MA Note: Try to lower your blood pressure to 120/80 before your next visit Quit smoking / using tobacco Lifestyle No Radha Suggs MA Care Teams Globe Changer Relationship Specialty Start Date End Date Suhail Crump MD [address] [address] PCP - General 09/16/08 Norman Garcia MD [address] [address] Cardiology 06/09/13
--- OUTSIDE RECORDS SUMMARY | 2024-05-13 14:56 | XMS_ITS | Referral Summary ---
Author Organization [facility] [place] [address] [place] [address] [address] [place] [address] Care Team Providers Care Maple Products Supervisor Name Role Phone Dominic Wilder MD Primary Care Provider [phone] Encounters Date Type Department Care Team Description 02/12/2024 2:30 PM CDT Office Visit [facility] Cardiology [address] [place] [address] Anselmo Crawford MD S/P coronary artery stent placement (Primary Dx); Coronary artery disease involving [place] coronary artery of [place] heart without angina pectoris from Last 3 Months Allergies Active Allergy Reactions Criticality Noted Date [...] Essential hypertension Hypercholesterolemia 03/10/2015 Overview (07/25/2016): Hypercholesterolemia Immunizations Name Administration Dates Next Due Influenza, Trivalent, High D ose, Split, Preservative Free, Intramuscular 03/10/2015 Pneumococcal Polysaccharide PPV23 02/20/2008 Social History Tobacco Use Types Packs/Day [...] on file 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
--- OUTSIDE RECORDS SUMMARY | 2024-05-13 14:56 | XMS_ITS | Continuity of Care Document ---
Author Organization [facility] [place] Address [address] [place] [address] Phone Care Team Providers Care Tick Eradicator Name Role Phone Jese Cruz Unavailable Unavailable Procedures Procedure Date Eye Exam & Treatment Refraction Eye Exam, New Patient No Script Refraction Vision Svcs Frames Purchases Lens-Index 1.54-1.79 Glass Special Base Curve Advance Directives Directive Yes / No Effective Date File Name No Information Encounters Encounter Description Practice Location Reason(s) For Visit Diagnoses Date Provider Providers Copied on Encounter [facility], [address] [place] [address] [address], [place], [place], [id number], tel:[phone] [facility] No Information 8-201 0 Anthony Sawant. [address] , [address], [place], [place], [facility], . tel:[phone] [facility], [address] [place] [address] [address], [place], [place], [id number], [place] tel:[phone] [facility] No Information 1-200 9 Anthony Sawant. [address] , [address], [place], [place], [facility], . tel:[phone] [facility], [address], [place], [place], [id number], tel:[phone] [facility] No Information 1 9 [facility] . [address], [address], [place], [place], [id number], [place]. tel:[phone] Referring Provider: Jese Basurto, [address], [place], [address]. tel:[phone] hawthorne Provider: Awilda Vences, [address] [place] [address] [address], [place], [address]. tel:[phone] Family History Family Member Type Diagnosis Age At Onset No Information Payers Payer name Insurance type Covered alliance party ID Authoriza tion(s) [place] [id number] For Life Mdcr Supp CI [id number] Social History Type Description Quantity Date Captured [...]
--- OUTSIDE RECORDS SUMMARY | 2024-05-13 14:56 | XMS_ITS | Patient Health Summary ---
Author Organization [facility] Address [address] [place] [address] Care Team Providers Care Human Intelligence Name Role Phone Suhail Crump MD Primary Care Provider [phone] Norman Garcia MD Unavailable [phone] Note from [facility],non-owned Affiliates and Associated Physician Practices is amultiple site organization consisting of ambulatory clinics and hospital sitesin [place], [place], [place] and [place]. This disclosure is being madepursuant to the Care Everywhere program and may not contain all information available regarding this patient. Last updated 18.[facility] Allergies * Amoxicillin(Anaphylaxis) -High Criticality * Penicillins Medications * Be aware that medications may not be up to date on this document. Alwaysverify current medications with the patient. * aspirin 325 MG tablet Take 325 mg by mouth daily. * Vitamin D, Cholecalciferol, 400 UNITS CHEW Take by mouth. * atorvastatin (LIPITOR) 80 MG tablet(Started 04/29/2014) Take 1 Tab by mouth at bedtime. 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 (AFLURIA, FLUZONE TRIVALENT; 6MO+) (IIV3)(Given 01/15/2012, 12/27/2010, 01/24/2010, 01/25/2009) * FLU VACCINE TRI IIV3 SPLIT PF IM (FLUVIRIN)(Given 02/08/2013) * INFLUENZA VACCINE(Given 03/25/2007) * PNEUMOCOCCAL PPSV23(Given 02/20/2008) Social History Tobacco Use Types Packs/Day Years [...] AM CDT Pulse 80 03/04/2014 2:29 PM LINTER TENDER Temperature - - Respiratory Rate - - Oxygen Saturation - - Inhaled Oxygen Concentration - - Weight 70.3 kg (155 lb) 10/19/2014 10:56 AM CDT Height 167.6 cm (5' 6 ) 10/19/2014 10:56 AM CDT Body Mass Index 25.02 10/19/2014 10:56 AM CDT Procedures * VITAMIN D 25-HYDROXY(Performed 05/17/2014) * CBC W AUTO DIFFERENTIAL(Performed 05/17/2014) * COMPREHENSIVE METABOLIC PANEL(Performed 05/17/2014) * THYROID PANEL W TSH (TSH,T4,T3 UPTAKE,FTI)(Performed 05/17/2014) * LIPID PROFILE W LDL/HDL RATIO(Performed 05/17/2014) * CARDIAC EKG ORDER(Performed 11/25/2012) * VITAMIN D 25-HYDROXY(Performed 11/24/2012) * CBC W AUTO DIFFERENTIAL(Performed 11/24/2012) * COMPREHENSIVE METABOLIC PANEL(Performed 11/24/2012) * THYROID PANEL W TSH (TSH,T4,T3 UPTAKE,FTI)(Performed 11/24/2012) * LIPID PROFILE(Performed 11/24/2012) * US BREAST LEFT COMPLETE(Performed 10/07/2012) Performed for Abnormal Mammogram, Unspecified * MAMMO LEFT DIAGNOSTIC(Performed 10/07/2012) Performed for Abnormal Mammogram, Unspecified * MAMMO BILAT SCREENING(Performed 09/03/2012) Performed for Other Screening Mammogram * VITAMIN D 25-HYDROXY(Performed 06/13/2011) * CBC W AUTO DIFFERENTIAL(Performed 06/13/2011) * COMPREHENSIVE METABOLIC PANEL(Performed 06/13/2011) * THYROID PANEL W TSH (TSH,T4,T3 UPTAKE,FTI)(Performed 06/13/2011) * LIPID PROFILE(Performed 06/13/2011) * CBC W AUTO DIFFERENTIAL(Performed 03/07/2010) * VITAMIN D 1,25 DIHYDROXY(Performed 03/07/2010) * COMPREHENSIVE METABOLIC PANEL(Performed 03/07/2010) * THYROID PANEL W TSH (TSH,T4,T3 UPTAKE,FTI)(Performed 03/07/2010) * LIPID PROFILE(Performed 03/07/2010) * TSH(Performed 01/18/2009) * T4 TOTAL(Performed 01/18/2009) * COMPREHENSIVE METABOLIC PANEL(Performed 01/18/2009) * LIPID PROFILE(Performed 01/18/2009) * TSH(Performed 02/25/2008) * T4 TOTAL(Performed 02/25/2008) * TSH(Performed 11/02/2007) * T4 TOTAL(Performed 11/02/2007) * COMPREHENSIVE METABOLIC PANEL(Performed 11/02/2007) * LIPID PROFILE(Performed 11/02/2007) * CARDIAC STRESS TEST ORDER(Performed 05/27/2007) * CARDIAC CATH(Performed 10/11/2002) Results * (ABNORMAL) LIPID PROFILE W LDL/HDL (PO REF LAB) (05/17/2014 7:18 AM LINTER TENDER) Cholesterol 170 125 - 200 mg/dL [facility] Comment: Test Performed at: [facility] [address] ??[phone] ABY LIANG DO,MPH HDL Cholesterol 51 > OR = 46 mg/dL [facility] Triglycerides 177(H) <150 mg/dL [facility] LDL Direct 92 <130 mg/dL [facility] Comment: Desirable range <100 mg/dL for patients with CHD or diabetes and <70 mg/dL for diabetic patients with known heart disease. CHOL/HDLC RATIO 3.3 < OR = 5.0 (calc) [facility] Non HDL Cholesterol 119 mg/dL (calc) [facility] Comment: Target for non-HDL cholesterol is 30 mg/dL higher than LDL cholesterol target. 05/17/2014 7:18 AM LINTER TENDER 05/17/2014 7:18 AM LINTER TENDER Suhail Crump MD LAB - CHEMISTRY O MERVAT Performing Organization Address [facility] de Phone Number [facility] [phone] [place] [address] * THYROID PANEL W TSH (05/17/2014 7:18 AM LINTER TENDER) Only the most recent of4 resultswithin the time period is included. T3 Uptake 28 22 - 35 % [facility] T4 Total 9.0 4.5 - 12.0 mcg/dL [facility] Thyroxine Free Index 2.5 1.4 - 3.8 [facility] Comment: Test Performed at: [facility] ??[phone] ABY LIANG DO,MPH TSH 1.72 0.40 - 4.50 mIU/L [facility] 05/17/2014 7:18 AM LINTER TENDER 05/17/2014 7:18 AM LINTER TENDER Suhail Crump MD LAB - CHEMISTRY O MERVAT Performing Organization Address [facility] [place] [address] * VITAMIN D 25-HYDROXY (05/17/2014 7:18 AM LINTER TENDER) Only the most recent of3 resultswithin the time period is included. Vitamin D, 25 Hydroxy 42 30 - 100 ng/mL [facility] Comment: 25-OHD3 indicates both endogenous production and supplementation. 25-OHD2 is an indicator of exogenous sources, such as diet or supplementation. Therapy is based on measurement of Total 25-OHD, with levels <20 ng/mL indicative of Vitamin D deficiency, while levels between 20 ng/mL and 30 ng/mL suggest insufficiency. Optimal levels are > or = 30 ng/mL. Vitamin D, 25 Hydroxy D3 42 See Below ng/mL [facility] Comment:Reference Range: Not established Vitamin D, 25 Hydroxy D2 <4 See Below ng/mL [facility] Comment: Reference Range: Not established REPORT COMMENT: FASTING:YES Test Performed at: [facility] [address] [place], [place] ??[phone] CHERRI RODRÍGUEZ MD,FCAP 05/17/2014 7:18 AM LINTER TENDER 05/17/2014 7:18 AM LINTER TENDER Suhail Crump MD LAB - CHEMISTRY O RDERABLES [facility] [address] [place] [address] * CBC W AUTO DIFFERENTIAL (05/17/2014 7:18 AM LINTER TENDER) Only the most recent of4 resultswithin the time period is included. White Blood Cell Count 8.8 3.8 - 10.8 Thousand/u L [facility] RBC 5.03 3.80 - 5.10 Million/uL [facility] Hemoglobin 14.3 11.7 - 15.5 g/dL [facility] Hematocrit 43.8 35.0 - 45.0 % [facility] MCV 87.1 80.0 - 100.0 fL [facility] MCH 28.4 27.0 - 33.0 pg [facility] MCHC 32.6 32.0 - 36.0 g/dL [facility] RDW 14.1 11.0 - 15.0 % [facility] Platelet Count 188 140 - 400 Thousand/u L [facility] Neutrophil Absolute 5526 1500 - 7800 cells/uL [facility] Lymphocytes Absolute 2517 850 - 3900 cells/uL [facility] Absolute Monocytes 502 200 - 950 cells/uL [facility] Eosinophils Absolute 202 15 - 500 cells/uL [facility] Basophils Absolute 53 0 - 200 cells/uL [facility] Granulocytes % 62.8 % [facility] Lymphocytes % 28.6 % [facility] Monocytes % 5.7 % [facility] Eosinophils % 2.3 % [facility] Basophils % 0.6 % [facility] Comment: Test Performed at: [facility] [address] [place] ??[phone] ABY LIANG DO,MPH 05/17/2014 7:18 AM LINTER TENDER 05/17/2014 7:18 AM LINTER TENDER Suhail Crump MD LAB - HEMATOLOGY ORDERABLES Performing Organization Address [facility] Co de Phone Number [facility] [address] [place] [address] * (ABNORMAL) COMPREHENSIVE METABOLIC PANEL (05/17/2014 7:18 AM LINTER TENDER) Only the most recent of6 resultswithin the time period is included. Glucose 100(H) 65 - 99 mg/dL [facility] Comment: ? Fasting reference interval BUN 17 7 - 25 mg/dL [facility] Creatinine 1.02(H) 0.60 - 0.93 mg/dL [facility] Comment: For patients >49 years of age, the reference limit for Creatinine is approximately 13% higher for people identified as -Scottish. eGFR by MDRD 53(L) > OR = 60 mL/min/1. 73m2 [facility] eGFR by MDRD 62 > OR = 60 mL/min/1. 73m2 [facility] BUN/Creatinine Ratio 17 6 - 22 (calc) [facility] Sodium 145 135 - 146 mmol/L [facility] Potassium 4.3 3.5 - 5.3 mmol/L [facility] Chloride 106 98 - 110 mmol/L [facility] CO2 27 19 - 30 mmol/L [facility] Calcium 9.8 8.6 - 10.4 mg/dL [facility] Protein Total 6.8 6.1 - 8.1 g/dL [facility] Albumin 4.4 3.6 - 5.1 g/dL [facility] Globulin Total 2.4 1.9 - 3.7 g/dL (calc) [facility] Albumin/Globulin Ratio 1.8 1.0 - 2.5 (calc) [facility] Bilirubin Total 0.7 0.2 - 1.2 mg/dL [facility] Alkaline Phosphatase 120 33 - 130 U/L [facility] AST 18 10 - 35 U/L [facility] ALT 23 6 - 29 U/L [facility] Comment: Test Performed at: [facility] ??[phone] ABY LIANG DO,MPH 05/17/2014 7:18 AM LINTER TENDER 05/17/2014 7:18 AM LINTER TENDER Suhail Crump MD LAB - CHEMISTRY O RDERABLES Performing Organization Address City/[facility] Co de Phone Number [facility] [address] [place] [address] * CARDIAC EKG ORDER (11/25/2012) Norman Garcia MD CARDIAC SERVICE S ORDERABLES * (ABNORMAL) LIPID PROFILE (11/24/2012 7:09 AM CDT) Only the most recent of5 resultswithin the time period is included. Cholesterol 165 125 - 200 mg/dL [facility] Comment: Test Performed at: [facility] [address] [place], [place] ??[phone] ABY LIANGDO,MPH HDL Cholesterol 49 > OR = 46 mg/dL [facility] Triglycerides 199(H) <150 mg/dL [facility] LDL Calculated 76 <130 mg/dL (calc) [facility] Comment: Desirable range <100 mg/dL for patients with CHD or diabetes and <70 mg/dL for diabetic patients with known heart disease. CHOL/HDLC RATIO 3.4 < OR = 5.0 (calc) [facility] Non HDL Cholesterol 116 mg/dL (calc) [facility] Comment: Target for non-HDL cholesterol is 30 mg/dL higher than LDL cholesterol target. 11/24/2012 7:09 AM CDT 11/24/2012 7:10 AM CDT Suhail Crump MD LAB - CHEMISTRY O MERVAT Performing Organization Address [facility] Co de Phone Number [facility] [address] [place] [phone] * US BREAST UNILATERAL LEFT (10/07/2012 10:51 AM CDT) Anatomical Region Laterality Modality Breast Left Ultrasound 10/07/2012 10:5 8 AM CDT Narrative 10/07/2012 10:58 AM CDT EXAMINATION: Left digital diagnostic mammogram and ultrasound on 10/07/2012 INDICATION: Nodularity on screening FINDINGS: Computer assisted detection was not utilized. ?? Spot compression views demonstrate persistent nodularity Behind the nipple. Ultrasound of the retroareolar region demonstrates in 8 mm cyst behind the nipple. In the three o'clock position 1 cm from the nipple there is a 1 cm cyst. In the 12 o'clock position 2 cm from the nipple there are two adjacent 3 mm cyst.. ? ASSESSMENT: BIRADS Category 2: ?? Benign finding(s).. RECOMMENDATION: Screening mammogram in one year. Procedure Note Anny Wagner MD - 10/07/2012 EXAMINATION: Left digital diagnostic mammogram and ultrasound on 10/07/2012 INDICATION: Nodularity on screening FINDINGS: Computer assisted detection was not utilized. Spot compression views demonstrate persistent nodularity Behind the nipple. Ultrasound of the retroareolar region demonstrates in 8 mm cyst behind the nipple. In the three o'clock position 1 cm from the nipple there is a 1 cm cyst. In the 12 o'clock position 2 cm from the nipple there are two adjacent 3 mm cyst.. ASSESSMENT: BIRADS Category 2: Benign finding(s).. RECOMMENDATION: Screening mammogram in one year. Suhail Crump MD US ORDERABLES * MAMMO DIAG DIRECT DIGITAL IMAGE UNIL LEFT (10/07/2012 10:32 AM CDT) Anatomical Region Laterality Modality Left Mammography 10/07/2012 10:5 8 AM CDT Narrative 10/07/2012 10:58 AM CDT EXAMINATION: Left digital diagnostic mammogram and ultrasound on 10/07/2012 INDICATION: Nodularity on screening FINDINGS: Computer assisted detection was not utilized. ?? Spot compression views demonstrate persistent nodularity Behind the nipple. Ultrasound of the retroareolar region demonstrates in 8 mm cyst behind the nipple. In the three o'clock position 1 cm from the nipple there is a 1 cm cyst. In the 12 o'clock position 2 cm from the nipple there are two adjacent 3 mm cyst.. ? ASSESSMENT: BIRADS Category 2: ?? Benign finding(s).. RECOMMENDATION: Screening mammogram in one year. Procedure Note Anny Wagner MD - 10/07/2012 EXAMINATION: Left digital diagnostic mammogram and ultrasound on 10/07/2012 INDICATION: Nodularity on screening FINDINGS: Computer assisted detection was not utilized. Spot compression views demonstrate persistent nodularity Behind the nipple. Ultrasound of the retroareolar region demonstrates in 8 mm cyst behind the nipple. In the three o'clock position 1 cm from the nipple there is a 1 cm cyst. In the 12 o'clock position 2 cm from the nipple there are two adjacent 3 mm cyst.. ASSESSMENT: BIRADS Category 2: Benign finding(s).. RECOMMENDATION: Screening mammogram in one year. Suhail Crump MD MAMMO ORDERABLES * JOCELYN SCREENING DIGITAL IMAGE BILATERAL [id number] (09/03/2012 9:50 AM CDT) Anatomical Region Laterality Modality Breast Bilateral Mammography 09/03/2012 2:01 PM CDT Narrative 09/03/2012 2:01 PM CDT EXAMINATION: Digital screening mammogram on 09/03/2012. PRIOR: 11/07/2004 filmscreen mammogram. FINDINGS: Computer assisted detection was utilized. ??The tissue density is heterogeneously dense which may obscure small masses. There is an area of architectural distortion in the left breast MLO image and about 4 cm from the nipple. About 3 cm inferior and anterior to the architectural distortion, a 1 cm diameter nodular density with partially obscured margin is present. Additional evaluation is recommended. The right breast is unremarkable. ASSESSMENT: BIRADS Category 0: ?? Incomplete - Needs additional imaging evaluation. RECOMMENDATION: Spot image left breast with possible sonogram. [facility] utilizes [employer] as a reminder system to notify patients of their next recommended mammogram. Procedure Note Zofia Cruz MD - 09/03/2012 EXAMINATION: Digital screening mammogram on 09/03/2012. PRIOR: 11/07/2004 filmscreen mammogram. FINDINGS: Computer assisted detection was utilized. The tissue density is heterogeneously dense which may obscure small masses. There is an area of architectural distortion in the left breast MLO image and about 4 cm from the nipple. About 3 cm inferior and anterior to the architectural distortion, a 1 cm diameter nodular density with partially obscured margin is present. Additional evaluation is recommended. The right breast is unremarkable. ASSESSMENT: BIRADS Category 0: Incomplete - Needs additional imaging evaluation. RECOMMENDATION: Spot image left breast with possible sonogram. [facility] utilizes [employer] as a reminder system to notify patients of their next recommended mammogram. Suhail Crump MD MAMMO ORDERABLES * VITAMIN D 1,25 DIHYDROXY (03/07/2010 7:10 AM LINTER TENDER) Pathologist [facility] Vitamin D Total 49 pg/mL [facility] Comment: ?Reference Range: ?18-72 ?? Vitamin D3, 1,25 Dihydroxy 49 [facility] Vitamin D, 25 Hydroxy <8 [facility] Comment: Reference ranges are established for total 1,25-dihydroxy vitamin D. Values for subcomponents D2 (derived from plant or fungal sources) and D3 (derived from human or animal sources) are provided for informational purposes only. This test was developed and its performance characteristics have been determined by [employer] [facility]. Performance characteristics refer to the analytical performance of the test. Test Performed at: [facility] [address] [place], [place] ??[phone] BLAYNE HANSON MD PHD 03/07/2010 7:10 AM LINTER TENDER 03/07/2010 11:27 PM LINTER TENDER Suhail Crump MD LAB - CHEMISTRY O RDERABLES Performing Organization Address City/State/[facility] Co de Phone Number [facility] [address] [place] [address] * TSH (01/18/2009 7:14 AM CDT) Only the most recent of3 resultswithin the time period is included. Pathologist [facility] TSH 2.44 0.40 - 4.50 mIU/L [facility] Comment: REPORT COMMENT: FASTING Test Performed at: [facility] [address] [place], [place] ??[phone] ABY LIANG DO,MPH 01/18/2009 7:14 AM CDT 01/18/2009 7:22 AM CDT Suhail Crump MD LAB - CHEMISTRY O RDSOHAIL Performing Organization Address [facility] Co de Phone Number [facility] [address] [place] [address] * T4 TOTAL (01/18/2009 7:14 AM CDT) Only the most recent of3 resultswithin the time period is included. T4 Total 12.5 4.5 - 12.5 mcg/dL [facility] Comment: Test Performed at: [facility] [address] [place], [place] ??[phone] ABY LIANG DO,MPH 01/18/2009 7:14 AM CDT 01/18/2009 7:22 AM CDT Suhail Crump MD LAB - CHEMISTRY O MERVAT Performing Organization Address [facility] de Phone Number [facility] [address] [place] [address] * CARDIAC STRESS TEST ORDER (05/27/2007) Norman Garcia MD CARDIAC SERVICE S ORDERABLES * CARDIAC CATH (10/11/2002) Norman Garcia MD CARDIAC SERVICE S ORDERABLES Care Teams Human Intelligence Relationship Specialty Start Date End Date Suhail Crump MD [address] [address] PCP - General 09/16/08 Norman Garcia MD [address] [address] Cardiology 06/09/13
--- OUTSIDE RECORDS SUMMARY | 2024-05-13 14:56 | XMS_ITS | Clinical Summary ---
Author Organization [facility] Address [address] [place] [address] Care Team Providers Care Cabinet Worker Name Role Phone Suhail Crump MD Primary Care Provider [phone] Norman Garcia MD Unavailable [phone] Source Comments [facility],non-[facility] Affiliates and Associated Physician Practices is amultiple site organization consisting of ambulatory clinics and hospital sitesin [place], [place], [place] and [place]. This disclosure is being madepursuant to the Care Everywhere program and may not contain all information available regarding this patient. Last updated 18.[facility] Allergies Active Allergy Reactions Criticality Noted Date [...] 02/08/2013 INFLUENZA VACCINE 03/25/2007 PNEUMOCOCCAL PPSV23 02/20/2008 Family History Medical History Relation Name Comments Heart Disease Father Cancer Mother Hypertension Mother Stroke Mother Relation Name Status Comments Father (Age 62) Mother (Age 89) Social History Tobacco Use Types Packs/Day Years [...] AM CDT Pulse 80 03/04/2014 2:29 PM DEPARTMENT DIRECTOR Temperature - - Respiratory Rate - - Oxygen Saturation - - Inhaled Oxygen Concentration - - Weight 70.3 kg (155 lb) 10/19/2014 10:56 AM CDT Height 167.6 cm (5' 6 ) 10/19/2014 10:56 AM CDT Body Mass Index 25.02 10/19/2014 10:56 AM CDT Plan of Treatment Health Maintenance Due Date Last Done Comments MEDICARE AWV ? 12 MONTHS 1940 DTAP/TDAP/TD VACCINES (1 - Tdap) 1957 ZOSTER VACCINE (1 of 2) 01/17/1988 PNEUMOCOCCAL VACCINE 50+ (2 of 2 - PCV) 02/19/2009 02/20/2008 Respiratory Syncytial Virus (RSV) Vaccine Pt: or over 60 yrs (1 - 1-dose 75+ series) 2013 COVID-19 VACCINE (1 - 2023- season) 2023 INFLUENZA VACCINE (#1) 2023 3, 01/15/2012, 12/27/2010, Additional history exists DEPRESSION SCREENING 04/21/2024 BONE DENSITY TESTING Addressed 10/07/2013 (Other - see comments) Overridden with the intention of not completing the topic HEPATITIS B VACCINE Aged Out No longe r eligible based on patient's age to complete this topic HIB VACCINE Aged Out No longer eligi ble based on patient's age to complete this topic HPV VACCINE Aged Out No longer eligi ble based on patient's age to complete this topic MENINGOCOCCAL (Group B) VACCINE Aged Out No longer eligible based on patient's age to complete this topic MENINGOCOCCAL VACCINE Aged Out No perri aries eligible based on patient's age to complete this topic Goals Goal Patient Goal Type Associated Problems Recent Progress Patient-Stated? Author Blood Pressure < 140/90 Blood Pressure 132/70(2014 10:56 AM CDT) No Radha Suggs MA Note: Try to lower your blood pressure to 120/80 before your next visit Quit smoking / using tobacco Lifestyle No Radha Suggs MA Care Teams Cabinet Worker Relationship Specialty Start Date End Date Suhail Crump MD [address] [phone] PCP - General 09/16/08 Norman Garcia MD [address] [phone] Cardiology 06/09/13
== END 2024-05-10 23:51 | disposition home or self-care (01) ==
PROVIDERS: Registered Nurse; Emergency Provider Emergency Medicine; PCP Family Medicine
DX: U07.1 COVID-19 (principal); J18.9 Pneumonia, unspecified organism; E86.0 Dehydration; I10 Essential (primary) hypertension; I25.10 Atherosclerotic heart disease of native coronary artery without angina pectoris; E05.90 Thyrotoxicosis, unspecified without thyrotoxic crisis or storm; E55.9 Vitamin D deficiency, unspecified; F17.210 Nicotine dependence, cigarettes, uncomplicated; Z95.5 Presence of coronary angioplasty implant and graft; Z79.82 Long term (current) use of aspirin; Z79.899 Other long term (current) drug therapy
CPT/HCPCS: 36415; 71046; 80053; 81001; 82550; 82948; 83735; 85025; 85610; 85730; 87637; 93005; 96360; 96361; 99283; J7030

== ENCOUNTER 2024-07-21 15:01 | Emergency (ER) | payer MEDICARE, OTHER, SELFPAY ==
[2024-07-21 15:14] VITALS: BP 140/73; PULSE 79; RESP 19; TEMP 37.1; O2SAT 97
[2024-07-21] MEDS: LIDOCAINE 1% LOCAL INJ 2 ML AMPUL 6 ML INFILTRATE (15:41)
--- NOTE | 2024-07-21 16:05 | ED.SKABFB ---
HPI - Skin/Abscess/Foreign Bdy General Chief complaint: Skin/Abscess/Foreign Body Stated complaint: Bump On left Shoulder Source: patient and RN notes reviewed Mode of arrival: ambulatory Limitations: no limitations History of Present Illness HPI narrative: 84-year-old female presents to the [facility] complaining of a possible abscess on her left scapula. She said she noticed this approximately 1 month ago and has significantly gotten worse over the last week. Patient reports that it is very tender to touch and notices any swelling on her left shoulder blade. She denies any fevers, body aches, chills, or any injury to the site. She reports having a heart history but only takes a daily aspirin for antiplatelet therapy. Related Data Home Medications ?Medication ?Instructions ?Recorded ?Confirmed ?Last Taken ?Type aspirin 325 mg tablet 325 mg PO DAILY 12/02/19 04/04/23 Unknown History cholecalciferol (vitamin D3) 25 25 mcg PO DAILY 12/02/19 04/04/23 Unknown History mcg (1,000 unit) tablet Allergies Allergy/AdvReac Type Severity Reaction Status Date / Time amoxicillin Allergy Mild RASH Verified 07/21/24 15:04 Penicillins Allergy Mild hives Verified 07/21/24 15:04 Review of Systems Review of Systems: CONSTITUTIONAL: Denies fever, chills, or sweats. EYES: Denies visual changes, redness, or discharge. ENT: Denies rhinorrhea, congestion, sore throat, or otalgia. CARDIOVASCULAR: Denies chest pain, palpitations, or edema. RESPIRATORY: Denies cough or dyspnea. GASTROINTESTINAL: Denies abdominal pain, nausea, vomiting, or diarrhea. GENITOURINARY: Denies dysuria or hematuria. SKIN: Denies rash or itching. Positive for wound MUSCULOSKELETAL: Denies back pain, joint pain, or myalgia. NEUROLOGIC: Denies headache, numbness, or weakness. PSYCHIATRIC: Denies anxiety or depression. All other systems reviewed are negative, except as documented in HPI. [facility] Past Medical History Medical History Vitamin D deficiency Hypothyroidism Dyslipidemia Hypertension Coronary artery disease Surgical History Surgical History History of appendectomy History of arthroscopic knee surgery History of heart artery stent Family History Family History Sibling Patient's sister is in good health Mother Family history of malignant neoplasm of breast in first degree relative Father Family history of coronary artery disease Social History Social History Social History: Surrogate medical decision maker: Emilia Pedraza, daughter. Code status: Full code. She would not want to be on life support longer than 2.5 days. Smoking packs per day: 1 Smoking cigarettes per day: 20.0 Years smoked: 64 Smoking pack-years: 64.00 Smoking status: Current every day smoker Tobacco type: cigarettes Second hand tobacco smoke exposure: No Alcohol intake: never Substance use: never Substance use type: does not use Do You Feel Safe in your Home?: Yes Lack of Transportation: No Lack of Food: Never True Current Housing: I Have Housing Concerned About Future Housing: No Difficulty Paying Gas/Electric Bills: No Difficulty Paying for Meds: No Currently Unemployed: No Education: Associate Degree Difficulty w/ Childcare or Family Care: No Living arrangements: alone Additional living arrangements comments: as of January 2022. Lives alone in [place] with her dog. Occupation/Education: retired Gender identity (if verbalized by the patient): Female Spiritual care concerns: No Comments At the time of my signature, I reviewed and agree with the nursing past medical, surgical, social, and family history. There is no relevant family history pertinent to the patient complaint. Exam Narrative: GENERAL: This is a well-nourished, well-developed adult, in no apparent distress. They are non ill-appearing, nontoxic appearing. HEAD: normocephalic, atraumatic. EYES: Sclera clear/white. Vision is grossly intact. EARS: External ears normal, Hearing grossly intact. NOSE: External nose normal THROAT: Mucous membranes moist, NECK: Neck supple CARDIOVASCULAR: Regular rate and rhythm RESPIRATORY: Regular respiratory rate and depth, no respiratory distress SKIN: Left scapula: There is approximately a 6 cm round erythematous lesion with an area of fluctuance to the center of the lesion. Moderate induration surrounding the lesion. No drainage present. NEURO: awake, alert, and oriented to person, place and time. There were no obvious focal neurologic abnormalities. EXTREMITIES: No edema BACK: Nontender without deformity. Course Course Level of Care: Express Care Visit Vital Signs Vital signs: Vital Signs Temperature 98.8 F 07/21/24 15:14 Pulse Rate 79 07/21/24 15:14 Respiratory Rate 19 07/21/24 15:14 Blood Pressure 140/73 07/21/24 15:14 Pulse Oximetry 97 07/21/24 15:14 Oxygen Delivery Room Air 07/21/24 15:14 Temperature 98.8 F 07/21/24 15:14 Pulse Rate 79 07/21/24 15:14 Respiratory Rate 19 07/21/24 15:14 Blood Pressure 140/73 07/21/24 15:14 Pulse Oximetry 97 07/21/24 15:14 Oxygen Delivery Room Air 07/21/24 15:14 Reviewed Procedures Abscess I/D back: Date of Incision: 07/21/24 Time of Incision: 15:50 Side (if applicable): left Local Anesthetic: lidocaine 1% Amount of anesthesia used (mL): 4 Technique: incised with #11 blade Amount of fluid expressed (mL): 10 Irrigation: Yes Packing used?: iodoform I&D Results: Pus and Blood Abcess I&D Additional Comments: Patient tolerated procedure well MDM - Skin/Abscess/Foreign Bdy MDM Narrative Medical decision making narrative: Successful I and D was performed to the wound on the left scapula. Wound was packed with iodoform, consider prescribing Keflex for this infection, however given her penicillin allergy, doxycycline will be prescribed instead. She has no history of abscesses or any history of MRSA infections. Discussed physical exam findings. Advised supportive measures and signs/symptoms to go to the ER. Pt is appropriate for outpt treatment and f/u. Differential Diagnosis Differential diagnosis: Likely abscess of skin or subcutaneous tissue, cellulitis and contact dermatitis Critical Care Time Critical Care Time Critical Care Time: No Discharge Plan Discharge Clinical Impression: Abscess Patient Disposition: Home, Self-Care Condition: Stable Instructions: Antibiotic Form, Abscess (ED) Additional Instructions: DO NOT pick at the area. This will only make the area worse and drive infection deeper. Take all the antibiotics as prescribed. Remove the packing in 48 hours. Keep the area dry to the packing is removed. After the packing was removed you may wash the area with mild soap and water. Keep covered until it is scabbed over. Follow up with PCP in 7-10 days Return to Urgent care or go to the ER for worsened condition or Symptoms Patient Language: Citizen Of [place] Prescriptions: New doxycycline monohydrate 100 mg capsule 100 mg PO BID 7 Days Qty: 14 0RF No Action aspirin 325 mg tablet 325 mg PO DAILY cholecalciferol (vitamin D3) 25 mcg (1,000 unit) tablet 25 mcg PO DAILY ezetimibe 10 mg tablet 10 mg PO HS Qty: 90 1RF levothyroxine 75 mcg tablet 75 mcg PO DAILY Qty: 90 1RF atorvastatin 80 mg tablet 80 mg PO HS Qty: 90 1RF metoprolol succinate 25 mg tablet extended release 24 hr See Rx Instructions .ROUTE .COMPLEX Qty: 90 1RF Dose Instruction: TAKE 1 TABLET BY MOUTH DAILY Rx Instructions: TAKE 1 TABLET BY MOUTH DAILY trazodone 50 mg tablet See Rx Instructions .ROUTE .COMPLEX Qty: 90 1RF Dose Instruction: TAKE 1 TABLET BY MOUTH EVERY DAY AT BEDTIME NEEDED FOR INSOMNIA Rx Instructions: TAKE 1 TABLET BY MOUTH EVERY DAY AT BEDTIME NEEDED FOR INSOMNIA hydralazine 50 mg tablet 100 mg PO BID Qty: 360 3RF lisinopril 40 mg tablet See Rx Instructions .ROUTE .COMPLEX Qty: 30 0RF Dose Instruction: TAKE 1 TABLET BY MOUTH DAILY Rx Instructions: TAKE 1 TABLET BY MOUTH DAILY Follow-up/Referrals: Dominic Wilder MD [Primary Care Provider] - Time of Disposition: 16:10
== END 2024-07-21 16:15 | disposition home or self-care (01) ==
PROVIDERS: PCP Family Medicine
DX: L02.212 Cutaneous abscess of back [any part, except buttock and flank] (principal); F17.210 Nicotine dependence, cigarettes, uncomplicated; I10 Essential (primary) hypertension; I25.10 Atherosclerotic heart disease of native coronary artery without angina pectoris; E78.5 Hyperlipidemia, unspecified; E03.9 Hypothyroidism, unspecified; E55.9 Vitamin D deficiency, unspecified; Z95.5 Presence of coronary angioplasty implant and graft; Z79.82 Long term (current) use of aspirin
CPT/HCPCS: 10061; 99213; G0463; J2003

== ENCOUNTER 2024-07-29 13:42 | Emergency (ER) | payer MEDICARE, OTHER, SELFPAY ==
--- NOTE | 2024-07-29 13:50 | ED.SKABFB ---
HPI - Skin/Abscess/Foreign Bdy General Chief complaint: Skin/Abscess/Foreign Body Stated complaint: recheck cyst left shoulder Time Seen by Provider: 07/29/24 13:46 Source: patient, RN notes reviewed and old records reviewed Mode of arrival: ambulatory Limitations: no limitations History of Present Illness HPI narrative: John is a 84 year old female patient presenting to the clinic today with complaints of a wound check on the left shoulder. States that she was seen in the [facility] on July 21 and had a incision and drainage performed on a infected sebaceous cyst to the left posterior shoulder. States that it is still draining and smells bad. There is redness still surrounding the area. States she cannot get into her primary care doctor until the middle of August. Denies any fevers, chills, body aches. Allergies to penicillins. Finish taking the doxy as prescribed. Related Data Home Medications ?Medication ?Instructions ?Recorded ?Confirmed ?Last Taken ?Type aspirin 325 mg tablet 325 mg PO DAILY 12/02/19 04/04/23 Unknown History cholecalciferol (vitamin D3) 25 25 mcg PO DAILY 12/02/19 04/04/23 Unknown History mcg (1,000 unit) tablet Allergies Allergy/AdvReac Type Severity Reaction Status Date / Time amoxicillin Allergy Mild RASH Verified 07/21/24 15:04 Penicillins Allergy Mild hives Verified 07/21/24 15:04 Review of Systems Review of Systems: Pertinent positives per HPI. Patient denies any fever, chills, rash, headache, visual changes, dizziness, cough, runny nose, sore throat, shortness of breath, chest pain, palpitations, nausea, vomiting, diarrhea, constipation, abdominal pain, or any urinary issues. [facility] Past Medical History Medical History Vitamin D deficiency Hypothyroidism Dyslipidemia Hypertension Coronary artery disease Surgical History Surgical History History of appendectomy History of arthroscopic knee surgery History of heart artery stent Family History Family History Sibling Patient's sister is in good health Mother Family history of malignant neoplasm of breast in first degree relative Father Family history of coronary artery disease Social History Social History Social History: Surrogate medical decision maker: Emilia Pedraza, daughter. Code status: Full code. She would not want to be on life support longer than 2.5 days. Smoking packs per day: 1 Smoking cigarettes per day: 20.0 Years smoked: 64 Smoking pack-years: 64.00 Smoking status: Current every day smoker Tobacco type: cigarettes Second hand tobacco smoke exposure: No Alcohol intake: never Substance use: never Substance use type: does not use Do You Feel Safe in your Home?: Yes Lack of Transportation: No Lack of Food: Never True Current Housing: I Have Housing Concerned About Future Housing: No Difficulty Paying Gas/Electric Bills: No Difficulty Paying for Meds: No Currently Unemployed: No Education: Associate Degree Difficulty w/ Childcare or Family Care: No Living arrangements: alone Additional living arrangements comments: as of January 2022. Lives alone in [place] with her dog. Occupation/Education: retired Gender identity (if verbalized by the patient): Female Spiritual care concerns: No Comments At the time of my signature, I reviewed and agree with the nursing past medical, surgical, social, and family history. There is no relevant family history pertinent to the patient complaint. Exam Narrative: General: Well-developed, well nourished, in no apparent distress Head: Normocephalic, atraumatic. Cardio: Regular rate and rhythm, s1 and s2 normal, no murmur appreciated. Resp: Clear to auscultation bilaterally, no rhonchi, rales, wheezing or rubs. Integumentary: [place], warm, and dry, 0.5 cm incision to the subcutaneous skin of the left posterior shoulder, expressed approximately 5 mL of purulent discharge/cyst-like contents. Area was cleansed using antiseptic wound wash and normal saline. 2 x 2 and Band-Aid was applied. Has approximately 2 cm area redness surrounding wound Course Course Emergency Course: Portions of this record may have been created with voice recognition software. Level of Care: Express Care Visit Vital Signs Vital signs: Vital Signs Temperature 36.9 C 07/29/24 13:53 Pulse Rate 72 07/29/24 13:53 Respiratory Rate 14 07/29/24 13:53 Blood Pressure 115/59 L 07/29/24 13:53 Pulse Oximetry 98 07/29/24 13:53 Oxygen Delivery Room Air 07/29/24 13:53 Temperature 36.9 C 07/29/24 13:53 Pulse Rate 72 07/29/24 13:53 Respiratory Rate 14 07/29/24 13:53 Blood Pressure 115/59 L 07/29/24 13:53 Pulse Oximetry 98 07/29/24 13:53 Oxygen Delivery Room Air 07/29/24 13:53 Vital signs reviewed MDM - Skin/Abscess/Foreign Bdy MDM Narrative Medical decision making narrative: At the time of visit patient is resting comfortably on the exam table. Patient appears to be nontoxic. Plan: Patient has infected sebaceous cyst to the left posterior shoulder. Wound was expressed-green and white cyst like contents were expressed. Will place patient on clindamycin. Supportive measures were discussed with the patient and they voiced understanding discharge instructions and agrees to treatment plan. Return precautions reviewed Differential Diagnosis Differential diagnosis: Likely abscess of skin or subcutaneous tissue, viral exanthem, dermatophytosis, urticaria, herpes zoster, allergic reaction to drug, cellulitis, eczema, insect bites, impetigo, contact dermatitis and other (Infected sebaceous cyst) Discharge Plan Discharge Clinical Impression: Infected sebaceous cyst of skin Patient Disposition: Home Condition: Stable Instructions: Antibiotic Form, Cyst (ED) Additional Instructions: More cyst contents were expressed in the clinic today Keep wound clean and dry Keep covered if draining Take clindamycin as prescribed May take daily probiotic-take 2 hours before 2 hours after taking the antibiotic May take Tylenol as needed for pain Follow-up with your PCP for wound check and 2-3 days Patient Language: Bhutanese Prescriptions: New clindamycin HCl [Cleocin HCl] 300 mg capsule 300 mg PO Q8H 7 Days Qty: 21 0RF No Action doxycycline monohydrate 100 mg capsule 100 mg PO BID 7 Days Qty: 14 0RF aspirin 325 mg tablet 325 mg PO DAILY cholecalciferol (vitamin D3) 25 mcg (1,000 unit) tablet 25 mcg PO DAILY ezetimibe 10 mg tablet 10 mg PO HS Qty: 90 1RF levothyroxine 75 mcg tablet 75 mcg PO DAILY Qty: 90 1RF atorvastatin 80 mg tablet 80 mg PO HS Qty: 90 1RF metoprolol succinate 25 mg tablet extended release 24 hr See Rx Instructions .ROUTE .COMPLEX Qty: 90 1RF Dose Instruction: TAKE 1 TABLET BY MOUTH DAILY Rx Instructions: TAKE 1 TABLET BY MOUTH DAILY trazodone 50 mg tablet See Rx Instructions .ROUTE .COMPLEX Qty: 90 1RF Dose Instruction: TAKE 1 TABLET BY MOUTH EVERY DAY AT BEDTIME NEEDED FOR INSOMNIA Rx Instructions: TAKE 1 TABLET BY MOUTH EVERY DAY AT BEDTIME NEEDED FOR INSOMNIA hydralazine 50 mg tablet 100 mg PO BID Qty: 360 3RF lisinopril 40 mg tablet See Rx Instructions .ROUTE .COMPLEX Qty: 30 0RF Dose Instruction: TAKE 1 TABLET BY MOUTH DAILY Rx Instructions: TAKE 1 TABLET BY MOUTH DAILY Follow-up/Referrals: Clayton Corley APRN [Primary Care Provider] - Time of Disposition: 14:07 Quality NIHSS Nursing Documentation ED NIHSS nursing documentation: reviewed/agree
[2024-07-29 13:53] VITALS: BP 115/59; PULSE 72; RESP 14; TEMP 36.9; O2SAT 98
== END 2024-07-29 14:15 | disposition home or self-care (01) ==
PROVIDERS: Emergency Provider Nurse Practitioner Family; PCP Nurse Practitioner
DX: L72.3 Sebaceous cyst (principal); I25.10 Atherosclerotic heart disease of native coronary artery without angina pectoris; I10 Essential (primary) hypertension; E78.5 Hyperlipidemia, unspecified; E03.9 Hypothyroidism, unspecified; E55.9 Vitamin D deficiency, unspecified; F17.210 Nicotine dependence, cigarettes, uncomplicated; Z79.82 Long term (current) use of aspirin
CPT/HCPCS: 99213; G0463

== ENCOUNTER 2024-09-30 10:40 | Emergency (ER) | payer MEDICARE, OTHER, SELFPAY ==
[2024-09-30] VITALS (9 sets, daily range): BP systolic 114–148; BP diastolic 67–78; PULSE 67–83; RESP 12–18; TEMP 36.3–36.6; O2SAT 98–100
--- NOTE | ~2024-09-30 | XR_ITS ---
EXAMINATION: XR chest 2V 09/30/2024 11:58 INDICATION: Weakness. PROCEDURE: 2 view chest COMPARISON: Comparison to multiple prior studies sequentially, with oldest reviewed study dated 08/04. FINDINGS: The lungs are clear. The cardiomediastinal silhouette is within normal limits. There are no pleural effusions. There is no pneumothorax suspected. The lungs are hyperinflated which is cons istent with, but not diagnostic of chronic obstructive pulmonary disease. IMPRESSION: 1: NO ACUTE CARDIOPULMONARY DISEASE. Reviewed, dictated and finalized at location B.
--- NOTE | ~2024-09-30 | CT_ITS ---
EXAMINATION: CT brain wo con DATE: 09/30/2024 11:42 INDICATION: Altered mental status. Weakness. TECHNIQUE: Computed tomography (CT) of the head was performed without intravenous contrast. Sagittal and coronal reconstructions were performed. The mA was adjusted according to patient size. Iterative reconstruction technique was employed. The dose-length product was 605.33 mGy-cm. COMPARISON: None FINDINGS: No acute intracranial hemorrhage, acute infarction or abnormal extra axial fluid collection. There is mild scattered white matter hypoattenuation consistent with chronic small vessel ischemic disease. Ventricles are normal and symmetric. No mass/mass effect. Changes of bilateral intraocular lens repla cement. The orbits, paranasal sinuses and mastoid air cells are normal. IMPRESSION: 1. No acute intracranial process. 2. Mild scattered white matter hypoattenuation consistent with chronic small vessel ischemic disease. Reviewed, dictated and finalized at location A. IMPRESSION: 1. No acute intracranial process. 2. Mild scattered white matter hypoattenuation consistent with chronic small ve ssel ischemic disease.
--- NOTE | 2024-09-30 10:51 | ECG_ITS ---
Test Date: 2024-09-30 10:55:35 Measurements Intervals [place] Rate: 79 P: 74 CO: 172 QRS: -54 QRSD: 90 T: 64 QT: 381 QTc: 437 Interpretive Statements SINUS RHYTHM LEFT AXIS DEVIATION DELAYED PRECORDIAL R/S TRANSITION BASELINE ARTIFACT- V1, V4-V6 BORDERLINE ECG Compared to ECG 05/10/2024 20:59:26 Left-axis deviation now present Electronically Signed On 09-30-2024 11:21:36 CDT by Uli Mesa D.O.
[2024-09-30 10:52] LABS: Glucose Point of Care 124 mg/dl (65-105)
[2024-09-30 11:07] LABS: Basophils Absolute Auto 0.1 K/mm3 (0.0-0.1); Basophils Percent Auto 0.9 % (0.2-1.2); Eosinophils Absolute Auto 0.1 K/mm3 (0-0.3); Eosinophils Percent Auto 1.1 % (0-4.4); Hematocrit 47.4 % (37.0-47.0); Hemoglobin 15.1 g/dL (12.0-15.0); Immature Granulocyte Absolute 0.03 K/mm3 (0.00-0.031); Immature Granulocyte Percent A 0.5 % (0-0.5); Lymphocytes Absolute Auto 1.73 K/mm3 (0.9-3.2); Lymphocytes Percent Auto 26.9 % (18.3-44.2); Mean Corpuscular HGB Conc 31.9 g/dl (32-36); Mean Corpuscular Hemoglobin 28.1 pg (26-34); Mean Corpuscular Volume 88.1 fl (80-100); Mean Platelet Volume 10.9 fl (7.4-10.4); Monocytes Absolute Auto 0.4 K/mm3 (0.1-0.6); Monocytes Percent Auto 6.2 % (2.6-8.5); Neutrophils Absolute Auto 4.2 K/mm3 (1.3-6.7); Neutrophils Percent Auto 64.4 % (45.5-73.1); Platelet Count Result 177 k/mm3 (150-375); Red Blood Count 5.38 M/mm3 (4.2-5.4); Red Cell Distribution Width 14.2 % (11.5-14.5); White Blood Count 6.4 K/mm3 (4.5-10.0)
[2024-09-30 11:19] LABS: Alanine Aminotransferase 34 U/L (6-35); Albumin Level 4.4 g/dL (3.5-5.1); Alkaline Phosphatase 98 U/L (38-126); Anion Gap 8 mmol/L (4-12); Aspartate Amino Transferase 41 U/L (14-36); Bilirubin,Total 0.8 mg/dL (0.2-1.3); Blood Urea Nitrogen 16 mg/dL (7-17); Carbon Dioxide 24 mmol/L (22-30); Chloride 105 mmol/L (98-107); Estimated CRCL calculation 31 ml/min; Estimated Glomerular Filt Rate 51; Glucose 121 mg/dL (65-110); Potassium 3.8 mmol/L (3.4-5.0); Sodium 137 mmol/L (137-145); Total Protein 7.6 g/dL (6.3-8.2)
--- OUTSIDE RECORDS SUMMARY | 2024-09-30 11:36 | XMS_ITS | Clinical Summary ---
Author Organization [facility] [place] [address] Address [address] [place] [address] Care Team Providers Care Fairground Operator Name Role Phone Clayton Corley NP Primary Care Provider [phone] Allergies Active Allergy Reactions Criticality Noted Date [...] Encounters Date Type Department Care Team Description 08/26/2024 11:00 AM CDT Office Visit [facility] [address] [place] [address] Jennifer Juares NP Coronary artery disease involving [place] coronary artery of [place] heart without angina pectoris (Primary Dx); S/P coronary artery stent placement; Mild aortic stenosis; Essential hypertension from Last 3 Months Immunizations Immunization Administration Dates Next Due Influenza, Trivalent, High [...] on file 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 Gender Identity Not on file Sexual Orientation Not on file Obstetrics History Last Filed Vital Signs Vital Sign Reading Time Taken Comments Blood Pressure 134/70 08/26/2024 10:44 AM CDT Pulse 72 08/26/2024 10:44 AM CDT Temperature - - Respiratory Rate 16 07/09/2022 11:45 AM CDT Oxygen Saturation 97% 08/26/2024 10:44 AM CDT Inhaled Oxygen Concentration - - Weight 55.8 kg (123 lb) 08/26/2024 10:44 AM CDT Height 165.1 cm (5' 5) 08/26/2024 10:44 AM CDT Body Mass Index 20.47 08/26/2024 10:44 AM CDT Plan of Treatment Health Maintenance Due Date Last Done Comments Depression Screening 1940 Fall Risk Assessment 1940 DTaP/Tdap/Td Vaccine (1 - Tdap) 1949 Hepatitis B Screening 01/17/1956 Zoster Vaccine (1 of 2) 01/17/1988 Well Visit 65+ 2003 Pneumococcal vaccine 65+ (2 of 2 - PCV) 02/19/2009 02/20/2008 Influenza Vaccine (Season Ended) 2024 01/09/2018, 01/31/2016, 03/10/2015, Additional history exists Insurance MEDICARE [employer] MEDICARE FOR LIFE Care Teams Fairground Operator Relationship Specialty Start Date End Date Clayton Corley NP [address] [place] [address] PCP - General Nurse Practitioner 08/26/24
--- OUTSIDE RECORDS SUMMARY | 2024-09-30 11:36 | XMS_ITS | Clinical Summary ---
Author Organization [facility] Address [address] [place] [address] Care Team Providers Care Echo Technician Name Role Phone Suhail Crump MD Primary Care Provider [phone] Norman Garcia MD Unavailable [phone] Source Comments [facility],non-[facility] Affiliates and Associated Physician Practices is amultiple site organization consisting of ambulatory clinics and hospital sitesin [place], [place] and [place]. This disclosure is being madepursuant to the Care Everywhere program and may not contain all information available regarding this patient. Last updated 18.[facility] Allergies Active Allergy Reactions Criticality Noted Date Comments Amoxicillin Anaphylaxis High 08/09/2014 Penicillins 10/19/2014 Medications * Be aware that medications may not be up to date on this document. Alwaysverify current medications with the patient. aspirin 325 MG tablet Take 325 mg by mouth daily. Active Vitamin D, Cholecalciferol , 400 UNITS CHEW Take by mouth. Activ e atorvastatin (LIPITOR) 80 MG tabletIndicatio ns:Hypercholest eremia Take 1 Tab by mouth at bedtime. 90 Tab 3 5 Active quinapril (ACCUPRIL) 40 MG tablet TAKE 1 TABLET ONCE DAILY 90 Tab 2 5 Active ZETIA 10 MG tablet TAKE 1 TABLET ONCE DAILY 90 Tab 2 5 Active levothyroxine (SYNTHROID) 75 MCG tablet TAKE 1 TABLET DAILY BEFORE BREAKFAST 90 Tab 2 5 Active Active Problems Problem Noted Date Diagnosed [...] Date Resolved Date Hypertension 09/16/2008 01/25/2009 Immunizations Immunization Administration Dates Next Due INFLUENZA VACCINE, TRIV. [...] = 0.6 oz pur e alcohol) Comments No Sex and Gender Information Value Date Recorded Sex Assigned at Not on file Legal Sex Female 6:52 AM FIRST COAT OPERATOR Gender Identity Not on file Sexual Orientation Not on file Last Filed Vital Signs Vital Sign Reading Time Taken Comments Blood Pressure 132/70 10/19/2014 10:56 AM CDT Pulse 80 03/04/2014 2:29 PM FIRST COAT OPERATOR Temperature - - Respiratory Rate - - Oxygen Saturation - - Inhaled Oxygen Concentration - - Weight 70.3 kg (155 lb) 10/19/2014 10:56 AM CDT Height 167.6 cm (5' 6) 10/19/2014 10:56 AM CDT Body Mass Index 25.02 10/19/2014 10:56 AM CDT Plan of Treatment Health Maintenance Due Date Last Done Comments MEDICARE AWV 12 MONTHS 1940 DTAP/TDAP/TD VACCINES (1 - Tdap) 1957 ZOSTER VACCINE (1 of 2) 01/17/1988 PNEUMOCOCCAL VACCINE 50+ (2 of 2 - PCV) 02/19/2009 02/20/2008 Respiratory Syncytial Virus (RSV) Vaccine Pt: or over 60 yrs (1 - 1-dose 75+ series) 2013 COVID-19 VACCINE (1 - season) 2023 DEPRESSION SCREENING 04/21/2024 INFLUENZA VACCINE (Season Ended) 2024 02/08/2013, 01/15/2012, 12/27/2010, Additional history exists BONE DENSITY TESTING Addressed 10/07/2013 (Other - [...] complete this topic MENINGOCOCCAL (Group B) VACCINE SHARED DECISION-MAKING Aged Out No longer eligible based on patient's age to complete this topic MENINGOCOCCAL GROUPS A/C/Y/W VACCINE Aged Out No longer eligible based on patient's age to complete this topic Goals Goal Patient Goal Type Associated Problems Recent Progress Patient-Stated? Author Blood Pressure < 140/90 Blood Pressure 132/70(2014 10:56 AM CDT) No Radha Suggs MA Note: Try to lower your blood pressure to 120/80 before your next visit Quit smoking / using tobacco Lifestyle No Radha Suggs MA Insurance [facility] MEDICARE Care Teams Echo Technician Relationship Specialty Start Date End Date Suhail Crump MD [address] [address] PCP - General 09/16/08 Norman Garcia MD [address] [address] Cardiology 06/09/13
--- OUTSIDE RECORDS SUMMARY | 2024-09-30 11:36 | XMS_ITS | Continuity of Care Document ---
Author Organization [facility] [place] Address [address] [place] [address] Phone Care Team Providers Care Prepper Name Role Phone Jese Cruz Unavailable Unavailable Procedures Procedure Date Eye Exam & Treatment Refraction Eye Exam, New Patient No Script Refraction Vision Svcs Frames Purchases Lens-Index 1.54-1.79 Glass Special Base Curve Advance Directives Directive Yes / No Effective Date File Name No Information Encounters Encounter Description Practice Location Reason(s) For Visit Diagnoses Date Provider Providers Copied on Encounter [facility], [address] [place] [address] [address], [place], [place], [id number], tel:[phone] [facility] No Information 8-201 0 Anthony Sawant. [address] [facility] , [address], [place], [place], [facility], . tel:[phone] [facility], [address] [place] [address] [address], [place], [place], [id number], [place] tel:[phone] [facility] No Information 1-200 9 Anthony Sawant. [address] [facility] , [address], [place], [place], [facility], . tel:[phone] [facility], [address], [place], [place], [id number], tel:[phone] [facility] No Information 1 9 [facility] . [address] [facility], [address], [place], [place], [id number], [place]. tel:[phone] Referring Provider: Jese Basurto, [address], [place], [address]. tel:[phone] hawthorne Provider: Awilda Vences, [address] [place] [address] [address], [place], [address]. tel:[phone] Family History Family Member Type Diagnosis Age At Onset No Information Payers Payer name Insurance type Covered libertarian ID Authoriza tion(s) [place] [id number] For Life Mdcr Supp [id number] Social History Type Description Quantity Date Captured [...]
--- OUTSIDE RECORDS SUMMARY | 2024-09-30 11:36 | XMS_ITS | Referral Summary ---
Author Organization [facility] [address] [place] [address] 162 Address [address] [place] [address] Care Team Providers Care Senior Qualitative Researcher Name Role Phone Clayton Corley NP Primary Care Provider [phone] Encounters Date Type Department Care Team Description 08/26/2024 11:00 AM CDT Office Visit [facility] Cardiology [address] [facility] [address] [place] [address] Jennifer Juares NP Coronary artery disease involving alt[place] coronary artery of alt[place] heart without angina pectoris (Primary Dx); S/P coronary artery stent placement; Mild aortic stenosis; Essential hypertension from Last 3 Months Allergies Active Allergy [...] hypertension Hypercholesterolemia 03/10/2015 Overview (07/25/2016): Hypercholesterolemia Immunizations Immunization Administration Dates Next Due Influenza, [...] on file Legal Sex 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
--- OUTSIDE RECORDS SUMMARY | 2024-09-30 11:40 | XMS_ITS | Continuity of Care Document ---
Author Organization [facility] Address [address] [place] [address] Phone Care Team Providers Care Medication Nurse Name Role Phone Jese Cruz Unavailable Unavailable Procedures Procedure Date Eye Exam & Treatment Refraction Eye Exam, New Patient No Script Refraction Vision Svcs Frames Purchases Lens-Index 1.54-1.79 Glass Special Base Curve Advance Directives Directive Yes / No Effective Date File Name No Information Encounters Encounter Description Practice Location Reason(s) For Visit Diagnoses Date Provider Providers Copied on Encounter [facility], [address] [place] [address] [address], [place], [place], [id number], tel:[phone] SEC [facility] No Information 8-201 0 Anthony Sawant. [address] [facility] , [address], [place], [place], [facility], . tel:[phone] [facility], [address] [place] [address] [address], [place], [place], [address], [place] tel:[phone] [facility] No Information 1-200 9 Anthony Sawant. [address] [facility] , [address], [place], [place], [facility], . tel:[phone] [facility], [address], [place], [place], [id number], tel:[phone] [facility] No Information 1 9 [employer] . [address] [facility], [address], [place], [place], [address], [place]. tel:[phone] Referring Provider: Jese Basurto, [address], [place], [address]. tel:[phone] hawthorne Provider: Awilda Vences, [address] [place] [address] [address], [place], [address]. tel:[phone] Family History Family Member Type Diagnosis Age At Onset No Information Payers Payer name Insurance type Covered republican ID Authoriza tion(s) Medicare [place] [id number] For Life Mdcr Supp CI [id number] Social History Type Description Quantity Date Captured [...]
--- NOTE | 2024-09-30 11:54 | ED.WEAKNESS ---
HPI - Weakness General Chief complaint: Weakness Stated complaint: shaky, can't walk Time Seen by Provider: 09/30/24 10:42 Source: patient Mode of arrival: ambulatory Limitations: no limitations History of Present Illness HPI Narrative: Patient is an 84-year-old female who presents to the ED with report of weakness/shakiness. Patient reports she woke up this morning and felt very weak and shaky. States she typically does not have issues ambulating, but had to use her walker today. [place] weak in her legs. Denies focal numbness or weakness. Denies any fall. Family at bedside reports that patient was complaining of some weakness on Friday as well. They states she was slightly confused that day, could not remember how old her children were, how many years she had been , was attempting to show her family the same picture several times. Patient denies dizziness, lightheadedness, vision changes, headache, chest pain, shortness breath, cough or cold symptoms. Family notes that patient does not eat or drink much. Related Data Home Medications ?Medication ?Instructions ?Recorded ?Confirmed ?Last Taken ?Type aspirin 325 mg tablet 325 mg PO DAILY 12/02/19 09/09/24 Unknown History cholecalciferol (vitamin D3) 25 25 mcg PO DAILY 12/02/19 09/09/24 Unknown History mcg (1,000 unit) tablet Allergies Allergy/AdvReac Type Severity Reaction Status Date / Time amoxicillin Allergy Mild RASH Verified 09/30/24 10:50 Penicillins Allergy Mild hives Verified 09/30/24 10:50 Review of Systems Review of Systems: All systems reviewed & are unremarkable except as noted in HPI. All systems reviewed & are unremarkable except as noted in HPI and below PMFSH Past Medical History Medical History BMI 20.0-20.9, adult Heart disease Thyroid disorder Vitamin D deficiency Hypothyroidism Dyslipidemia Hypertension Coronary artery disease Surgical History Surgical History History of appendectomy History of arthroscopic knee surgery History of heart artery stent Family History Family History Sibling Patient's sister is in good health Mother Family history of malignant neoplasm of breast in first degree relative Breast cancer Hypertension Cerebrovascular accident Father Family history of coronary artery disease Heart problem Other Colon cancer Social History Social History Social History: Surrogate medical decision maker: Emilia Pedraza, daughter. Code status: Full code. She would not want to be on life support longer than 2.5 days. Smoking packs per day: 1 Smoking cigarettes per day: 20.0 Years smoked: 64 Smoking pack-years: 64.00 Smoking status: Current every day smoker Tobacco type: cigarettes Second hand tobacco smoke exposure: No Alcohol intake: never Substance use: never Substance use type: does not use Do You Feel Safe in your Home?: Yes Lack of Transportation: No Lack of Food: Never True Current Housing: I Have Housing Concerned About Future Housing: No Difficulty Paying Gas/Electric Bills: No Difficulty Paying for Meds: No Currently Unemployed: No Education: Associate Degree Difficulty w/ Childcare or Family Care: No Living arrangements: alone Additional living arrangements comments: as of January 2022. Lives alone in [place] with her dog. 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 HEAD: Normocephalic, atraumatic. EYES: PERRL/EOMI, conjunctivae clear bilaterally. No nystagmus. NECK: Supple. No meningeal signs. RESPIRATORY: Airway patent, respirations nonlabored. Clear to auscultation bilaterally, no rales, rhonchi, wheezing. CARDIOVASCULAR: Regular rate and rhythm without murmurs, rubs, or gallops. Radial pulses 2+ and equal bilaterally. MUSCULOSKELETAL: Moves all extremities. No gross deformities. SKIN: Warm, dry, normal color. No rashes. NEURO: A&O X3. Speech clear. Follows commands. CN II-XII grossly intact. Sensation grossly intact. Patient slightly tremulous in BUE. Strength equal in upper and lower extremities bilaterally. Lyay-sh-lpmv and jjzxjm-td-ghpx testing intact bilaterally, possibly slightly more uncoordinated on L arm, though difficult to evaluate as patient very tremulous. No pronator drift. Equal primary clinician strength bilaterally. PSYCHIATRIC: Appropriate mood and affect. Normal interaction. Course Vital Signs Vital signs: Vital Signs Temperature 97.4 F L 09/30/24 10:44 Pulse Rate 83 09/30/24 10:44 Respiratory Rate 17 09/30/24 10:44 Blood Pressure 138/72 09/30/24 10:44 Pulse Oximetry 100 09/30/24 10:44 Oxygen Delivery Room Air 09/30/24 10:44 Temperature 98 F 09/30/24 12:14 Pulse Rate 70 09/30/24 14:00 Respiratory Rate 12 09/30/24 14:00 Blood Pressure 128/72 09/30/24 14:00 Pulse Oximetry 100 09/30/24 14:00 Oxygen Delivery Room Air 09/30/24 10:44 MDM - Weakness MDM Narrative Medical decision making narrative: Patient presented to ED with diffuse weakness/shakiness. Vital signs are stable upon arrival. Patient in no acute distress. She overall is grossly neurologically intact. Tremulous in her upper extremities. No appreciable focal deficits. Equal primary clinician strength bilaterally. Orthostatic vital signs were evaluated and positive with drop in blood pressure. Will initiate fluids. Patient does admit to decreased p.o. intake. Cbc without leukocytosis. Likely hemoconcentrated. CMP with stable electrolytes. Slight RAMO. Creatinine baseline around 0.6-0.8. Today 1.02. Will initiate fluids. Blood sugar stable. UA without signs of infection. Viral swabs are negative. EKG without concerning ischemic changes. Troponin undetectable. Chest x-ray clear. CT brain with age-related changes, no acute findings. Overall workup non revealing/reassuring. Patient feeling much better after eating lunch and fluid administration. Shakiness is nearly resolved. She states she is ready to go home. She feels comfortable going home. Family is in agreement. Recommended close follow-up with PCP for further evaluation, advised patient to stay well hydrated at home. Given strict return precautions. She agrees with plan. Discharged in stable condition. Medical Records Attestation: I reviewed the patient's medical records. Lab Data Attestation: I reviewed the patient's lab results. 09/30/24 10:58 09/30/24 10:58 Labs: Lab Results 09/30/24 09/30/24 09/30/24 Range/Units 10:50 10:58 12:18 WBC 6.4 (4.5-10.0) K/mm3 RBC 5.38 (4.2-5.4) M/mm3 Hgb 15.1 H (12.0-15.0) g/dL Hct 47.4 H (37.0-47.0) % MCV 88.1 (80-100) fl MCH 28.1 (26-34) pg MCHC 31.9 L (32-36) g/dl RDW 14.2 (11.5-14.5) % Plt Count 177 (150-375) k/mm3 MPV 10.9 H (7.4-10.4) fl Immature Gran % (Auto) 0.5 (0-0.5) % Neut % (Auto) 64.4 (45.5-73.1) % Lymph % (Auto) 26.9 (18.3-44.2) % [place] % (Auto) 6.2 (2.6-8.5) % Eos % (Auto) 1.1 (0-4.4) % Baso % (Auto) 0.9 (0.2-1.2) % Lymph # (Auto) 1.73 (0.9-3.2) K/mm3 [place] # (Auto) 0.4 (0.1-0.6) K/mm3 Eos # (Auto) 0.1 (0-0.3) K/mm3 Baso # (Auto) 0.1 (0.0-0.1) K/mm3 Abs Immat Gran (auto) 0.03 (0.00-0.031) K/mm3 Absolute Neuts (auto) 4.2 (1.3-6.7) K/mm3 Absolute Nucleated RBC 0.000 (0.0-0.012) K/mm3 Nucleated RBC % 0.0 (0.0-0.2) % Sodium 137 (137-145) mmol/L Potassium 3.8 (3.4-5.0) mmol/L Chloride 105 (98-107) mmol/L Carbon Dioxide 24 (22-30) mmol/L Anion Gap 8 (4-12) mmol/L BUN 16 (7-17) mg/dL Creatinine 1.02 H (0.7-1.0) mg/dL Estim Creat Clear Calc 31 ml/min Estimated GFR 51 L (59 - ) Glucose 121 H (65-110) mg/dL POC Capillary Glucose 124 H (65-105) mg/dl Calcium 10.0 (8.4-10.2) mg/dL Magnesium 2.2 (1.6-2.3) mg/dL Total Bilirubin 0.8 (0.2-1.3) mg/dL AST 41 H (14-36) U/L ALT 34 (6-35) U/L Alkaline Phosphatase 98 (38-126) U/L Troponin I < 0.012 (0.000-0.034) ng/mL Total Protein 7.6 (6.3-8.2) g/dL Albumin 4.4 (3.5-5.1) g/dL Urine Color Yellow (Yellow) Urine Appearance Cloudy H (Clear) Urine pH 6.0 (5.0-9.0) Ur Specific [place] 1.022 (1.001-1.035) Urine Protein Negative (Negative) mg/dL Urine Glucose (UA) Negative (Negative) mg/dL Urine Ketones Negative (Negative) mg/dL Ur Blood (Man) Negative (Negative) Urine Nitrate Negative (Negative) Urine Bilirubin Negative (Negative) Urine Urobilinogen 0.2 (<2.0) mg/dL Leukocyte Esterase Rfl Negative (Negative) STEF/UL Urine RBC 0-2 (0-2) /hpf Urine WBC 0-5 (0-3) /hpf Ur Squamous Epith Cells Many H (Few) /hpf Urine Bacteria None seen /hpf Urine Casts 0-2 Influenza A (RT-PCR) Negative (Negative) Influenza B (RT-PCR) Negative (Negative) RSV (RT-PCR) Negative (Negative) SARS-CoV-2 RNA (RT-PCR) Negative (Negative) Imaging Data Attestation: I personally reviewed and interpreted this imaging study as follows: Radiologist's impression: ITS Impressions Chest X-Ray 09/30/24 12:13 IMPRESSION: 1: NO ACUTE CARDIOPULMONARY DISEASE. Head CT 09/30/24 12:26 IMPRESSION: 1. No acute intracranial process. 2. Mild scattered white matter hypoattenuation consistent with chronic small vessel ischemic disease. ECG Data EKG #1: Attestation: I personally reviewed and interpreted this ECG as follows: ECG completion date: 09/30/24 ECG completion time: 10:55 Prior ECG tracings: available for review (no significant change from previous) EKG Interpretation: normal rate (79), sinus rhythm and no ST changes Discharge Plan Discharge Clinical Impression: Shakiness, Generalized weakness, Dehydration Patient Disposition: Home Condition: Stable Instructions: Antibiotic Form, Dehydration (ED), Weakness (ED) Additional Instructions: Your workup here was reassuring. Your lab work did show evidence of dehydration. Increase fluid intake at home. Recommend electrolyte rich fluids, Gatorade, Pedialyte, body armor. Follow-up closely with your primary care doctor for further evaluation. Return to the ED if you experience worsening or severe weakness, numbness or weakness of one-sided arm or leg, severe dizziness/ lightheadedness, unable to keep down food or drink, chest pain, difficulty breathing, or any other symptoms of concern. Patient Language: Luxembourgish Prescriptions: No Action aspirin 325 mg tablet 325 mg PO DAILY cholecalciferol (vitamin D3) 25 mcg (1,000 unit) tablet 25 mcg PO DAILY atorvastatin 80 mg tablet 80 mg PO HS Qty: 90 1RF ezetimibe 10 mg tablet 10 mg PO HS Qty: 90 1RF hydralazine 50 mg tablet 100 mg PO BID Qty: 360 3RF levothyroxine 75 mcg tablet 75 mcg PO DAILY Qty: 90 1RF metoprolol succinate 25 mg tablet extended release 24 hr See Rx Instructions .ROUTE .COMPLEX Qty: 90 1RF Dose Instruction: TAKE 1 TABLET BY MOUTH DAILY Rx Instructions: TAKE 1 TABLET BY MOUTH DAILY lisinopril 40 mg tablet 40 mg PO DAILY Qty: 90 1RF Follow-up/Referrals: Clayton Corley APRN [Primary Care Provider] - Time of Disposition: 14:22
[2024-09-30 12:21] LABS: Magnesium 2.2 mg/dL (1.6-2.3)
[2024-09-30] MEDS: SODIUM CHLORIDE 0.9% IV 1,000 ML 999 ML IV CONT (12:33)
[2024-09-30 12:34] LABS: Troponin I < 0.012 ng/mL (0.000-0.034)
[2024-09-30 12:50] LABS: Add Urine Microscopic? YES; Appearance Urine Cloudy (Clear); Bacteria Urine None Seen /hpf; Bilirubin Urine Negative (Negative); Blood Urine Negative (Negative); Color Urine Yellow (Yellow); Glucose Urine UA Negative (Negative); Ketones Urine Negative (Negative); Leukocyte Esterase Ur Negative LEU/UL (Negative); Nitrate Urine Negative (Negative); Non Pathogenic Casts 0-2; Protein Urine Negative (Negative); RBC Urine 0-2 /hpf (0-2); Specific Grav Ur 1.022 (1.001-1.035); Squamous Epithelial Cell Urine Many /hpf (Few); Urobilinogen Urine 0.2 mg/dL (<2.0); WBC Urine 0-5 /hpf (0-3)
[2024-09-30 13:03] LABS: Influenza A QL RT-PCR Negative (Negative); Influenza B QL RT-PCR Negative (Negative); RSV RNA, RT-PCR Negative (Negative); SARS-CoV-2 RNA PCR Negative (Negative)
== END 2024-09-30 14:56 | disposition home or self-care (01) ==
PROVIDERS: Emergency Provider Physician Assistant; PCP Nurse Practitioner
DX: E86.0 Dehydration (principal); R53.1 Weakness; R25.8 Other abnormal involuntary movements; Z20.822 Contact with and (suspected) exposure to COVID-19; I11.9 Hypertensive heart disease without heart failure; I25.10 Atherosclerotic heart disease of native coronary artery without angina pectoris; E55.9 Vitamin D deficiency, unspecified; E03.9 Hypothyroidism, unspecified; E78.5 Hyperlipidemia, unspecified; F17.210 Nicotine dependence, cigarettes, uncomplicated; Z95.5 Presence of coronary angioplasty implant and graft; Z79.82 Long term (current) use of aspirin; Z79.899 Other long term (current) drug therapy
CPT/HCPCS: 36415; 70450; 71046; 80053; 81001; 82948; 83735; 84484; 85025; 87637; 93005; 96360; 99284; J7030

== ENCOUNTER 2024-11-08 13:58 | Inpatient (IN) | payer MEDICARE, OTHER, SELFPAY ==
[2024-11-08] VITALS (10 sets, daily range): BP systolic 131–168; BP diastolic 77–87; PULSE 64–81; RESP 14–18; TEMP 36.2–36.6; O2SAT 97–100; BMI 20.2
--- NOTE | ~2024-11-08 | CT_ITS ---
EXAMINATION: CT chest abdomen pelvis w con DATE: 11/08/2024 19:39 INDICATION: generalized weakness behavior change . TECHNIQUE: Computed tomography (CT) of the chest, abdomen, and pelvis was performed with 100 mL Omnip aque-350 intravenous contrast. Automated exposure control and iterative reconstruction technique were employed. The dose-length product was 361.19 mGy-cm. COMPARISON: X-ray chest, same date; [facility]PA 05/20/2022 FINDINGS: CHEST: Thoracic aorta: Borderline ectasia of the ascending thoracic aorta. Moderate atherosclerotic calcific ation. No dissection. Lung parenchyma and airways: Mild emphysematous change. Minimal dependent atelectasis/scar. Biapical pleural scarring. Patent airways. Calcified right upper lobe granuloma. Small focus of tree-in-bud op acities in the peripheral and posterior right upper lobe. 6 mm spiculated lesion in the lingula (axia l 71/135), stable since the comparison study of 2022. Thoracic inlet, axillae and chest wall: No thyroid or soft tissue mass. No axillary lymphadenopathy. Mediastinum: No mass or lymphadenopathy. Heart and pericardium: Normal heart size. No pericardial effusion. Coronary artery calcifications: Mild. Pleura: No effusion or mass. Thoracic bones: No acute osseous finding in the chest. ABDOMEN/PELVIS: Liver: Multiple hemangiomas measuring up to 3.9 cm. Diffusely low-density parenchyma. Biliary/Gallbladder: Gallbladder is normal. No bile duct dilation. Pancreas: No mass or duct dilation. Spleen: Normal. Adrenals:No mass. Kidneys: Normal right kidney. Simple left lower pole cyst. 1.3 cm indeterminate density exophytic lef t midpole renal lesion. Multiple additional subcentimeter hypodensities on the left, too small to joshua racterize but most likely represent cysts. GI tract: Moderate distal esophageal and gastric wall edema. No small or large bowel dilation. Append ix not confidently identified. Diverticulosis without diverticulitis. Mesentery/Peritoneum: No ascites, mass, or free air. Retroperitoneum: No mass Atherosclerotic calcifications of intra-abdominal arterial vessels. Pelvis: Mild urinary bladder wall thickening and edema. Normal uterus and bilateral ovaries. Soft Tissues: Soft tissues and body wall unremarkable. Abdominopelvic bones: No acute osseous finding in the abdomen/pelvis. IMPRESSION: Small focus of tree-in-bud opacities in the right upper lobe may represent a small focus of atypical infection or aspiration. Stable 6 cm lingular nodule. Moderate esophagitis/gastritis. Multiple hepatic hemangiomas. Hepatic steatosis. Indeterminate density left renal lesion, consider nonemergent CT or MRI without and with contrast for further characterization. Bladder wall thickening and edema as can be seen with cystitis. Reviewed, dictated and finalized at location K. IMPRESSION: Small focus of tree-in-bud opacities in the right upper lobe may represent a sm all focus of atypical infection or aspiration. Stable 6 cm lingular nodule. Moderate esophagitis/gastritis. Multiple hepatic hemangiomas. Hepatic steatosis. Indeterminate density left renal lesion, consider nonemergent CT or MRI without and with contrast for further characterization. Bladder wall thickening and edema as can be seen with cystitis.
--- NOTE | ~2024-11-08 | XR_ITS ---
EXAMINATION: XR chest 2V Exam Date/Time: 11/08/2024 17:30 CDT HISTORY: ams, generalized weakness Comparison: 09/30/2024. RESULT: Lines, tubes, and devices: None. Lungs and pleura: No focal consolidation, pleural effusion, or pneumothorax. Biapical pleural scarri ng. Emphysematous change. Cardiomediastinal silhouette: Stable. Other: No acute osseous or upper abdominal finding. IMPRESSION: No acute cardiopulmonary process. Reviewed, dictated and finalized at location K.
--- NOTE | ~2024-11-08 | CT_ITS ---
EXAMINATION: CT brain wo con DATE: 11/08/2024 17:54 INDICATION: ams, generalized weakness . TECHNIQUE: Computed tomography (CT) of the head was performed without intravenous contrast. The mA wa s adjusted according to patient size. Iterative reconstruction technique was employed. The dose-lengt h product was 605.33 mGy-cm. COMPARISON: 09/30/2024. FINDINGS: No acute intracranial hemorrhage or extra-axial fluid collection. No hydrocephalus, mass, or herniation. No acute ischemic infarct. Unremarkable dural venous sinus attenuation. No acute osseous abnormality. Trace left mastoid fluid, the remaining aerated spaces are clear. Mild atrophy and chronic white matter change. Atherosclerotic intracranial calcification. Bilateral l ens replacements. IMPRESSION: No acute intracranial process. Reviewed, dictated and finalized at location K.
--- NOTE | ~2024-11-08 | CT_ITS ---
EXAMINATION: CT cervical spine wo con DATE: 11/08/2024 17:54 INDICATION: ams, gen weakness TECHNIQUE: Computed tomography (CT) of the cervical spine was performed without intravenous contrast. Automated exposure control and iterative reconstruction technique were employed. The dose-length pro duct was 142.21 mGy-cm. COMPARISON: None. FINDINGS: Vertebral Body Alignment: Intact. Craniocervical and atlantoaxial alignment: Moderate degenerative change with pannus. Alignment intact . Osseous structures/fracture: No evidence of a lytic or blastic process in the visualized spine. No e vidence of acute fracture. Cervical soft tissues: The paraspinal soft tissues planes are maintained. Moderate biapical pleural s carring. Degenerative changes: Degenerative changes, without severe neural foraminal or central canal narrowin g. IMPRESSION: No acute fracture or traumatic malalignment in the cervical spine. Reviewed, dictated and finalized at location K.
--- OUTSIDE RECORDS SUMMARY | 2024-11-08 14:00 | XMS_ITS | Clinical Summary ---
Author Organization [facility] [employer] Address [address] [place] [address] Care Team Providers Care Catalyst Plant Supervisor Name Role Phone Suhail Crump MD Primary Care Provider [phone] Norman Garcia MD Unavailable [phone] Source Comments [facility]ates and Associated Physician Practices is amultiple site organization consisting of ambulatory clinics and hospital sitesin [place], [place], [place] and [place]. This disclosure is being madepursuant to the Care Everywhere program and may not contain all information available regarding this patient. 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 Gender Identity Not on file Sexual Orientation Not on file Last Filed Vital Signs Vital Sign Reading Time Taken Comments Blood Pressure 132/70 10/19/2014 10:56 AM CDT Pulse 80 03/04/2014 2:29 PM BRAKES INSPECTOR Temperature - - Respiratory Rate - - [...] season) 2023 DEPRESSION SCREENING 04/21/2024 INFLUENZA VACCINE (#1) 2024 3, 01/15/2012, 12/27/2010, Additional history exists BONE DENSITY [...] tobacco Lifestyle No Radha Suggs MA Insurance [facility] MEDICARE Care Teams Catalyst Plant Supervisor Relationship Specialty Start Date End Date Suhail Crump MD [address] [address] PCP - General 09/16/08 Norman Garcia MD [address] [address] Cardiology 06/09/13
--- OUTSIDE RECORDS SUMMARY | 2024-11-08 14:00 | XMS_ITS | Referral Summary ---
Author Organization [facility] [address] [place] [address] 162 [address] [place] [address] Care Team Providers Care Group Work Program Aide Name Role Phone Clayton Corley NP Primary Care Provider [phone] Encounters Date Type Department Care Team Description 08/26/2024 11:00 AM CDT Office Visit [facility] Medical [facility] Cardiology [address] [facility] [address] [place] [address] Jennifer Juares NP Coronary artery disease involving [place] coronary artery of [place] heart without angina pectoris (Primary Dx); S/P [...] on file 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
--- OUTSIDE RECORDS SUMMARY | 2024-11-08 14:00 | XMS_ITS | Clinical Summary ---
Author Organization [facility] [address] Address [address] [place] [address] Care Team Providers Care Event Coordinator Name Role Phone Clayton Corley NP Primary Care Provider [phone] Allergies Active Allergy Reactions Criticality Noted Date [...] Description 08/26/2024 11:00 AM CDT Office Visit [facility] Medical [facility] Cardiology [address] [place] [address] Jennifer Juares NP Coronary artery disease involving [place] coronary artery of [place] heart without angina pectoris (Primary Dx); S/P [...] on file 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 Gender Identity Not on file Sexual Orientation [...] Depression Screening 1938 Fall Risk Assessment 1938 Osteoporosis Screening-Bone Density Scan 1938 DTaP/Tdap/Td Vaccine (1 - Tdap) 1949 Hepatitis B Screening 01/17/1956 Zoster Vaccine (1 of 2) 01/17/1988 Well Visit 65+ 2003 Pneumococcal vaccine 65+ (2 of 2 - PCV) 02/19/2009 02/20/2008 Influenza Vaccine (Season Ended) 2024 01/09/2018, 01/31/2016, 03/10/2015, Additional history exists Insurance MEDICARE [facility] Address: [address] [address] [place] [address] [facility] [employer] LIFE MEDICARE [facility] Address: [address] [address] [place] [address] FOR LIFE Care Teams Event Coordinator Relationship Specialty Start Date End Date Clayton Corley NP [address] [place] [address] PCP - General Nurse Practitioner 08/26/24
--- OUTSIDE RECORDS SUMMARY | 2024-11-08 14:00 | XMS_ITS | Continuity of Care Document ---
Author Organization [facility] Address [address] [place] [address] Phone Care Team Providers Care Home Fire Alarm Installer Name Role Phone Jese Cruz Unavailable Unavailable Procedures Procedure Date Eye Exam & Treatment Refraction Eye Exam, New Patient No Script Refraction Vision Svcs Frames Purchases Lens-Index 1.54-1.79 Glass Special Base Curve Advance Directives Directive Yes / No Effective Date File Name No Information Encounters Encounter Description Practice Location Reason(s) For Visit Diagnoses Date Provider Providers Copied on Encounter [facility], [address] [place] [address] [address], [place], [place], [id number], tel:[phone] [address] [facility] No Information 8-201 0 Anthony Sawant. [address] [facility] , [address], [place], [place], [facility], . tel:[phone] [facility], [address] [place] [address] [address], [place], [place], [address], [place] tel:[phone] [facility] No Information 1-200 9 Anthony Sawant. [address] [facility] , [address], [place], [place], [facility], . tel:[phone] [facility], [address], [place], [place], [address], tel:[phone] [facility] No Information 1 9 [employer] . [address] [facility], [address], [place], [place], [address], [place]. tel:[phone] Referring Provider: Jese Basurto, [address], [place], [address]. tel:[phone] hawthorne Provider: Awilda Vences, [address] [place] [address] [address] [place], [place], [address]. tel:[phone] Family History Family Member Type Diagnosis Age At Onset No Information Payers Payer name Insurance type Covered libertarian ID Authoriza tion(s) Medicare [place] MB [id number] For Life Mdcr Supp CI [id number] Social History Type Description Quantity Date Captured [...]
--- OUTSIDE RECORDS SUMMARY | 2024-11-08 16:28 | XMS_ITS | Clinical Summary ---
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
--- OUTSIDE RECORDS SUMMARY | 2024-11-08 16:28 | XMS_ITS | Referral Summary ---
Author Organization [facility] [place] [address] [place] [address] [address] [place] [address] Care Team Providers Care Technical Maintenance Technician Name Role Phone Clayton Corley NP Primary Care Provider [phone] Encounters Date Type Department Care Team Description 08/26/2024 11:00 AM CDT Office Visit [facility] Cardiology [address] [facility] [address] [place] [address] Jennifer Juares NP Coronary artery disease involving hughes coronary artery of hughes heart without angina pectoris (Primary Dx); S/P [...] on file 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
--- OUTSIDE RECORDS SUMMARY | 2024-11-08 16:28 | XMS_ITS | Continuity of Care Document ---
Author Organization [facility] [address] [place] [address] Phone Care Team Providers Care Dental Assistant Instructor Name Role Phone Jese Cruz Unavailable Unavailable Procedures Procedure Date Eye Exam & Treatment Refraction Eye Exam, New Patient No Script Refraction Vision Svcs Frames Purchases Lens-Index 1.54-1.79 Glass Special Base Curve Advance Directives Directive Yes / No Effective Date File Name No Information Encounters Encounter Description Practice Location Reason(s) For Visit Diagnoses Date Provider Providers Copied on Encounter [facility], [address] [place] [address] [address], [place], [place], [id number], tel:[phone] [facility] No Information 8-201 0 Anthony Sawant. [address] [facility] [address] , [address], [place], [place], [facility], . tel:[phone] [facility], [address] [place] [address] [address], [place], [place], [id number], [place] tel:[phone] [facility] No Information 1-200 9 Anthony Sawant. [address] [facility] [address] , [address], [place], [place], [facility], . tel:[phone] [facility], [address], [place], [place], [id number], tel:[phone] [facility] No Information 1 9 [facility] . [address] [facility], [address], [place], [place], [id number], [place]. tel:[phone] Referring Provider: Jese Basurto, [address], [place], [address]. tel:[phone] hawthorne Provider: Awilda Vences, [address] [place] [address] [employer] [place], [place], [address]. tel:[phone] Family History Family Member Type Diagnosis Age At Onset No Information Payers Payer name Insurance type Covered green party ID Authoriza tion(s) [place] [id number] For Life Mdcr Supp CI [id number] Social History Type Description Quantity Date Captured [...]
--- OUTSIDE RECORDS SUMMARY | 2024-11-08 16:28 | XMS_ITS | Clinical Summary ---
Author Organization [facility] Address [address] [place] [address] Care Team Providers Care Yard Pilot Name Role Phone Suhail Crump MD Primary Care Provider [phone] Norman Garcia MD Unavailable [phone] Source Comments [facility] Affiliates and Associated Physician Practices is amultiple site organization consisting of ambulatory clinics and hospital sitesin [place], [place], [place] and [place]. This disclosure is being madepursuant to the Care Everywhere program and may not contain all information available regarding this patient. 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
--- NOTE | 2024-11-08 16:52 | ECG_ITS ---
Test Date: 2024-11-08 17:03:38 Measurements Intervals [place] Rate: 71 P: 65 AR: 158 QRS: -57 QRSD: 79 T: 52 QT: 368 QTc: 401 Interpretive Statements SINUS RHYTHM POSSIBLE LEFT ATRIAL ENLARGEMENT [-0.1mV P-WAVE IN V1/V2] LOW QRS VOLTAGE IN EXTREMITY LEADS [QRS DEFLECTION < 0.5 mV IN LIMB LEADS] LEFT ANTERIOR FASCICULAR BLOCK [QRS AXIS <= -45, QR IN I, RS IN II] Compared to ECG 09/30/2024 10:55:35 NO SIGNIFICANT CHANGES Electronically Signed On 11-09-2024 16:33:29 CDT by Peewee Webb M.D.
--- NOTE | 2024-11-08 17:22 | ED_ITS ---
HPI - Weakness General Chief complaint: Weakness Stated complaint: generalized weakness Time Seen by Provider: 11/08/24 16:12 Source: patient and family (Daughters) History of Present Illness HPI Narrative: Patient (who goes by Camila) presents with family members were concerned that she has generalized weakness that has been progressively worsening for approximately 1 week. She is a known this is concerned. Patient denies any chest pain abdominal pain or headache. She denies any diarrhea. She notes that she is occasionally a cough but denies any underlying respiratory conditions. She does smoke 1/2 pack per day cigarettes. She has had decreased p.o. intake an appetite. Denies any slurred speech or unilateral symptoms. Patient has displayed unusual behaviors which are not like her. For example she turned her cigarette the wrong way to smoke it, she also turned her of an even though she was not cooking anything. She also asked her daughters if there is she is cheese in [facility] as she did not know how to make it any longer. Daughter notes that when she talked to her few days ago from she did not sound right. She sounded weak and tired. Daughter asked the family members check on her. The patient did attend a family event yesterday multiple family members commented that she was not acting like herself as she was spilling food. At baseline patient wears a brief for occasional urinary accidents however she has not been getting up to go to the bathroom lately given her generalized weakness and so she is therefore filling these briefs. Daughter notes that she talked for 1 point she had commented that she was having some pain in her right back. She states this is no longer present. History of CAD, hypertension and hypothyroidism the family is not sure if she has been taking her medication. Related Data Home Medications ?Medication ?Instructions ?Recorded ?Confirmed ?Last Taken ?Type aspirin 325 mg tablet 325 mg PO DAILY 12/02/19 11/01/24 Unknown History cholecalciferol (vitamin D3) 25 25 mcg PO DAILY 12/02/19 11/01/24 Unknown History mcg (1,000 unit) tablet Allergies Allergy/AdvReac Type Severity Reaction Status Date / Time amoxicillin Allergy Mild RASH Verified 11/01/24 09:03 Penicillins Allergy Mild hives Verified 11/01/24 09:03 [facility] Past Medical History Medical History BMI 20.0-20.9, adult Heart disease Thyroid disorder Vitamin D deficiency Hypothyroidism Dyslipidemia Hypertension Coronary artery disease Surgical History Surgical History History of appendectomy History of arthroscopic knee surgery History of heart artery stent Family History Family History Sibling Patient's sister is in good health Mother Family history of malignant neoplasm of breast in first degree relative Breast cancer Hypertension Cerebrovascular accident Father Family history of coronary artery disease Heart problem Other Colon cancer Social History Social History Social History: Surrogate medical decision maker: Emilia Pedraza, daughter. Code status: DNR per discussion with her with family at bedside (she states she has this in writing in a living will) Smoking packs per day: 1 Smoking cigarettes per day: 20.0 Years smoked: 64 Smoking pack-years: 64.00 Smoking status: Current every day smoker Tobacco type: cigarettes Second hand tobacco smoke exposure: No Alcohol intake: never Substance use: never Substance use type: does not use Do You Feel Safe in your Home?: Yes Lack of Transportation: No Lack of Food: Never True Current Housing: I Have Housing Concerned About Future Housing: No Difficulty Paying Gas/Electric Bills: No Difficulty Paying for Meds: No Currently Unemployed: No Education: Associate Degree Difficulty w/ Childcare or Family Care: No Living arrangements: alone Additional living arrangements comments: as of January 2022. Lives alone in [place] with her dog. 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 HEAD: Normocephalic, atraumatic. EYES: Non injected, non icteric ENT: Nares clear, no rhinorrhea or epistaxis. Gross auditory acuity intact. Mildly tacky mucous membranes. NECK: Supple. No meningismus. CHEST: Speaking in full sentences. No respiratory distress. Lungs clear to auscultation bilaterally without appreciable wheezes or crackles. HEART: Regular rate and rhythm. . ABDOMEN: Soft, nondistended. No rigidity or guarding. Not peritoneal. No tenderness to palpation throughout EXTREMITIES: Normal range of motion. She is able to demonstrate the ability to move her arms and her legs including moving her legs against resistance. No lower extremity edema. SKIN: Warm, dry, no rash. NEURO: No focal deficits. Alert and oriented. Answering questions though at times seems confused. Following commands. Normal speech without aphasia or dysarthria. PSYCH: Normal mood and affect. Course Vital Signs Vital signs: Vital Signs Temperature 97.9 F 11/08/24 14:02 Pulse Rate 81 11/08/24 14:02 Respiratory Rate 16 11/08/24 14:02 Blood Pressure 131/77 11/08/24 14:02 Pulse Oximetry 98 11/08/24 14:02 Oxygen Delivery Room Air 11/08/24 14:02 Temperature 97.9 F 11/08/24 14:02 Pulse Rate 78 11/08/24 14:29 Respiratory Rate 16 11/08/24 14:29 Blood Pressure 131/85 11/08/24 14:29 Pulse Oximetry 99 11/08/24 14:29 Oxygen Delivery Room Air 11/08/24 14:29 MDM - Weakness MDM Narrative Medical decision making narrative: Patient presents with her daughters. She is displayed increasing generalized weakness and confusion with behavior changes for the past 1 week. In the emergency department they are afebrile with vital signs within normal limits. Troponin normal. The patient has worsening creatinine consistent with an RAMO. 1 L IV fluids ordered. CPK mildly elevated, though not to a degree to suggest rhabdomyolysis. Patient has a marked urinary tract infection. Previous urine culture from several years ago showed no growth. Will start with ceftriaxone. TSH markedly elevated >100; T4 and T3 ordered. T4 is negligible nearly. T3 as well. Will treat with levothyroxine (4mcg/kg =225mcg ) IV as well as dexamethasone. Questionable R back pain concerning for possible pyelo although she notes it was transient. Spoke with pharmacy to confirm orders. Questionable infection seen on CT imaging in lung, she had stated she had a bit of a cough so In addition to ceftriaxone already received, will add azithromycin for atypical coverage. I discussed patient earlier in the evening with on-call hospitalist Dr. Ortega who accepted admission provided no surgical issue. Admission orders will be placed. Patient confirms DNR code status. Differential Diagnosis Differential diagnosis: Likely acute myocardial infarction, anemia, hypoglycemia, hypothyroidism, rhabdomyolysis, sepsis, dehydration and other (infection) Lab Data Attestation: I reviewed the patient's lab results. Lab results narrative: CBC generally unremarkable except for mild abnormalities on the differential 11/08/24 17:19 11/08/24 17:19 Labs: Lab Results 11/08/24 11/08/24 11/08/24 Range/Units 17:19 17:19 17:19 WBC 9.5 (4.5-10.0) K/mm3 RBC 4.94 (4.2-5.4) M/mm3 Hgb 14.3 (12.0-15.0) g/dL Hct 44.5 (37.0-47.0) % MCV 90.1 (80-100) fl MCH 28.9 (26-34) pg MCHC 32.1 (32-36) g/dl RDW 15.7 H (11.5-14.5) % Plt Count 195 (150-375) k/mm3 MPV 10.5 H (7.4-10.4) fl Immature Gran % (Auto) 0.2 (0-0.5) % Neut % (Auto) 67.2 (45.5-73.1) % Lymph % (Auto) 25.3 (18.3-44.2) % [place] % (Auto) 5.8 (2.6-8.5) % Eos % (Auto) 0.9 (0-4.4) % Baso % (Auto) 0.6 (0.2-1.2) % Lymph # (Auto) 2.40 (0.9-3.2) K/mm3 [place] # (Auto) 0.6 (0.1-0.6) K/mm3 Eos # (Auto) 0.1 (0-0.3) K/mm3 Baso # (Auto) 0.1 (0.0-0.1) K/mm3 Abs Immat Gran (auto) 0.02 (0.00-0.031) K/mm3 Absolute Neuts (auto) 6.4 (1.3-6.7) K/mm3 Absolute Nucleated RBC 0.000 (0.0-0.012) K/mm3 Nucleated RBC % 0.0 (0.0-0.2) % Sodium 136 L (137-145) mmol/L Potassium 4.0 (3.4-5.0) mmol/L Chloride 107 (98-107) mmol/L Carbon Dioxide 23 (22-30) mmol/L Anion Gap 6 (4-12) mmol/L BUN 18 H (7-17) mg/dL Creatinine 1.11 H (0.7-1.0) mg/dL Estim Creat Clear Calc Not Reportable Estimated GFR 47 L (59 - ) Glucose 87 (65-110) mg/dL Calcium 9.2 (8.4-10.2) mg/dL Total Bilirubin 0.6 (0.2-1.3) mg/dL AST 60 H (14-36) U/L ALT 62 H (6-35) U/L Alkaline Phosphatase 78 (38-126) U/L Ammonia < 9 L (9-30) umol/L Total Creatine Kinase 211 H (30-135) U/L Troponin I < 0.012 Cancelled (0.000-0.034) ng/mL Total Protein 7.2 (6.3-8.2) g/dL Albumin 4.0 (3.5-5.1) g/dL TSH > 100.000 H (0.465-4.680) uIU/mL Free T4 < 0.07 L (0.78-2.19) ng/dL Free T3 pg/mL < 0.77 L Cancelled (2.34-5.61) pg/mL Urine Color (Yellow) Urine Appearance (Clear) Urine pH (5.0-9.0) Ur Specific [place] (1.001-1.035) Urine Protein (Negative) mg/dL Urine Glucose (UA) (Negative) mg/dL Urine Ketones (Negative) mg/dL Ur Blood (Man) (Negative) Urine Nitrate (Negative) Urine Bilirubin (Negative) Urine Urobilinogen (<2.0) mg/dL Leukocyte Esterase Rfl (Negative) STEF/UL Urine RBC (0-2) /hpf Urine WBC (0-3) /hpf Ur Squamous Epith Cells (Few) /hpf Urine Bacteria /hpf Urine Casts Salicylates < 1.0 L (2-20) mg/dL Urine Opiates Screen (Negative) Urine Methadone Screen (Negative) Acetaminophen < 10 L (10-30) ug/mL Ur Barbiturates Screen (Negative) Ur Phencyclidine Scrn (Negative) Ur Amphetamine Screen (Negative) U Benzodiazepines Scrn (Negative) Urine Cocaine Screen (Negative) U Cannabinoids Screen (Negative) Influenza A (RT-PCR) (Negative) Influenza B (RT-PCR) (Negative) RSV (RT-PCR) (Negative) SARS-CoV-2 RNA (RT-PCR) (Negative) 11/08/24 11/08/24 Range/Units 18:03 18:15 WBC (4.5-10.0) K/mm3 RBC (4.2-5.4) M/mm3 Hgb (12.0-15.0) g/dL Hct (37.0-47.0) % MCV (80-100) fl MCH (26-34) pg MCHC (32-36) g/dl RDW (11.5-14.5) % Plt Count (150-375) k/mm3 MPV (7.4-10.4) fl Immature Gran % (Auto) (0-0.5) % Neut % (Auto) (45.5-73.1) % Lymph % (Auto) (18.3-44.2) % [place] % (Auto) (2.6-8.5) % Eos % (Auto) (0-4.4) % Baso % (Auto) (0.2-1.2) % Lymph # (Auto) (0.9-3.2) K/mm3 [place] # (Auto) (0.1-0.6) K/mm3 Eos # (Auto) (0-0.3) K/mm3 Baso # (Auto) (0.0-0.1) K/mm3 Abs Immat Gran (auto) (0.00-0.031) K/mm3 Absolute Neuts (auto) (1.3-6.7) K/mm3 Absolute Nucleated RBC (0.0-0.012) K/mm3 Nucleated RBC % (0.0-0.2) % Sodium (137-145) mmol/L Potassium (3.4-5.0) mmol/L Chloride (98-107) mmol/L Carbon Dioxide (22-30) mmol/L Anion Gap (4-12) mmol/L BUN (7-17) mg/dL Creatinine (0.7-1.0) mg/dL Estim Creat Clear Calc Estimated GFR (59 - ) Glucose (65-110) mg/dL Calcium (8.4-10.2) mg/dL Total Bilirubin (0.2-1.3) mg/dL AST (14-36) U/L ALT (6-35) U/L Alkaline Phosphatase (38-126) U/L Ammonia (9-30) umol/L Total Creatine Kinase (30-135) U/L Troponin I (0.000-0.034) ng/mL Total Protein (6.3-8.2) g/dL Albumin (3.5-5.1) g/dL TSH (0.465-4.680) uIU/mL Free T4 (0.78-2.19) ng/dL Free T3 pg/mL (2.34-5.61) pg/mL Urine Color Yellow (Yellow) Urine Appearance Clear (Clear) Urine pH 5.5 (5.0-9.0) Ur Specific [place] 1.023 (1.001-1.035) Urine Protein Negative (Negative) mg/dL Urine Glucose (UA) Negative (Negative) mg/dL Urine Ketones Negative (Negative) mg/dL Ur Blood (Man) Negative (Negative) Urine Nitrate Positive H (Negative) Urine Bilirubin Negative (Negative) Urine Urobilinogen 0.2 (<2.0) mg/dL Leukocyte Esterase Rfl 2+ H (Negative) STEF/UL Urine RBC 0-2 (0-2) /hpf Urine WBC >100 H (0-3) /hpf Ur Squamous Epith Cells Occasional (Few) /hpf Urine Bacteria 4+ H /hpf Urine Casts 0-2 Salicylates (2-20) mg/dL Urine Opiates Screen Negative (Negative) Urine Methadone Screen Negative (Negative) Acetaminophen (10-30) ug/mL Ur Barbiturates Screen Negative (Negative) Ur Phencyclidine Scrn Negative (Negative) Ur Amphetamine Screen Negative (Negative) U Benzodiazepines Scrn Negative (Negative) Urine Cocaine Screen Negative (Negative) U Cannabinoids Screen Negative (Negative) Influenza A (RT-PCR) Negative (Negative) Influenza B (RT-PCR) Negative (Negative) RSV (RT-PCR) Negative (Negative) SARS-CoV-2 RNA (RT-PCR) Negative (Negative) Imaging Data Radiologist's impression: Impressions Chest X-Ray 11/08/24 17:42 IMPRESSION: No acute cardiopulmonary process. Head CT 11/08/24 17:57 IMPRESSION: No acute intracranial process. Cervical Spine CT 11/08/24 18:01 IMPRESSION: No acute fracture or traumatic malalignment in the cervical spine. Chest/Abdomen/Pelvis CT 11/08/24 19:48 IMPRESSION: Small focus of tree-in-bud opacities in the right upper lobe may represent a small focus of atypical infection or aspiration. Stable 6 cm lingular nodule. Moderate esophagitis/gastritis. Multiple hepatic hemangiomas. Hepatic steatosis. Indeterminate density left renal lesion, consider nonemergent CT or MRI without and with contrast for further characterization. Bladder wall thickening and edema as can be seen with cystitis. ECG Data EKG #1: Attestation: I personally reviewed and interpreted this ECG as follows: ECG completion date: 11/08/24 ECG completion time: 17:03 Interpretation: Normal sinus rhythm at a rate of 71 beats per minute. IA interval 158. QRS 79. QT/QTC 368/390. T-wave flattening in 3 but otherwise upright in contiguous inferior leads. No other T-wave inversions. Discharge Plan Discharge Clinical Impression: Weakness generalized, Cognitive and behavioral changes, RAMO (acute kidney injury), Elevated CPK, UTI (urinary tract infection), Abnormal TSH, Pneumonia of right upper lobe due to infectious organism, Esophagitis with gastritis, Hepatic hemangioma, Hypothyroidism, Hepatic steatosis, Lesion of left [place] kidney, Cystitis Patient Disposition: Still a Patient Condition: Stable Patient Language: Tamazight Prescriptions: No Action aspirin 325 mg tablet 325 mg PO DAILY cholecalciferol (vitamin D3) 25 mcg (1,000 unit) tablet 25 mcg PO DAILY atorvastatin 80 mg tablet 80 mg PO HS Qty: 90 1RF ezetimibe 10 mg tablet 10 mg PO HS Qty: 90 1RF hydralazine 50 mg tablet 100 mg PO BID Qty: 360 3RF levothyroxine 75 mcg tablet 75 mcg PO DAILY Qty: 90 1RF metoprolol succinate 25 mg tablet extended release 24 hr See Rx Instructions .ROUTE .COMPLEX Qty: 90 1RF Dose Instruction: TAKE 1 TABLET BY MOUTH DAILY Rx Instructions: TAKE 1 TABLET BY MOUTH DAILY lisinopril 40 mg tablet 40 mg PO DAILY Qty: 90 1RF Follow-up/Referrals: Clayton Corley APRN [Primary Care Provider] -
[2024-11-08 17:29] LABS: Hematocrit 44.5 % (37.0-47.0); Hemoglobin 14.3 g/dL (12.0-15.0); Immature Granulocyte Percent A 0.2 % (0-0.5); Lymphocytes Absolute Auto 2.40 K/mm3 (0.9-3.2); Mean Corpuscular HGB Conc 32.1 g/dl (32-36); Mean Corpuscular Hemoglobin 28.9 pg (26-34); Mean Corpuscular Volume 90.1 fl (80-100); Nucleated Red Blood Cells Absolute Auto 0.000 K/mm3 (0.0-0.012); Nucleated Red Blood Cells Perc 0.0 % (0.0-0.2); Platelet Count Result 195 k/mm3 (150-375); Red Blood Count 4.94 M/mm3 (4.2-5.4); White Blood Count 9.5 K/mm3 (4.5-10.0)
[2024-11-08 17:37] LABS: Ammonia < 9 umol/L (9-30)
--- NOTE | 2024-11-08 17:44 | PC.NURSE ---
Pt. to imaging.
[2024-11-08 18:02] LABS: Alanine Aminotransferase 62 U/L (6-35); Albumin Level 4.0 g/dL (3.5-5.1); Alkaline Phosphatase 78 U/L (38-126); Anion Gap 6 mmol/L (4-12); Aspartate Amino Transferase 60 U/L (14-36); Bilirubin,Total 0.6 mg/dL (0.2-1.3); Blood Urea Nitrogen 18 mg/dL (7-17); Calcium 9.2 mg/dL (8.4-10.2); Carbon Dioxide 23 mmol/L (22-30); Chloride 107 mmol/L (98-107); Creatine Kinase 211 U/L (30-135); Estimated Glomerular Filt Rate 47; Glucose 87 mg/dL (65-110); Potassium 4.0 mmol/L (3.4-5.0); Sodium 136 mmol/L (137-145); Total Protein 7.2 g/dL (6.3-8.2)
[2024-11-08 18:09] LABS: Troponin I < 0.012 ng/mL (0.000-0.034)
[2024-11-08 18:25] LABS: Add Urine Microscopic? YES; Appearance Urine Clear (Clear); Glucose Urine UA Negative (Negative); Leukocyte Esterase Ur 2+ LEU/UL (Negative); Nitrate Urine Positive (Negative); Non Pathogenic Casts 0-2; Specific Grav Ur 1.023 (1.001-1.035)
[2024-11-08 18:47] LABS: Acetaminophen < 10 ug/mL (10-30); Salicylate < 1.0 mg/dL (2-20)
[2024-11-08 18:52] LABS: Thyroid Stimulating Hormone > 100.000 uIU/mL (0.465-4.680)
[2024-11-08 18:56] LABS: Influenza A QL RT-PCR Negative (Negative); Influenza B QL RT-PCR Negative (Negative); RSV RNA, RT-PCR Negative (Negative); SARS-CoV-2 RNA PCR Negative (Negative)
[2024-11-08 19:00] LABS: Cannabinoid Screen Urine Negative (Negative)
[2024-11-08 19:38] LABS: Free T4 Free Thyroxine < 0.07 ng/dL (0.78-2.19)
[2024-11-08] MEDS: SODIUM CHLORIDE 0.9% IV 1,000 ML 999 ML IV CONT (19:40)
[2024-11-08] MEDS: cefTRIAXone 1 GM in SODIUM CHLORIDE 0.9% IV 50 ML 100 ML IVPB (19:40)
[2024-11-08] MEDS: LEVOTHYROXINE SODIUM INJ 100 MCG/5 ML VIAL 225 MCG IV PUSH (20:51)
[2024-11-08] MEDS: dexAMETHasone SOD PHOS INJ 10 MG/ML 1 ML VIAL 4 MG IV PUSH (20:51)
[2024-11-08] MEDS: AZITHROMYCIN 500 MG TABLET PO (20:52)
[2024-11-08] MEDS: SODIUM CHLORIDE 0.9% IV 1,000 ML 100 ML IV CONT (20:52)
[2024-11-08 21:21] LABS: Free T3 < 0.77 pg/mL (2.34-5.61)
--- NOTE | 2024-11-08 23:23 | PM.IMHP ---
H&P: HPI History of Present Illness Date/Time: 11/08/24 23:15 Chief Complaint: Progressive weakness, occasional confusion Narrative: Entertaining 84-year-old female with a past medical history of chronic tobacco use, essential hypertension, hypothyroidism, coronary artery disease with distant history of stent and [id number] aortic stenosis who was brought in by family to the ER for evaluation of increased weakness for 1 week. The patient is alert oriented to person place and time at the time my evaluation but the daughter who is at bedside helps provide some of the history as the patient deflects/dodges answering some questions. Patient's daughter reports that since the patient's couple of years ago she did become depressed in lose some weight. Since that time she has had a slow progressive decline in functional status. The patient does still drive but has been having increasing difficulty with ambulation. He was admitted the hospital with episodes of V-tach in 2022 was found to be hyperthyroid at that time. She has had followup TSH levels later that same year that were elevated as high as 90. Does not look like that she has had follow-up regarding her hypothyroidism since the summer of 2022. Her daughters report that they found several bottles of Synthroid from [id number] in her home but new new bottles. Daughters have noticed that the patient's bili did ambulate has been declining since April. Her mobility is become quite limited. But she has become so weak in the last week that she is having trouble even standing. She has had decreased oral intake. Her daughter reports that the patient never wants to drink water because she does not like the taste of it. The patient tried to smoke the wrong and defer cigarette, she tried to back her car out of the driveway and hit the trash can, she also was trying to cook and could not remember if there was cheese in [facility], she also was trying to cook something on the top of the stove in instead turned the of an on and could not figure out what was wrong. The patient does use depends at night for intermittent bladder leaks. But the patient has been saturating her depends in urinating more so recently. She denies any dysuria or hematuria. She denies any fevers or chills. She has occasional smoker's cough that is unchanged from baseline. She denies shortness of breath. She has been having normal bowel movements. She had evidently room reported some pain in her right flank to the ER staff but did not complain of this at the time my evaluation. She denies any recent falls but has a scabbed skin tear to her right elbow. She does not know where the injury came from. Patient's daughter reports that the patient has a small dog that she is no longer able to take care of since she has not been able to get up and move around. The patient's POA/daughter Emilia was at bedside and helps provide portion the patient's history. The remainder of information was obtained from review of medical records/external records, ER physician report and nursing report. Review of Systems Review of Systems: 12 systems were reviewed with pertinent positives and negatives per HPI. Except as documented in the HPI, all other systems were reviewed and are negative. [facility] Past Medical History Medical History (Updated 11/09/24 @ 03:09 by Tiffanie Ortega DO) Congenital strabismus Aortic stenosis Hepatic steatosis Esophagitis with gastritis BMI 20.0-20.9, adult Thyroid disorder Vitamin D deficiency Hypothyroidism Dyslipidemia Hypertension Coronary artery disease Surgical History Surgical History (Updated 11/09/24 @ 02:40 by Tiffanie Ortega DO) History of appendectomy History of arthroscopic knee surgery History of heart artery stent X1 Family History Family History Sibling Patient's sister is in good health Mother Family history of malignant neoplasm of breast in first degree relative Breast cancer Hypertension Cerebrovascular accident Father Family history of coronary artery disease Heart problem Other Colon cancer Social History Social History (Updated 11/09/24 @ 02:40 by Tiffanie Ortega DO) Social History: Surrogate medical decision maker: Emilia Pedraza, daughter. Code status: DNR per discussion with her with family at bedside (she states she has this in writing in a living will) Smoking packs per day: 0.5 Smoking cigarettes per day: 10.0 Years smoked: 64 Smoking pack-years: 32.00 Smoking status: Current every day smoker Tobacco type: cigarettes Second hand tobacco smoke exposure: No Alcohol intake: never Substance use: never Substance use type: does not use Do You Feel Safe in your Home?: Yes Lack of Transportation: No Lack of Food: Never True Current Housing: I Have Housing Concerned About Future Housing: No Difficulty Paying Gas/Electric Bills: No Difficulty Paying for Meds: No Currently Unemployed: No Education: Associate Degree Difficulty w/ Childcare or Family Care: No Living arrangements: alone Additional living arrangements comments: as of January 2022. Lives alone in [place] with her dog. 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 Gender identity (if verbalized by the patient): Female Spiritual care concerns: Yes Meds Home Medications and Allergies Home Medications ?Medication ?Instructions ?Recorded ?Confirmed ?Type aspirin 325 mg tablet 325 mg PO DAILY 12/02/19 11/08/24 History cholecalciferol (vitamin D3) 25 25 mcg PO DAILY 12/02/19 11/08/24 History mcg (1,000 unit) tablet atorvastatin 80 mg tablet 80 mg PO HS #90 tabs 08/19/24 11/08/24 Rx ezetimibe 10 mg tablet 10 mg PO HS #90 tabs 08/19/24 11/08/24 Rx hydralazine 50 mg tablet 100 mg (2 x 50 mg) PO BID #360 tabs 08/19/24 11/08/24 Rx levothyroxine 75 mcg tablet 75 mcg PO DAILY #90 tabs 08/19/24 11/08/24 Rx metoprolol succinate 25 mg See Rx Instructions .Route 08/19/24 11/08/24 Rx tablet,extended release 24 hr .COMPLEX #90 tabs lisinopril 40 mg tablet 40 mg PO DAILY #90 tabs 08/31/24 11/08/24 Rx cyclosporine 0.05 % eye drops in a 1 drp EACH EYE Q12H 11/08/24 11/08/24 History dropperette (Restasis) Allergies Allergy/AdvReac Type Severity Reaction Status Date / Time amoxicillin Allergy Mild RASH Verified 11/08/24 22:43 Penicillins Allergy Mild hives Verified 11/08/24 22:43 Vital Signs Vital Signs - 24 hr 11/08/24 14:02 11/08/24 14:29 11/08/24 20:01 Temperature 97.9 F Pulse Rate 81 78 65 Respiratory Rate 16 16 18 Blood Pressure 131/77 131/85 168/87 H Pulse Oximetry 98 99 100 Oxygen Delivery Room Air Room Air 11/08/24 20:45 11/08/24 20:46 11/08/24 21:37 Temperature Pulse Rate 67 69 68 Respiratory Rate 18 15 17 Blood Pressure 156/79 H Pulse Oximetry 97 98 100 Oxygen Delivery 11/08/24 21:45 11/08/24 22:00 11/08/24 22:15 Temperature Pulse Rate 65 66 65 Respiratory Rate 14 15 15 Blood Pressure Pulse Oximetry 100 99 100 Oxygen Delivery 11/08/24 22:53 Temperature 97.1 F L Pulse Rate 64 Respiratory Rate 16 Blood Pressure 155/78 H Pulse Oximetry 100 Oxygen Delivery Exam Narrative: Weight 58.6 kg BMI 20.2 Const: Other: Well-developed, well-nourished, appears stated age HENMT: Other: Mucous membranes are dry, no oral pharyngeal erythema, head is normocephalic atraumatic Eyes: Other: No conjunctival pallor, no scleral icterus, pupils are equal and reactive but patient does have dysconjugate gaze Neck: Other: No JVD, no lymphadenopathy Resp: Other: Clear to auscultation bilaterally, no increased work of breathing Cardio: Other: 2/6 systolic murmur heard best at the left and right upper sternal border, regular rate, regular rhythm, 2+ bilateral radial and pedal pulses GI: Other: Soft, nontender, nondistended, positive bowel sounds : Other: Pure wick catheter in place Skin: Other: Generalized pallor, non jaundice Neuro: Other: Patient is alert oriented person, place, time and situation but seems to have moments of confusion, no localizing neurologic deficits noted during the course of conversation except for the patient's chronic extraocular deficits with her history of strabismus Extrem: Other: No clubbing, cyanosis or edema, moves all extremities equally Psych: Other: Extremely pleasant, cooperative, joking H&P: Results Labs Labs: Laboratory Tests 11/08/24 17:19 11/08/24 17:19 11/08/24 11/08/24 11/08/24 17:19 17:19 17:19 WBC 9.5 RBC 4.94 Hgb 14.3 Hct 44.5 MCV 90.1 MCH 28.9 MCHC 32.1 RDW 15.7 H Plt Count 195 MPV 10.5 H Immature Gran % (Auto) 0.2 Neut % (Auto) 67.2 Lymph % (Auto) 25.3 [place] % (Auto) 5.8 Eos % (Auto) 0.9 Baso % (Auto) 0.6 Lymph # (Auto) 2.40 [place] # (Auto) 0.6 Eos # (Auto) 0.1 Baso # (Auto) 0.1 Abs Immat Gran (auto) 0.02 Absolute Neuts (auto) 6.4 Absolute Nucleated RBC 0.000 Nucleated RBC % 0.0 Sodium 136 L Potassium 4.0 Chloride 107 Carbon Dioxide 23 Anion Gap 6 BUN 18 H Creatinine 1.11 H Estim Creat Clear Calc Not Reportable Estimated GFR 47 L Glucose 87 Calcium 9.2 Total Bilirubin 0.6 AST 60 H ALT 62 H Alkaline Phosphatase 78 Ammonia < 9 L Total Creatine Kinase 211 H Troponin I < 0.012 Cancelled Total Protein 7.2 Albumin 4.0 TSH > 100.000 H Free T4 < 0.07 L Free T3 pg/mL < 0.77 L Cancelled Urine Color Urine Appearance Urine pH Ur Specific [place] Urine Protein Urine Glucose (UA) Urine Ketones Ur Blood (Man) Urine Nitrate Urine Bilirubin Urine Urobilinogen Leukocyte Esterase Rfl Urine RBC Urine WBC Ur Squamous Epith Cells Urine Bacteria Urine Casts Salicylates < 1.0 L Urine Opiates Screen Urine Methadone Screen Acetaminophen < 10 L Ur Barbiturates Screen Ur Phencyclidine Scrn Ur Amphetamine Screen U Benzodiazepines Scrn Urine Cocaine Screen U Cannabinoids Screen Influenza A (RT-PCR) Influenza B (RT-PCR) RSV (RT-PCR) SARS-CoV-2 RNA (RT-PCR) 11/08/24 11/08/24 18:03 18:15 WBC RBC Hgb Hct MCV MCH MCHC RDW Plt Count MPV Immature Gran % (Auto) Neut % (Auto) Lymph % (Auto) [place] % (Auto) Eos % (Auto) Baso % (Auto) Lymph # (Auto) [place] # (Auto) Eos # (Auto) Baso # (Auto) Abs Immat Gran (auto) Absolute Neuts (auto) Absolute Nucleated RBC Nucleated RBC % Sodium Potassium Chloride Carbon Dioxide Anion Gap BUN Creatinine Estim Creat Clear Calc Estimated GFR Glucose Calcium Total Bilirubin AST ALT Alkaline Phosphatase Ammonia Total Creatine Kinase Troponin I Total Protein Albumin TSH Free T4 Free T3 pg/mL Urine Color Yellow Urine Appearance Clear Urine pH 5.5 Ur Specific [place] 1.023 Urine Protein Negative Urine Glucose (UA) Negative Urine Ketones Negative Ur Blood (Man) Negative Urine Nitrate Positive H Urine Bilirubin Negative Urine Urobilinogen 0.2 Leukocyte Esterase Rfl 2+ H Urine RBC 0-2 Urine WBC >100 H Ur Squamous Epith Cells Occasional Urine Bacteria 4+ H Urine Casts 0-2 Salicylates Urine Opiates Screen Negative Urine Methadone Screen Negative Acetaminophen Ur Barbiturates Screen Negative Ur Phencyclidine Scrn Negative Ur Amphetamine Screen Negative U Benzodiazepines Scrn Negative Urine Cocaine Screen Negative U Cannabinoids Screen Negative Influenza A (RT-PCR) Negative Influenza B (RT-PCR) Negative RSV (RT-PCR) Negative SARS-CoV-2 RNA (RT-PCR) Negative Impressions Chest X-Ray 11/08/24 17:42 IMPRESSION: No acute cardiopulmonary process. Head CT 11/08/24 17:57 IMPRESSION: No acute intracranial process. Cervical Spine CT 11/08/24 18:01 IMPRESSION: No acute fracture or traumatic malalignment in the cervical spine. Chest/Abdomen/Pelvis CT 11/08/24 19:48 IMPRESSION: Small focus of tree-in-bud opacities in the right upper lobe may represent a small focus of atypical infection or aspiration. Stable 6 cm lingular nodule. Moderate esophagitis/gastritis. Multiple hepatic hemangiomas. Hepatic steatosis. Indeterminate density left renal lesion, consider nonemergent CT or MRI without and with contrast for further characterization. Bladder wall thickening and edema as can be seen with cystitis. EKG: Normal sinus rhythm possible left atrial enlargement low-voltage QRS in extremity leads left anterior fascicular block QTC 401 All imaging and EKGs personally reviewed and interpreted. And unless stated otherwise agree with radiologic and cardiology interpretation. Assessment and Plan Assessment and plan (1) Hypothyroidism: Qualifiers: Hypothyroidism type: acquired Qualified Code(s): E03.9 - Hypothyroidism, unspecified Code(s): E03.9 - Hypothyroidism, unspecified Status: Acute (2) Acute UTI: Code(s): N39.0 - Urinary tract infection, site not specified Status: Acute (3) Cognitive and behavioral changes: Code(s): R41.89 - Other symptoms and signs involving cognitive functions and awareness; R46.89 - Other symptoms and signs involving appearance and behavior Status: Acute (4) Elevated CPK: Code(s): R74.8 - Abnormal levels of other serum enzymes Status: Acute (5) RAMO (acute kidney injury): Code(s): N17.9 - Acute kidney failure, unspecified Status: Acute (6) Pneumonia of right upper lobe due to infectious organism: Code(s): J18.9 - Pneumonia, unspecified organism Status: Acute (7) Smoker: Code(s): F17.200 - Nicotine dependence, unspecified, uncomplicated Status: Acute (8) Weakness generalized: Code(s): R53.1 - Weakness Status: Acute Plan Patient is having difficulty with episodes of confusion which is likely multifactorial. Likely due to untreated hypothyroidism due to noncompliance with medication therapy and possible underlying UTI and complicated further by the patient's age and possible developing mild cognitive impairment. Patient has been placed on empiric antibiotic therapy to treat for possible UTI and urine cultures are pending. Patient TSH is markedly elevated and it appears she likely has not been on her medications for hypothyroidism since 2022. Patient received turned 25 mcg IV levothyroxine in the ER and a dose of Decadron. Patient will be transition back to oral levothyroxine in a.m.. The importance of compliance with medications was discussed with the patient. The patient above factors are playing a component in her generalized weakness. But patient would also benefit from evaluation by physical therapy to work on strengthening and for recommendations for possible discharge placement. Patient did have mildly elevated CK but this is likely due to decreased mobility and does not indicate overt rhabdomyolysis. Patient did received 1 L fluid bolus in the ER will continue with 2 L normal saline and will stop fluids and re-evaluate patient's fluid status. Patient has had good urine output from the pure wick catheter since arriving to the medical floor. Patient's creatinine is slightly elevated but similar to last month. It is unclear if this is acute kidney injury verses this being her baseline renal function. Will repeat electrolyte panel in a.m.. Patient is imaging demonstrated possible right upper lobe pneumonia. Patient is not having any respiratory symptoms besides her chronic smoker's cough. I am less concerned about pneumonia but will not hurt to have add azithromycin to antibiotic regimen. The patient is a smoker and continues to smoke. She has no interest in smoking cessation education. She does not want a nicotine patch. Given possible UTI will repeat CBC in a.m.. Patient has been admitted as observation status. MEDICAL DECISION MAKING NARRATIVE -Spoke with the ED provider in detail regarding patient's evaluation, workup and management -Patient seen and examined at bedside -Collaborated with patient's nurse at the bedside in detail and addressed all concerns -Labs, electrolytes, radiology, investigations and test results reviewed -ED/Consult/Nursing/Ancilliary notes on the chart reviewed and appreciated -Spoke with patient/family at the bedside and all questions answered Quality VTE Prophylaxis VTE prophylaxis: mechanical ordered (SCDs) Hospitalist MIPS Advance Care Plan I have confirmed that the patient's Advanced Care Plan is present, code status is documented, or surrogate decision maker is listed in patient medical record.: Yes Medication Reconciliation I have utilized all available resources to obtain, update and review the patients current medications (includes all prescriptions, OTC, herbals, cannabis, and nutritional supplements).: Yes
[2024-11-09] VITALS (7 sets, daily range): BP systolic 106–143; BP diastolic 56–86; PULSE 64–71; RESP 16–20; TEMP 36.2–37; O2SAT 95–98
[2024-11-09] MEDS: LEVOTHYROXINE SODIUM 75 MCG TABLET PO (06:13)
[2024-11-09] MEDS: SODIUM CHLORIDE 0.9% IV 1,000 ML 100 ML IV CONT (06:14)
[2024-11-09] MEDS: ASPIRIN 325 MG TABLET PO (08:29)
[2024-11-09] MEDS: cycloSPORINE 0.4 ML OPHTH SOLUTION 1 DROP EACH EYE ×2 (08:29→22:24)
[2024-11-09] MEDS: CHOLECALCIFEROL (VITAMIN D3) 25 MCG (1,000 UNITS) TABLET PO (08:29)
[2024-11-09] MEDS: METOPROLOL SUCCINATE EXT REL 25 MG TABCR PO (08:30)
--- NOTE | 2024-11-09 17:20 | PM.IMPN ---
Progress Note: A&P Assessment and Plan (1) Hypothyroidism: Qualifiers: Hypothyroidism type: acquired Qualified Code(s): E03.9 - Hypothyroidism, unspecified Code(s): E03.9 - Hypothyroidism, unspecified Status: Acute (2) Acute UTI: Code(s): N39.0 - Urinary tract infection, site not specified Status: Acute (3) Cognitive and behavioral changes: Code(s): R41.89 - Other symptoms and signs involving cognitive functions and awareness; R46.89 - Other symptoms and signs involving appearance and behavior Status: Acute (4) Elevated CPK: Code(s): R74.8 - Abnormal levels of other serum enzymes Status: Acute (5) RAMO (acute kidney injury): Code(s): N17.9 - Acute kidney failure, unspecified Status: Acute (6) Pneumonia of right upper lobe due to infectious organism: Code(s): J18.9 - Pneumonia, unspecified organism Status: Acute (7) Smoker: Code(s): F17.200 - Nicotine dependence, unspecified, uncomplicated Status: Acute (8) Weakness generalized: Code(s): R53.1 - Weakness Status: Acute Plan Patient is having difficulty with episodes of confusion which is likely multifactorial. Likely due to untreated hypothyroidism due to noncompliance with medication therapy and possible underlying UTI and complicated further by the patient's age and possible developing mild cognitive impairment. Patient has been placed on empiric antibiotic therapy to treat for possible UTI and urine cultures are pending. Patient TSH is markedly elevated and it appears she likely has not been on her medications for hypothyroidism since 2022. Patient received turned 25 mcg IV levothyroxine in the ER and a dose of Decadron. Patient will be transition back to oral levothyroxine in a.m.. The importance of compliance with medications was discussed with the patient. The patient above factors are playing a component in her generalized weakness. But patient would also benefit from evaluation by physical therapy to work on strengthening and for recommendations for possible discharge placement. Patient did have mildly elevated CK but this is likely due to decreased mobility and does not indicate overt rhabdomyolysis. Patient did received 1 L fluid bolus in the ER will continue with 2 L normal saline and will stop fluids and re-evaluate patient's fluid status. Patient has had good urine output from the pure wick catheter since arriving to the medical floor. Patient's creatinine is slightly elevated but similar to last month. It is unclear if this is acute kidney injury verses this being her baseline renal function. Will repeat electrolyte panel in a.m.. Patient is imaging demonstrated possible right upper lobe pneumonia. Patient is not having any respiratory symptoms besides her chronic smoker's cough. I am less concerned about pneumonia but will not hurt to have add azithromycin to antibiotic regimen. The patient is a smoker and continues to smoke. She has no interest in smoking cessation education. She does not want a nicotine patch. Given possible UTI will repeat CBC in a.m.. Patient has been admitted as observation status. patient is 84 y/o female who lives alone and brought to ER as patient was more confused, and family thought patient was not behaving herself was getting forgetful, In ER patient was found to have significantly elevated TSH of >100 and significantly low T3 and T4, In ER patient was given loading dose levothyroxine with Decadron, started on levothyroxine 75mcg daily, at onetime patient had history of hyperthyroid was seen by an sole skiver and treated apparently had partial thyroidectomy. patient also found to have UTI and being treated with ceftriaxone will follow up on urine culture and sensitivity, CT scan of chest is concerning for possible pneumonia and Zithromax was added, patient remains clinically, and has improved compared to when she arrived, will have PT/OT evaluate the patient and patient will benefit going to acute rehab. patient daughter is present who herself a physician, gave updates. Subjective Date/time seen: 11/09/24 17:20 Interval history: Progressive weakness, occasional confusion Narrative: Entertaining 84-year-old female with a past medical history of chronic tobacco use, essential hypertension, hypothyroidism, coronary artery disease with distant history of stent and [id number] aortic stenosis who was brought in by family to the ER for evaluation of increased weakness for 1 week. The patient is alert oriented to person place and time at the time my evaluation but the daughter who is at bedside helps provide some of the history as the patient deflects/dodges answering some questions. Patient's daughter reports that since the patient's couple of years ago she did become depressed in lose some weight. Since that time she has had a slow progressive decline in functional status. The patient does still drive but has been having increasing difficulty with ambulation. He was admitted the hospital with episodes of V-tach in 2022 was found to be hyperthyroid at that time. She has had followup TSH levels later that same year that were elevated as high as 90. Does not look like that she has had follow-up regarding her hypothyroidism since the summer of 2022. Her daughters report that they found several bottles of Synthroid from [id number] in her home but new new bottles. Daughters have noticed that the patient's bili did ambulate has been declining since April. Her mobility is become quite limited. But she has become so weak in the last week that she is having trouble even standing. She has had decreased oral intake. Her daughter reports that the patient never wants to drink water because she does not like the taste of it. The patient tried to smoke the wrong and defer cigarette, she tried to back her car out of the driveway and hit the trash can, she also was trying to cook and could not remember if there was cheese in [facility], she also was trying to cook something on the top of the stove in instead turned the of an on and could not figure out what was wrong. The patient does use depends at night for intermittent bladder leaks. But the patient has been saturating her depends in urinating more so recently. She denies any dysuria or hematuria. She denies any fevers or chills. She has occasional smoker's cough that is unchanged from baseline. She denies shortness of breath. She has been having normal bowel movements. She had evidently room reported some pain in her right flank to the ER staff but did not complain of this at the time my evaluation. She denies any recent falls but has a scabbed skin tear to her right elbow. She does not know where the injury came from. Patient's daughter reports that the patient has a small dog that she is no longer able to take care of since she has not been able to get up and move around. patient is 84 y/o female who lives alone and brought to ER as patient was more confused, and family thought patient was not behaving herself was getting forgetful, In ER patient was found to have significantly elevated TSH of >100 and significantly low T3 and T4, In ER patient was given loading dose levothyroxine with Decadron, started on levothyroxine 75mcg daily, at onetime patient had history of hyperthyroid was seen by an sole skiver and treated apparently had partial thyroidectomy. patient also found to have UTI and being treated with ceftriaxone will follow up on urine culture and sensitivity, CT scan of chest is concerning for possible pneumonia and Zithromax was added, patient remains clinically, and has improved compared to when she arrived, will have PT/OT evaluate the patient and patient will benefit going to acute rehab. patient daughter is present who herself a physician, gave updates. Review of Systems Review of Systems: 12 systems were reviewed with pertinent positives and negatives per HPI. Except as documented in the HPI, all other systems were reviewed and are negative. Exam Narrative: Elderly frail Patient is comfortable, NAD HEENT: eyes are clear and none icteric LUNGS:CTA HEART: RR S1S2 ABD: BS+, Soft and nontender Lower extremities: no edema SKIN: nonjaundiced Neuro: grossly intact. Objective Data Vital Signs Vital Signs: Vital Signs - 24 hr 11/08/24 20:01 11/08/24 20:45 11/08/24 20:46 Temperature Pulse Rate 65 67 69 Respiratory Rate 18 18 15 Blood Pressure 168/87 H 156/79 H Pulse Oximetry 100 97 98 Oxygen Delivery 11/08/24 21:37 11/08/24 21:45 11/08/24 22:00 Temperature Pulse Rate 68 65 66 Respiratory Rate 17 14 15 Blood Pressure Pulse Oximetry 100 100 99 Oxygen Delivery 11/08/24 22:15 11/08/24 22:53 11/09/24 05:03 Temperature 36.2 C L 36.3 C L Pulse Rate 65 64 68 Respiratory Rate 15 16 20 Blood Pressure 155/78 H 143/86 H Pulse Oximetry 100 100 98 Oxygen Delivery 11/09/24 08:00 11/09/24 08:30 11/09/24 11:52 Temperature Pulse Rate 68 Respiratory Rate Blood Pressure Pulse Oximetry Oxygen Delivery Room Air Room Air 11/09/24 14:00 11/09/24 16:36 Temperature 36.2 C L Pulse Rate 71 64 Respiratory Rate 20 Blood Pressure 106/56 L 140/80 Pulse Oximetry 98 Oxygen Delivery Intake/Output Intake/Output: Intake & Output 11/06/24 11/07/24 11/08/24 11/09/24 23:59 23:59 23:59 23:59 Intake Total 1050 1358.7 Output Total 700 Balance 1050 658.7 Meds/Results Medications: Active Medications Generic Name Dose Route Start Last Admin Trade Name Freq PRN Reason Stop Dose Admin Acetaminophen 650 mg 11/08/24 21:14 Acetaminophen 325 Mg Tablet PO Q4H PRN Mild Pain (1-3) or Fever Aspirin 325 mg 11/09/24 09:00 11/09/24 08:29 Aspirin 325 Mg Tablet PO 325 mg DAILY FORTINO Administration Cyclosporine 1 drop 11/09/24 09:00 11/09/24 08:29 Cyclosporine 0.4 Ml Ophth Solution EACH EYE 1 drop Q12HR FORTINO Administration Hydralazine HCl 100 mg 11/09/24 08:00 11/09/24 16:37 Hydralazine Hcl 50 Mg Tablet PO 100 mg BIDWM FORTINO Administration Ceftriaxone Sodium 1 gm/ 50 mls @ 100 mls/hr 11/09/24 20:00 Sodium Chloride IVPB Q24H FORTINO Azithromycin 500 mg/ Sodium 250 mls @ 250 mls/hr 11/09/24 21:00 Chloride IVPB 11/13/24 21:59 Q24H FORTINO Levothyroxine Sodium 75 mcg 11/09/24 06:30 11/09/24 06:13 Levothyroxine Sodium 75 Mcg Tablet PO 75 mcg DAILY@0630 FORTINO Administration Metoprolol Succinate 25 mg 11/09/24 09:00 11/09/24 08:30 Metoprolol Succinate Ext Rel 25 Mg Tabcr PO 25 mg DAILY FORTINO Administration Ondansetron HCl 4 mg 11/08/24 21:14 Ondansetron Inj 4 Mg/2 Ml Vial IV PUSH Q4H PRN Nausea Vitamin D 25 mcg 11/09/24 09:00 11/09/24 08:29 Cholecalciferol (Vitamin D3) 25 Mcg (1,000 Units) Tablet PO 25 mcg DAILY FORTINO Administration Radiology Results: ITS Impressions Chest X-Ray 11/08/24 17:42 IMPRESSION: No acute cardiopulmonary process. Head CT 11/08/24 17:57 IMPRESSION: No acute intracranial process. Cervical Spine CT 11/08/24 18:01 IMPRESSION: No acute fracture or traumatic malalignment in the cervical spine. Chest/Abdomen/Pelvis CT 11/08/24 19:48 IMPRESSION: Small focus of tree-in-bud opacities in the right upper lobe may represent a small focus of atypical infection or aspiration. Stable 6 cm lingular nodule. Moderate esophagitis/gastritis. Multiple hepatic hemangiomas. Hepatic steatosis. Indeterminate density left renal lesion, consider nonemergent CT or MRI without and with contrast for further characterization. Bladder wall thickening and edema as can be seen with cystitis. Labs Labs: Laboratory Results - last 24 hr 11/08/24 11/08/24 11/08/24 17:19 17:19 17:19 WBC 9.5 RBC 4.94 Hgb 14.3 Hct 44.5 MCV 90.1 MCH 28.9 MCHC 32.1 RDW 15.7 H Plt Count 195 MPV 10.5 H Immature Gran % (Auto) 0.2 Neut % (Auto) 67.2 Lymph % (Auto) 25.3 [place] % (Auto) 5.8 Eos % (Auto) 0.9 Baso % (Auto) 0.6 Lymph # (Auto) 2.40 [place] # (Auto) 0.6 Eos # (Auto) 0.1 Baso # (Auto) 0.1 Abs Immat Gran (auto) 0.02 Absolute Neuts (auto) 6.4 Absolute Nucleated RBC 0.000 Nucleated RBC % 0.0 Sodium 136 L Potassium 4.0 Chloride 107 Carbon Dioxide 23 Anion Gap 6 BUN 18 H Creatinine 1.11 H Estim Creat Clear Calc Not Reportable Estimated GFR 47 L Glucose 87 Calcium 9.2 Total Bilirubin 0.6 AST 60 H ALT 62 H Alkaline Phosphatase 78 Ammonia < 9 L Total Creatine Kinase 211 H Troponin I < 0.012 Cancelled Total Protein 7.2 Albumin 4.0 TSH > 100.000 H Free T4 < 0.07 L Free T3 pg/mL < 0.77 L Cancelled Urine Color Urine Appearance Urine pH Ur Specific [place] Urine Protein Urine Glucose (UA) Urine Ketones Ur Blood (Man) Urine Nitrate Urine Bilirubin Urine Urobilinogen Leukocyte Esterase Rfl Urine RBC Urine WBC Ur Squamous Epith Cells Urine Bacteria Urine Casts Salicylates < 1.0 L Urine Opiates Screen Urine Methadone Screen Acetaminophen < 10 L Ur Barbiturates Screen Ur Phencyclidine Scrn Ur Amphetamine Screen U Benzodiazepines Scrn Urine Cocaine Screen U Cannabinoids Screen Influenza A (RT-PCR) Influenza B (RT-PCR) RSV (RT-PCR) SARS-CoV-2 RNA (RT-PCR) 11/08/24 11/08/24 18:03 18:15 WBC RBC Hgb Hct MCV MCH MCHC RDW Plt Count MPV Immature Gran % (Auto) Neut % (Auto) Lymph % (Auto) [place] % (Auto) Eos % (Auto) Baso % (Auto) Lymph # (Auto) [place] # (Auto) Eos # (Auto) Baso # (Auto) Abs Immat Gran (auto) Absolute Neuts (auto) Absolute Nucleated RBC Nucleated RBC % Sodium Potassium Chloride Carbon Dioxide Anion Gap BUN Creatinine Estim Creat Clear Calc Estimated GFR Glucose Calcium Total Bilirubin AST ALT Alkaline Phosphatase Ammonia Total Creatine Kinase Troponin I Total Protein Albumin TSH Free T4 Free T3 pg/mL Urine Color Yellow Urine Appearance Clear Urine pH 5.5 Ur Specific [place] 1.023 Urine Protein Negative Urine Glucose (UA) Negative Urine Ketones Negative Ur Blood (Man) Negative Urine Nitrate Positive H Urine Bilirubin Negative Urine Urobilinogen 0.2 Leukocyte Esterase Rfl 2+ H Urine RBC 0-2 Urine WBC >100 H Ur Squamous Epith Cells Occasional Urine Bacteria 4+ H Urine Casts 0-2 Salicylates Urine Opiates Screen Negative Urine Methadone Screen Negative Acetaminophen Ur Barbiturates Screen Negative Ur Phencyclidine Scrn Negative Ur Amphetamine Screen Negative U Benzodiazepines Scrn Negative Urine Cocaine Screen Negative U Cannabinoids Screen Negative Influenza A (RT-PCR) Negative Influenza B (RT-PCR) Negative RSV (RT-PCR) Negative SARS-CoV-2 RNA (RT-PCR) Negative Quality VTE Prophylaxis VTE prophylaxis: mechanical ordered (SCDs)
[2024-11-09] MEDS: AZITHROMYCIN IV 500 MG in SODIUM CHLORIDE 0.9% IV 250 ML IVPB (22:24)
[2024-11-09] MEDS: cefTRIAXone 1 GM in SODIUM CHLORIDE 0.9% IV 50 ML 100 ML IVPB (22:24)
[2024-11-10 05:04] VITALS: BP 109/56; PULSE 70; RESP 16; TEMP 36.6; O2SAT 97
[2024-11-10] MEDS: LEVOTHYROXINE SODIUM 75 MCG TABLET PO (05:55)
[2024-11-10 08:21] LABS: Hematocrit 43.1 % (37.0-47.0); Hemoglobin 13.6 g/dL (12.0-15.0); Mean Corpuscular HGB Conc 31.6 g/dl (32-36); Mean Corpuscular Hemoglobin 29.0 pg (26-34); Mean Corpuscular Volume 91.9 fl (80-100); Platelet Count Result 186 k/mm3 (150-375); Red Blood Count 4.69 M/mm3 (4.2-5.4); White Blood Count 8.6 K/mm3 (4.5-10.0)
[2024-11-10 08:45] LABS: Alanine Aminotransferase 45 U/L (6-35); Albumin Level 3.7 g/dL (3.5-5.1); Alkaline Phosphatase 72 U/L (38-126); Anion Gap 3 mmol/L (4-12); Aspartate Amino Transferase 47 U/L (14-36); Bilirubin,Total 0.8 mg/dL (0.2-1.3); Blood Urea Nitrogen 12 mg/dL (7-17); Calcium 9.2 mg/dL (8.4-10.2); Carbon Dioxide 27 mmol/L (22-30); Chloride 107 mmol/L (98-107); Estimated CRCL calculation 30 ml/min; Estimated Glomerular Filt Rate 48; Glucose 95 mg/dL (65-110); Magnesium 2.2 mg/dL (1.6-2.3); Potassium 4.2 mmol/L (3.4-5.0); Sodium 137 mmol/L (137-145); Total Protein 6.5 g/dL (6.3-8.2)
[2024-11-10 09:28] LABS: Thyroid Stimulating Hormone Reflex > 100.000 uIU/mL (0.465-4.68)
[2024-11-10 09:45] VITALS: BP 153/75
[2024-11-10 09:46] VITALS: PULSE 72
[2024-11-10] MEDS: ASPIRIN 325 MG TABLET PO (09:46)
[2024-11-10] MEDS: CHOLECALCIFEROL (VITAMIN D3) 25 MCG (1,000 UNITS) TABLET PO (09:46)
[2024-11-10] MEDS: METOPROLOL SUCCINATE EXT REL 25 MG TABCR PO (09:46)
[2024-11-10] MEDS: cycloSPORINE 0.4 ML OPHTH SOLUTION 1 DROP EACH EYE ×2 (09:46→20:58)
[2024-11-10 10:24] LABS: Free T4 Free Thyroxine Reflex 0.47 ng/dL (0.78-2.19)
[2024-11-10 14:00] VITALS: BP 164/75; PULSE 62; RESP 17; TEMP 36.2; O2SAT 100
--- NOTE | 2024-11-10 14:43 | PM.IMPN ---
Progress Note: A&P Assessment and Plan (1) Hypothyroidism: Qualifiers: Hypothyroidism type: acquired Qualified Code(s): E03.9 - Hypothyroidism, unspecified Code(s): E03.9 - Hypothyroidism, unspecified Status: Acute (2) Acute UTI: Code(s): N39.0 - Urinary tract infection, site not specified Status: Acute (3) Cognitive and behavioral changes: Code(s): R41.89 - Other symptoms and signs involving cognitive functions and awareness; R46.89 - Other symptoms and signs involving appearance and behavior Status: Acute (4) Elevated CPK: Code(s): R74.8 - Abnormal levels of other serum enzymes Status: Acute (5) RAMO (acute kidney injury): Code(s): N17.9 - Acute kidney failure, unspecified Status: Acute (6) Pneumonia of right upper lobe due to infectious organism: Code(s): J18.9 - Pneumonia, unspecified organism Status: Acute (7) Smoker: Code(s): F17.200 - Nicotine dependence, unspecified, uncomplicated Status: Acute (8) Weakness generalized: Code(s): R53.1 - Weakness Status: Acute Plan Patient is having difficulty with episodes of confusion which is likely multifactorial. Likely due to untreated hypothyroidism due to noncompliance with medication therapy and possible underlying UTI and complicated further by the patient's age and possible developing mild cognitive impairment. Patient has been placed on empiric antibiotic therapy to treat for possible UTI and urine cultures are pending. Patient TSH is markedly elevated and it appears she likely has not been on her medications for hypothyroidism since 2022. Patient received turned 25 mcg IV levothyroxine in the ER and a dose of Decadron. Patient will be transition back to oral levothyroxine in a.m.. The importance of compliance with medications was discussed with the patient. The patient above factors are playing a component in her generalized weakness. But patient would also benefit from evaluation by physical therapy to work on strengthening and for recommendations for possible discharge placement. Patient did have mildly elevated CK but this is likely due to decreased mobility and does not indicate overt rhabdomyolysis. Patient did received 1 L fluid bolus in the ER will continue with 2 L normal saline and will stop fluids and re-evaluate patient's fluid status. Patient has had good urine output from the pure wick catheter since arriving to the medical floor. Patient's creatinine is slightly elevated but similar to last month. It is unclear if this is acute kidney injury verses this being her baseline renal function. Will repeat electrolyte panel in a.m.. Patient is imaging demonstrated possible right upper lobe pneumonia. Patient is not having any respiratory symptoms besides her chronic smoker's cough. I am less concerned about pneumonia but will not hurt to have add azithromycin to antibiotic regimen. The patient is a smoker and continues to smoke. She has no interest in smoking cessation education. She does not want a nicotine patch. Given possible UTI will repeat CBC in a.m.. Patient has been admitted as observation status. patient is 84 y/o female who lives alone and brought to ER as patient was more confused, and family thought patient was not behaving herself was getting forgetful, In ER patient was found to have significantly elevated TSH of >100 and significantly low T3 and T4, In ER patient was given loading dose levothyroxine with Decadron, started on levothyroxine 75mcg daily, at onetime patient had history of hyperthyroid was seen by an biotech production specialist and treated apparently had partial thyroidectomy. patient also found to have UTI and being treated with ceftriaxone will follow up on urine culture and sensitivity, CT scan of chest is concerning for possible pneumonia and Zithromax was added, patient remains clinically, and has improved compared to when she arrived, will have PT/OT evaluate the patient and patient will benefit going to acute rehab. patient daughter is present who herself a physician, gave updates. Today patient stats feeling much better compared to when she arrived, upon arrival patient was fatigue and tired was not able to participate with PT, patient stats she is feeling better today and will participate with PT. patient urine and blood culture are pending, will follow up, patient will benefit going to acute rehab before discharging home. there is slight improvement in patient T4 most likely due to supplemental levothyroxine she received upon arrival, patient daughter is present in the room and gave update. Subjective Date/time seen: 11/10/24 14:43 Interval history: Progressive weakness, occasional confusion Narrative: Entertaining 84-year-old female with a past medical history of chronic tobacco use, essential hypertension, hypothyroidism, coronary artery disease with distant history of stent and [id number] aortic stenosis who was brought in by family to the ER for evaluation of increased weakness for 1 week. The patient is alert oriented to person place and time at the time my evaluation but the daughter who is at bedside helps provide some of the history as the patient deflects/dodges answering some questions. Patient's daughter reports that since the patient's couple of years ago she did become depressed in lose some weight. Since that time she has had a slow progressive decline in functional status. The patient does still drive but has been having increasing difficulty with ambulation. He was admitted the hospital with episodes of V-tach in 2022 was found to be hyperthyroid at that time. She has had followup TSH levels later that same year that were elevated as high as 90. Does not look like that she has had follow-up regarding her hypothyroidism since the summer of 2022. Her daughters report that they found several bottles of Synthroid from [id number] in her home but new new bottles. Daughters have noticed that the patient's bili did ambulate has been declining since April. Her mobility is become quite limited. But she has become so weak in the last week that she is having trouble even standing. She has had decreased oral intake. Her daughter reports that the patient never wants to drink water because she does not like the taste of it. The patient tried to smoke the wrong and defer cigarette, she tried to back her car out of the driveway and hit the trash can, she also was trying to cook and could not remember if there was cheese in lasagna, she also was trying to cook something on the top of the stove in instead turned the of an on and could not figure out what was wrong. The patient does use depends at night for intermittent bladder leaks. But the patient has been saturating her depends in urinating more so recently. She denies any dysuria or hematuria. She denies any fevers or chills. She has occasional smoker's cough that is unchanged from baseline. She denies shortness of breath. She has been having normal bowel movements. She had evidently room reported some pain in her right flank to the ER staff but did not complain of this at the time my evaluation. She denies any recent falls but has a scabbed skin tear to her right elbow. She does not know where the injury came from. Patient's daughter reports that the patient has a small dog that she is no longer able to take care of since she has not been able to get up and move around. patient is 84 y/o female who lives alone and brought to ER as patient was more confused, and family thought patient was not behaving herself was getting forgetful, In ER patient was found to have significantly elevated TSH of >100 and significantly low T3 and T4, In ER patient was given loading dose levothyroxine with Decadron, started on levothyroxine 75mcg daily, at onetime patient had history of hyperthyroid was seen by an biotech production specialist and treated apparently had partial thyroidectomy. patient also found to have UTI and being treated with ceftriaxone will follow up on urine culture and sensitivity, CT scan of chest is concerning for possible pneumonia and Zithromax was added, patient remains clinically, and has improved compared to when she arrived, will have PT/OT evaluate the patient and patient will benefit going to acute rehab. patient daughter is present who herself a physician, gave updates. Today patient stats feeling much better compared to when she arrived, upon arrival patient was fatigue and tired was not able to participate with PT, patient stats she is feeling better today and will participate with PT. patient urine and blood culture are pending, will follow up, patient will benefit going to acute rehab before discharging home. there is slight improvement in patient T4 most likely due to supplemental levothyroxine she received upon arrival, patient daughter is present in the room and gave update. Review of Systems Review of Systems: 12 systems were reviewed with pertinent positives and negatives per HPI. Except as documented in the HPI, all other systems were reviewed and are negative. Exam Narrative: Elderly frail Patient is comfortable, NAD HEENT: eyes are clear and none icteric LUNGS:CTA HEART: RR S1S2 ABD: BS+, Soft and nontender Lower extremities: no edema SKIN: nonjaundiced Neuro: grossly intact. Objective Data Vital Signs Vital Signs: Vital Signs - 24 hr 11/09/24 16:36 11/09/24 20:00 11/09/24 20:11 Temperature Pulse Rate 64 71 68 Respiratory Rate 16 20 Blood Pressure 140/80 Pulse Oximetry 97 95 Oxygen Delivery Room Air Room Air Fraction of Inspired Oxygen 21 21 11/09/24 21:27 11/10/24 05:04 11/10/24 09:45 Temperature 37.0 C 36.6 C Pulse Rate 71 70 Respiratory Rate 16 16 Blood Pressure 126/70 109/56 L 153/75 H Pulse Oximetry 97 97 Oxygen Delivery Fraction of Inspired Oxygen 11/10/24 09:46 11/10/24 14:03 Temperature Pulse Rate 72 Respiratory Rate Blood Pressure Pulse Oximetry Oxygen Delivery Room Air Fraction of Inspired Oxygen Intake/Output Intake/Output: Intake & Output 11/07/24 11/08/24 11/09/24 11/10/24 23:59 23:59 23:59 23:59 Intake Total 1050 2380.7 590 Output Total 1700 700 Balance 1050 680.7 -110 Meds/Results Medications: Active Medications Generic Name Dose Route Start Last Admin Trade Name Freq PRN Reason Stop Dose Admin Acetaminophen 650 mg 11/08/24 21:14 Acetaminophen 325 Mg Tablet PO Q4H PRN Mild Pain (1-3) or Fever Aspirin 325 mg 11/09/24 09:00 11/10/24 09:46 Aspirin 325 Mg Tablet PO 325 mg DAILY FORTINO Administration Cyclosporine 1 drop 11/09/24 09:00 11/10/24 09:46 Cyclosporine 0.4 Ml Ophth Solution EACH EYE 1 drop Q12HR FORTINO Administration Hydralazine HCl 100 mg 11/09/24 08:00 11/10/24 09:46 Hydralazine Hcl 50 Mg Tablet PO 100 mg BIDWM FORTINO Administration Ceftriaxone Sodium 1 gm/ 50 mls @ 100 mls/hr 11/09/24 20:00 11/09/24 22:24 Sodium Chloride IVPB 100 mls/hr Q24H FORTINO Administration Azithromycin 500 mg/ Sodium 250 mls @ 250 mls/hr 11/09/24 21:00 11/09/24 22:24 Chloride IVPB 11/13/24 21:59 250 mls/hr Q24H FORTINO Administration Levothyroxine Sodium 75 mcg 11/09/24 06:30 11/10/24 05:55 Levothyroxine Sodium 75 Mcg Tablet PO 75 mcg DAILY@0630 FORTINO Administration Metoprolol Succinate 25 mg 11/09/24 09:00 11/10/24 09:46 Metoprolol Succinate Ext Rel 25 Mg Tabcr PO 25 mg DAILY FORTINO Administration Ondansetron HCl 4 mg 11/08/24 21:14 Ondansetron Inj 4 Mg/2 Ml Vial IV PUSH Q4H PRN Nausea Vitamin D 25 mcg 11/09/24 09:00 11/10/24 09:46 Cholecalciferol (Vitamin D3) 25 Mcg (1,000 Units) Tablet PO 25 mcg DAILY FORTINO Administration Radiology Results: ITS Impressions Chest X-Ray 11/08/24 17:42 IMPRESSION: No acute cardiopulmonary process. Head CT 11/08/24 17:57 IMPRESSION: No acute intracranial process. Cervical Spine CT 11/08/24 18:01 IMPRESSION: No acute fracture or traumatic malalignment in the cervical spine. Chest/Abdomen/Pelvis CT 11/08/24 19:48 IMPRESSION: Small focus of tree-in-bud opacities in the right upper lobe may represent a small focus of atypical infection or aspiration. Stable 6 cm lingular nodule. Moderate esophagitis/gastritis. Multiple hepatic hemangiomas. Hepatic steatosis. Indeterminate density left renal lesion, consider nonemergent CT or MRI without and with contrast for further characterization. Bladder wall thickening and edema as can be seen with cystitis. Labs Labs: Laboratory Results - last 24 hr 11/10/24 08:12 WBC 8.6 RBC 4.69 Hgb 13.6 Hct 43.1 MCV 91.9 MCH 29.0 MCHC 31.6 L RDW 15.9 H Plt Count 186 MPV 10.2 Sodium 137 Potassium 4.2 Chloride 107 Carbon Dioxide 27 Anion Gap 3 L BUN 12 D Creatinine 1.09 H Estim Creat Clear Calc 30 Estimated GFR 48 L Glucose 95 Calcium 9.2 Magnesium 2.2 Total Bilirubin 0.8 AST 47 H ALT 45 H Alkaline Phosphatase 72 Total Protein 6.5 Albumin 3.7 TSH (Reflex) > 100.000 H Free T4 0.47 L Quality VTE Prophylaxis VTE prophylaxis: mechanical ordered (SCDs)
[2024-11-10 20:00] VITALS: PULSE 60; RESP 18; O2SAT 98
[2024-11-10] MEDS: cefTRIAXone 1 GM in SODIUM CHLORIDE 0.9% IV 50 ML 100 ML IVPB (21:01)
[2024-11-10] MEDS: AZITHROMYCIN IV 500 MG in SODIUM CHLORIDE 0.9% IV 250 ML 125 ML IVPB (21:35)
[2024-11-10 22:00] VITALS: BP 139/79; PULSE 60; RESP 18; TEMP 36.1; O2SAT 98
[2024-11-11] MEDS: LEVOTHYROXINE SODIUM 75 MCG TABLET PO (05:43)
[2024-11-11 06:00] VITALS: BP 128/74; PULSE 54; RESP 16; TEMP 36.2; O2SAT 97
[2024-11-11 06:05] LABS: Hematocrit 40.4 % (37.0-47.0); Hemoglobin 12.9 g/dL (12.0-15.0); Mean Corpuscular HGB Conc 31.9 g/dl (32-36); Mean Corpuscular Hemoglobin 29.2 pg (26-34); Mean Corpuscular Volume 91.4 fl (80-100); Platelet Count Result 183 k/mm3 (150-375); Red Blood Count 4.42 M/mm3 (4.2-5.4); White Blood Count 7.6 K/mm3 (4.5-10.0)
[2024-11-11 06:40] LABS: Alanine Aminotransferase 38 U/L (6-35); Albumin Level 3.6 g/dL (3.5-5.1); Alkaline Phosphatase 72 U/L (38-126); Anion Gap 2 mmol/L (4-12); Aspartate Amino Transferase 44 U/L (14-36); Bilirubin,Total 0.7 mg/dL (0.2-1.3); Blood Urea Nitrogen 15 mg/dL (7-17); Calcium 9.3 mg/dL (8.4-10.2); Carbon Dioxide 28 mmol/L (22-30); Chloride 108 mmol/L (98-107); Estimated CRCL calculation 30 ml/min; Estimated Glomerular Filt Rate 46; Glucose 86 mg/dL (65-110); Magnesium 2.3 mg/dL (1.6-2.3); Potassium 4.1 mmol/L (3.4-5.0); Sodium 138 mmol/L (137-145); Total Protein 6.4 g/dL (6.3-8.2)
[2024-11-11 08:49] VITALS: PULSE 68
[2024-11-11] MEDS: CHOLECALCIFEROL (VITAMIN D3) 25 MCG (1,000 UNITS) TABLET PO (08:49)
[2024-11-11] MEDS: METOPROLOL SUCCINATE EXT REL 25 MG TABCR PO (08:49)
[2024-11-11] MEDS: ASPIRIN 325 MG TABLET PO (08:51)
[2024-11-11] MEDS: cycloSPORINE 0.4 ML OPHTH SOLUTION 1 DROP EACH EYE (08:51)
--- NOTE | 2024-11-11 13:41 | PM.IMPN ---
Progress Note: A&P Assessment and Plan (1) Hypothyroidism: Qualifiers: Hypothyroidism type: acquired Qualified Code(s): E03.9 - Hypothyroidism, unspecified Code(s): E03.9 - Hypothyroidism, unspecified Status: Acute (2) Acute UTI: Code(s): N39.0 - Urinary tract infection, site not specified Status: Acute (3) Cognitive and behavioral changes: Code(s): R41.89 - Other symptoms and signs involving cognitive functions and awareness; R46.89 - Other symptoms and signs involving appearance and behavior Status: Acute (4) Elevated CPK: Code(s): R74.8 - Abnormal levels of other serum enzymes Status: Acute (5) RAMO (acute kidney injury): Code(s): N17.9 - Acute kidney failure, unspecified Status: Acute (6) Pneumonia of right upper lobe due to infectious organism: Code(s): J18.9 - Pneumonia, unspecified organism Status: Acute (7) Smoker: Code(s): F17.200 - Nicotine dependence, unspecified, uncomplicated Status: Acute (8) Weakness generalized: Code(s): R53.1 - Weakness Status: Acute Plan Patient is having difficulty with episodes of confusion which is likely multifactorial. Likely due to untreated hypothyroidism due to noncompliance with medication therapy and possible underlying UTI and complicated further by the patient's age and possible developing mild cognitive impairment. Patient has been placed on empiric antibiotic therapy to treat for possible UTI and urine cultures are pending. Patient TSH is markedly elevated and it appears she likely has not been on her medications for hypothyroidism since 2022. Patient received turned 25 mcg IV levothyroxine in the ER and a dose of Decadron. Patient will be transition back to oral levothyroxine in a.m.. The importance of compliance with medications was discussed with the patient. The patient above factors are playing a component in her generalized weakness. But patient would also benefit from evaluation by physical therapy to work on strengthening and for recommendations for possible discharge placement. Patient did have mildly elevated CK but this is likely due to decreased mobility and does not indicate overt rhabdomyolysis. Patient did received 1 L fluid bolus in the ER will continue with 2 L normal saline and will stop fluids and re-evaluate patient's fluid status. Patient has had good urine output from the pure wick catheter since arriving to the medical floor. Patient's creatinine is slightly elevated but similar to last month. It is unclear if this is acute kidney injury verses this being her baseline renal function. Will repeat electrolyte panel in a.m.. Patient is imaging demonstrated possible right upper lobe pneumonia. Patient is not having any respiratory symptoms besides her chronic smoker's cough. I am less concerned about pneumonia but will not hurt to have add azithromycin to antibiotic regimen. The patient is a smoker and continues to smoke. She has no interest in smoking cessation education. She does not want a nicotine patch. Given possible UTI will repeat CBC in a.m.. Patient has been admitted as observation status. patient is 84 y/o female who lives alone and brought to ER as patient was more confused, and family thought patient was not behaving herself was getting forgetful, In ER patient was found to have significantly elevated TSH of >100 and significantly low T3 and T4, In ER patient was given loading dose levothyroxine with Decadron, started on levothyroxine 75mcg daily, at onetime patient had history of hyperthyroid was seen by an trail maintenance worker and treated apparently had partial thyroidectomy. patient also found to have UTI and being treated with ceftriaxone will follow up on urine culture and sensitivity, CT scan of chest is concerning for possible pneumonia and Zithromax was added, patient remains clinically, and has improved compared to when she arrived, will have PT/OT evaluate the patient and patient will benefit going to acute rehab. patient daughter is present who herself a physician, gave updates. Today patient is sitting in the chair eating her breakfast, stats feeling much better compared to when she arrived, upon arrival patient was fatigue and tired was not able to participate with PT, today she did walk with PT, will participate with PT. patient urine culture is growing gram negative bacilli isolated patient is being treated with ceftriaxone and blood culture are pending, will follow up, patient will benefit going to acute rehab before discharging home. there is slight improvement in patient T4 most likely due to supplemental levothyroxine she received upon arrival, today no family is present. Subjective Date/time seen: 11/11/24 13:41 Interval history: Progressive weakness, occasional confusion Narrative: Entertaining 84-year-old female with a past medical history of chronic tobacco use, essential hypertension, hypothyroidism, coronary artery disease with distant history of stent and sicn-to-zisdjxya aortic stenosis who was brought in by family to the ER for evaluation of increased weakness for 1 week. The patient is alert oriented to person place and time at the time my evaluation but the daughter who is at bedside helps provide some of the history as the patient deflects/dodges answering some questions. Patient's daughter reports that since the patient's couple of years ago she did become depressed in lose some weight. Since that time she has had a slow progressive decline in functional status. The patient does still drive but has been having increasing difficulty with ambulation. He was admitted the hospital with episodes of V-tach in 2022 was found to be hyperthyroid at that time. She has had followup TSH levels later that same year that were elevated as high as 90. Does not look like that she has had follow-up regarding her hypothyroidism since the summer of 2022. Her daughters report that they found several bottles of Synthroid from [id number] in her home but new new bottles. Daughters have noticed that the patient's bili did ambulate has been declining since April. Her mobility is become quite limited. But she has become so weak in the last week that she is having trouble even standing. She has had decreased oral intake. Her daughter reports that the patient never wants to drink water because she does not like the taste of it. The patient tried to smoke the wrong and defer cigarette, she tried to back her car out of the driveway and hit the trash can, she also was trying to cook and could not remember [facility], she also was trying to cook something on the top of the stove in instead turned the of an on and could not figure out what was wrong. The patient does use depends at night for intermittent bladder leaks. But the patient has been saturating her depends in urinating more so recently. She denies any dysuria or hematuria. She denies any fevers or chills. She has occasional smoker's cough that is unchanged from baseline. She denies shortness of breath. She has been having normal bowel movements. She had evidently room reported some pain in her right flank to the ER staff but did not complain of this at the time my evaluation. She denies any recent falls but has a scabbed skin tear to her right elbow. She does not know where the injury came from. Patient's daughter reports that the patient has a small dog that she is no longer able to take care of since she has not been able to get up and move around. patient is 84 y/o female who lives alone and brought to ER as patient was more confused, and family thought patient was not behaving herself was getting forgetful, In ER patient was found to have significantly elevated TSH of >100 and significantly low T3 and T4, In ER patient was given loading dose levothyroxine with Decadron, started on levothyroxine 75mcg daily, at onetime patient had history of hyperthyroid was seen by an trail maintenance worker and treated apparently had partial thyroidectomy. patient also found to have UTI and being treated with ceftriaxone will follow up on urine culture and sensitivity, CT scan of chest is concerning for possible pneumonia and Zithromax was added, patient remains clinically, and has improved compared to when she arrived, will have PT/OT evaluate the patient and patient will benefit going to acute rehab. patient daughter is present who herself a physician, gave updates. Today patient is sitting in the chair eating her breakfast, stats feeling much better compared to when she arrived, upon arrival patient was fatigue and tired was not able to participate with PT, today she did walk with PT, will participate with PT. patient urine culture is growing gram negative bacilli isolated patient is being treated with ceftriaxone and blood culture are pending, will follow up, patient will benefit going to acute rehab before discharging home. there is slight improvement in patient T4 most likely due to supplemental levothyroxine she received upon arrival, today no family is present. Review of Systems Review of Systems: 12 systems were reviewed with pertinent positives and negatives per HPI. Except as documented in the HPI, all other systems were reviewed and are negative. Exam Narrative: Elderly frail Patient is comfortable, NAD HEENT: eyes are clear and none icteric LUNGS:CTA HEART: RR S1S2 ABD: BS+, Soft and nontender Lower extremities: no edema SKIN: nonjaundiced Neuro: grossly intact. Objective Data Vital Signs Vital Signs: Vital Signs - 24 hr 11/10/24 14:00 11/10/24 14:03 11/10/24 20:00 Temperature 36.2 C L Pulse Rate 62 60 Respiratory Rate 17 18 Blood Pressure 164/75 H Pulse Oximetry 100 98 Oxygen Delivery Room Air Room Air Fraction of Inspired Oxygen 21 11/10/24 22:00 11/11/24 06:00 11/11/24 08:49 Temperature 36.1 C L 36.2 C L Pulse Rate 60 54 L 68 Respiratory Rate 18 16 Blood Pressure 139/79 128/74 Pulse Oximetry 98 97 Oxygen Delivery Fraction of Inspired Oxygen Intake/Output Intake/Output: Intake & Output 11/08/24 11/09/24 11/10/24 11/11/24 23:59 23:59 23:59 23:59 Intake Total 1050 2680.7 1630 700 Output Total 1700 700 250 Balance 1050 980.7 930 450 Meds/Results Medications: Active Medications Generic Name Dose Route Start Last Admin Trade Name Freq PRN Reason Stop Dose Admin Acetaminophen 650 mg 11/08/24 21:14 Acetaminophen 325 Mg Tablet PO Q4H PRN Mild Pain (1-3) or Fever Aspirin 325 mg 11/09/24 09:00 11/11/24 08:51 Aspirin 325 Mg Tablet PO 325 mg DAILY FORTINO Administration Azithromycin 500 mg 11/11/24 21:00 Azithromycin 250 Mg Tablet PO 11/12/24 21:01 QHS FORTINO Cyclosporine 1 drop 11/09/24 09:00 11/11/24 08:51 Cyclosporine 0.4 Ml Ophth Solution EACH EYE 1 drop Q12HR FORTINO Administration Hydralazine HCl 100 mg 11/09/24 08:00 11/11/24 08:51 Hydralazine Hcl 50 Mg Tablet PO 100 mg BIDWM FORTINO Administration Ceftriaxone Sodium 1 gm/ 50 mls @ 100 mls/hr 11/09/24 20:00 11/10/24 21:31 Sodium Chloride IVPB Infused Q24H FORTINO Infusion Levothyroxine Sodium 75 mcg 11/09/24 06:30 11/11/24 05:43 Levothyroxine Sodium 75 Mcg Tablet PO 75 mcg DAILY@0630 FORTINO Administration Metoprolol Succinate 25 mg 11/09/24 09:00 11/11/24 08:49 Metoprolol Succinate Ext Rel 25 Mg Tabcr PO 25 mg DAILY FORTINO Administration Ondansetron HCl 4 mg 11/08/24 21:14 Ondansetron Inj 4 Mg/2 Ml Vial IV PUSH Q4H PRN Nausea Vitamin D 25 mcg 11/09/24 09:00 11/11/24 08:49 Cholecalciferol (Vitamin D3) 25 Mcg (1,000 Units) Tablet PO 25 mcg DAILY FORTINO Administration Radiology Results: ITS Impressions Chest X-Ray 11/08/24 17:42 IMPRESSION: No acute cardiopulmonary process. Head CT 11/08/24 17:57 IMPRESSION: No acute intracranial process. Cervical Spine CT 11/08/24 18:01 IMPRESSION: No acute fracture or traumatic malalignment in the cervical spine. Chest/Abdomen/Pelvis CT 11/08/24 19:48 IMPRESSION: Small focus of tree-in-bud opacities in the right upper lobe may represent a small focus of atypical infection or aspiration. Stable 6 cm lingular nodule. Moderate esophagitis/gastritis. Multiple hepatic hemangiomas. Hepatic steatosis. Indeterminate density left renal lesion, consider nonemergent CT or MRI without and with contrast for further characterization. Bladder wall thickening and edema as can be seen with cystitis. Labs Labs: Laboratory Results - last 24 hr 11/11/24 05:30 WBC 7.6 RBC 4.42 Hgb 12.9 Hct 40.4 MCV 91.4 MCH 29.2 MCHC 31.9 L RDW 15.9 H Plt Count 183 MPV 11.0 H Sodium 138 Potassium 4.1 Chloride 108 H Carbon Dioxide 28 Anion Gap 2 L BUN 15 Creatinine 1.12 H Estim Creat Clear Calc 30 Estimated GFR 46 L Glucose 86 Calcium 9.3 Magnesium 2.3 Total Bilirubin 0.7 AST 44 H ALT 38 H Alkaline Phosphatase 72 Total Protein 6.4 Albumin 3.6 Quality VTE Prophylaxis VTE prophylaxis: mechanical ordered (SCDs)
[2024-11-11 14:00] VITALS: BP 119/66; PULSE 62; RESP 16; TEMP 36.2; O2SAT 95
[2024-11-11 22:00] VITALS: BP 100/57; PULSE 74; RESP 16; TEMP 36.3; O2SAT 97
[2024-11-11] MEDS: AZITHROMYCIN 250 MG TABLET 500 MG PO (22:14)
[2024-11-11] MEDS: cefTRIAXone 1 GM in SODIUM CHLORIDE 0.9% IV 50 ML 100 ML IVPB (22:14)
[2024-11-12 06:00] VITALS: BP 115/65; PULSE 61; RESP 18; TEMP 36.8; O2SAT 98
[2024-11-12] MEDS: LEVOTHYROXINE SODIUM 75 MCG TABLET PO (06:22)
[2024-11-12 06:40] LABS: Hematocrit 41.3 % (37.0-47.0); Hemoglobin 13.0 g/dL (12.0-15.0); Mean Corpuscular HGB Conc 31.5 g/dl (32-36); Mean Corpuscular Hemoglobin 29.0 pg (26-34); Mean Corpuscular Volume 92.2 fl (80-100); Platelet Count Result 190 k/mm3 (150-375); Red Blood Count 4.48 M/mm3 (4.2-5.4); White Blood Count 7.8 K/mm3 (4.5-10.0)
[2024-11-12 07:17] LABS: Alanine Aminotransferase 32 U/L (6-35); Albumin Level 3.5 g/dL (3.5-5.1); Alkaline Phosphatase 66 U/L (38-126); Anion Gap 3 mmol/L (4-12); Aspartate Amino Transferase 40 U/L (14-36); Bilirubin,Total 0.7 mg/dL (0.2-1.3); Blood Urea Nitrogen 20 mg/dL (7-17); Calcium 9.0 mg/dL (8.4-10.2); Carbon Dioxide 25 mmol/L (22-30); Chloride 110 mmol/L (98-107); Estimated CRCL calculation 30 ml/min; Estimated Glomerular Filt Rate 47; Glucose 87 mg/dL (65-110); Magnesium 2.2 mg/dL (1.6-2.3); Potassium 3.9 mmol/L (3.4-5.0); Sodium 138 mmol/L (137-145); Total Protein 6.2 g/dL (6.3-8.2)
[2024-11-12 08:00] VITALS: O2SAT 98
[2024-11-12 08:32] VITALS: PULSE 70
[2024-11-12] MEDS: ASPIRIN 325 MG TABLET PO (08:32)
[2024-11-12] MEDS: CHOLECALCIFEROL (VITAMIN D3) 25 MCG (1,000 UNITS) TABLET PO (08:32)
[2024-11-12] MEDS: METOPROLOL SUCCINATE EXT REL 25 MG TABCR PO (08:32)
[2024-11-12] MEDS: cycloSPORINE 0.4 ML OPHTH SOLUTION 1 DROP EACH EYE (08:34)
--- NOTE | 2024-11-12 09:37 | PM.DS ---
DS: Admitting Diagnosis Discharge Date 11/12/24 Admitting Diagnosis Progressive weakness, occasional confusion DS: Discharge Diagnosis Discharge Diagnosis (1) Hypothyroidism: Qualifiers: Hypothyroidism type: acquired Qualified Code(s): E03.9 - Hypothyroidism, unspecified Code(s): E03.9 - Hypothyroidism, unspecified Status: Acute (2) Acute UTI: Code(s): N39.0 - Urinary tract infection, site not specified Status: Acute (3) Cognitive and behavioral changes: Code(s): R41.89 - Other symptoms and signs involving cognitive functions and awareness; R46.89 - Other symptoms and signs involving appearance and behavior Status: Acute (4) Elevated CPK: Code(s): R74.8 - Abnormal levels of other serum enzymes Status: Acute (5) RAMO (acute kidney injury): Code(s): N17.9 - Acute kidney failure, unspecified Status: Acute (6) Pneumonia of right upper lobe due to infectious organism: Code(s): J18.9 - Pneumonia, unspecified organism Status: Acute (7) Smoker: Code(s): F17.200 - Nicotine dependence, unspecified, uncomplicated Status: Acute (8) Weakness generalized: Code(s): R53.1 - Weakness Status: Acute Plan Patient is having difficulty with episodes of confusion which is likely multifactorial. Likely due to untreated hypothyroidism due to noncompliance with medication therapy and possible underlying UTI and complicated further by the patient's age and possible developing mild cognitive impairment. Patient has been placed on empiric antibiotic therapy to treat for possible UTI and urine cultures are pending. Patient TSH is markedly elevated and it appears she likely has not been on her medications for hypothyroidism since 2022. Patient received turned 25 mcg IV levothyroxine in the ER and a dose of Decadron. Patient will be transition back to oral levothyroxine in a.m.. The importance of compliance with medications was discussed with the patient. The patient above factors are playing a component in her generalized weakness. But patient would also benefit from evaluation by physical therapy to work on strengthening and for recommendations for possible discharge placement. Patient did have mildly elevated CK but this is likely due to decreased mobility and does not indicate overt rhabdomyolysis. Patient did received 1 L fluid bolus in the ER will continue with 2 L normal saline and will stop fluids and re-evaluate patient's fluid status. Patient has had good urine output from the pure wick catheter since arriving to the medical floor. Patient's creatinine is slightly elevated but similar to last month. It is unclear if this is acute kidney injury verses this being her baseline renal function. Will repeat electrolyte panel in a.m.. Patient is imaging demonstrated possible right upper lobe pneumonia. Patient is not having any respiratory symptoms besides her chronic smoker's cough. I am less concerned about pneumonia but will not hurt to have add azithromycin to antibiotic regimen. The patient is a smoker and continues to smoke. She has no interest in smoking cessation education. She does not want a nicotine patch. Given possible UTI will repeat CBC in a.m.. Patient has been admitted as observation status. patient is 84 y/o female who lives alone and brought to ER as patient was more confused, and family thought patient was not behaving herself was getting forgetful, In ER patient was found to have significantly elevated TSH of >100 and significantly low T3 and T4, In ER patient was given loading dose levothyroxine with Decadron, started on levothyroxine 75mcg daily, at onetime patient had history of hyperthyroid was seen by an turkish line attendant and treated apparently had partial thyroidectomy. patient also found to have UTI and being treated with ceftriaxone will follow up on urine culture and sensitivity, CT scan of chest is concerning for possible pneumonia and Zithromax was added, patient remains clinically, and has improved compared to when she arrived, will have PT/OT evaluate the patient and patient will benefit going to acute rehab. patient daughter is present who herself a physician, gave updates. Today patient is sitting in the chair eating her breakfast, stats feeling much better compared to when she arrived, upon arrival patient was fatigue and tired was not able to participate with PT, today she did walk with PT, will participate with PT. patient urine culture is growing gram negative bacilli isolated patient is being treated with ceftriaxone and blood culture are pending, will follow up, patient will benefit going to acute rehab before discharging home. there is slight improvement in patient T4 most likely due to supplemental levothyroxine she received upon arrival, today no family is present. DS: Summary Hospital Course Hospital Course: patient is 84 y/o female who lives alone and brought to ER as patient was more confused, and family thought patient was not behaving herself was getting forgetful, In ER patient was found to have significantly elevated TSH of >100 and significantly low T3 and T4, In ER patient was given loading dose levothyroxine with Decadron, started on levothyroxine 75mcg daily, at onetime patient had history of hyperthyroid was seen by an turkish line attendant and treated apparently had partial thyroidectomy. patient also found to have UTI and being treated with ceftriaxone will follow up on urine culture and sensitivity, CT scan of chest is concerning for possible pneumonia and Zithromax was added, patient remains clinically, and has improved compared to when she arrived, will have PT/OT evaluate the patient and patient will benefit going to acute rehab. patient daughter is present who herself a physician, gave updates. Today patient is sitting in the chair eating her breakfast, stats feeling much better compared to when she arrived, upon arrival patient was fatigue and tired was not able to participate with PT, today she did walk with PT, will participate with PT. patient urine culture is growing gram negative bacilli isolated patient is being treated with ceftriaxone and blood culture are pending, will follow up, patient will benefit going to acute rehab before discharging home. there is slight improvement in patient T4 most likely due to supplemental levothyroxine she received upon arrival. patient is clinically improving, will discharge today to the ID for rehab. Time Spent with Patient Time attestation: Total time spent providing and/or coordinating discharge services: Exam Narrative: Elderly frail Patient is comfortable, NAD HEENT: eyes are clear and none icteric LUNGS:CTA HEART: RR S1S2 ABD: BS+, Soft and nontender Lower extremities: no edema SKIN: nonjaundiced Neuro: grossly intact. DS: Data Data Completed and Pending Labs on day of discharge: Labs from last 24 hours 11/12/24 05:53 WBC 7.8 RBC 4.48 Hgb 13.0 Hct 41.3 MCV 92.2 MCH 29.0 MCHC 31.5 L RDW 16.0 H Plt Count 190 MPV 10.7 H Sodium 138 Potassium 3.9 Chloride 110 H Carbon Dioxide 25 Anion Gap 3 L BUN 20 H Creatinine 1.10 H Estim Creat Clear Calc 30 Estimated GFR 47 L Glucose 87 Calcium 9.0 Magnesium 2.2 Total Bilirubin 0.7 AST 40 H ALT 32 Alkaline Phosphatase 66 Total Protein 6.2 L Albumin 3.5 Preliminary micro results at discharge 11/08/24 21:35 Blood Culture - Preliminary Blood 11/08/24 21:55 Blood Culture - Preliminary Blood 11/08/24 18:15 - Preliminary Unspecified Urine Gram negative bacilli isolated Discharge Plan Discharge Attending physician on discharge: Tiffanie Ortega Consulting providers: Peewee Webb; Phuc Ceja Discharging Clinician: Rosangela Flood Patient Disposition: SNF Activity: as tolerated Diet: heart healthy Discharge Instructions: Please check her TSH levels on December 14, as last TSH was >100. patient to follow up with her primary care provider as soon as possible. Patient Instructions: Antibiotic Form Patient Language: Nepalese Stand Alone Forms: General Discharge Information Follow-up/Referrals: Clayton Corley APRN [Primary Care Provider] - Discharge Medications: New azithromycin [Zithromax] 250 mg Tablet 500 mg PO QHS Qty: 3 0RF cefdinir 300 mg capsule 300 mg PO Q12H Qty: 10 0RF Continued aspirin 325 mg tablet 325 mg PO DAILY cholecalciferol (vitamin D3) 25 mcg (1,000 unit) tablet 25 mcg PO DAILY atorvastatin 80 mg tablet 80 mg PO HS Qty: 90 1RF ezetimibe 10 mg tablet 10 mg PO HS Qty: 90 1RF hydralazine 50 mg tablet 100 mg PO BID Qty: 360 3RF levothyroxine 75 mcg tablet 75 mcg PO DAILY Qty: 90 1RF metoprolol succinate 25 mg tablet extended release 24 hr See Rx Instructions .ROUTE .COMPLEX Qty: 90 1RF Dose Instruction: TAKE 1 TABLET BY MOUTH DAILY Rx Instructions: TAKE 1 TABLET BY MOUTH DAILY cyclosporine [Restasis] 0.05 % dropperette 1 drp EACH EYE Q12H lisinopril 40 mg tablet 40 mg PO DAILY Qty: 90 1RF Date of admission: 11/09/24 14:11 Primary Care Provider: Clayton Corley Admitting Provider: Tiffanie Ortega Attending physician on admission: Rosangela Flood Condition: Stable
== END 2024-11-12 12:45 | DRG 643 ==
LOC: ANHED 21:13 → ANH3MEDSUR 21:49
PROVIDERS: Admitting Provider Internal Medicine; Emergency Provider Student in an Organized Health Care Education/Training Program; PCP Nurse Practitioner; Visit Provider Family Medicine
DX: E03.9 Hypothyroidism, unspecified (principal); J18.9 Pneumonia, unspecified organism; N39.0 Urinary tract infection, site not specified; N17.9 Acute kidney failure, unspecified; Z91.148 Patient's other noncompliance with medication regimen for other reason; G31.84 Mild cognitive impairment of uncertain or unknown etiology; R46.89 Other symptoms and signs involving appearance and behavior; R74.8 Abnormal levels of other serum enzymes; I25.10 Atherosclerotic heart disease of native coronary artery without angina pectoris; I10 Essential (primary) hypertension; I35.0 Nonrheumatic aortic (valve) stenosis; E78.5 Hyperlipidemia, unspecified; F17.210 Nicotine dependence, cigarettes, uncomplicated; Z90.49 Acquired absence of other specified parts of digestive tract; Z95.5 Presence of coronary angioplasty implant and graft
CPT/HCPCS: 36415; 70450; 71046; 71260; 72125; 74177; 80053; 80143; 80179; 80307; 81001; 82140; 82550; 83735; 84439; 84443; 84481; 84484; 85025; 85027; 87040; 87086; 87637; 93005; 96361; 96365; 96375; 97110; 97116; 97161; 97166; 97530; 97535; 99285; A9270; G0378; J0456; J0650; J0696; J1100; J7030; J7050; Q9967

== ENCOUNTER 2024-12-14 12:52 | Outpatient (NON) | payer MEDICARE, OTHER, SELFPAY ==
--- OUTSIDE RECORDS SUMMARY | 2009-07-06 03:45 | XMS_ITS | Continuity of Care Document ---
Author Organization [facility] Address [address] [place] [address] Phone Care Team Providers Care Energy Trader Name Role Phone Jese Cruz Unavailable Unavailable Procedures Procedure Date Eye Exam & Treatment Refraction Eye Exam, New Patient No Script Refraction Vision Svcs Frames Purchases Lens-Index 1.54-1.79 Glass Special Base Curve Advance Directives Directive Yes / No Effective Date File Name No Information Encounters Encounter Description Practice Location Reason(s) For Visit Diagnoses Date Provider Providers Copied on Encounter [facility], [address] [place] [address] [address], [place], [place], [id number], tel:[phone] [facility] No Information 8-201 0 Anthony Sawant. [address] , [address], [place], [place], [facility], . tel:[phone] [facility], [address] [place] [address] [address], [place], [place], [address], [place] tel:[phone] [facility] No Information 1-200 9 Anthony Sawant. [address] , [address], [place], [place], [facility], . tel:[phone] [facility], [address] [place] [address] [address], [place], [place], [address], tel:[phone] [facility] No Information 1 9 [facility] . [address] [facility], [address], [place], [place], [address], [place]. tel:[phone] Referring Provider: Jese Basurto, [address], [place], [address]. tel:[phone] hawthorne Provider: Awilda Vences, [address] [place] [address] [address] [place], [place], [address]. tel:[phone] Family History Family Member Type Diagnosis Age At Onset No Information Payers Payer name Insurance type Covered libertarian ID Authoriza tion(s) Medicare [place] MB [id number] For Life Mdcr Supp CI [id number] Social History Type Description Quantity Date Captured [...]
--- OUTSIDE RECORDS SUMMARY | 2024-12-14 12:58 | XMS_ITS | Clinical Summary ---
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
--- OUTSIDE RECORDS SUMMARY | 2024-12-14 12:58 | XMS_ITS | Clinical Summary ---
Author Organization [facility] Address [address] [place] [address] Care Team Providers Care Regulatory Submissions Associate Name Role Phone Suhail Crump MD Primary Care Provider [phone] Norman Garcia MD Unavailable Source Comments [facility] Affiliates and Associated Physician Practices is amultiple site organization consisting of ambulatory clinics and hospital sitesin [place], [place], [place] and [place]. This disclosure is being madepursuant to the Care Everywhere program and may not contain all information available regarding this patient. 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
[2024-12-14 15:14] LABS: Thyroid Stimulating Hormone 6.340 uIU/mL (0.465-4.680)
== END 2024-12-14 12:53 | disposition home or self-care (01) ==
LOC: HOME HLTH 12:55
PROVIDERS: PCP Nurse Practitioner; Visit Provider Nurse Practitioner
DX: J18.9 Pneumonia, unspecified organism (principal); E03.9 Hypothyroidism, unspecified; N39.0 Urinary tract infection, site not specified; N17.9 Acute kidney failure, unspecified
CPT/HCPCS: 84443

== ENCOUNTER 2025-01-12 01:11 | Day surgery (SDC) | payer MEDICARE, OTHER, SELFPAY ==
--- OUTSIDE RECORDS SUMMARY | 2009-07-06 03:45 | XMS_ITS | Continuity of Care Document ---
Author Organization [facility] [place] Address [address] [place] [address] Phone Care Team Providers Care Hat And Cap Drying Room Attendant Name Role Phone Jese Cruz Unavailable Unavailable Procedures Procedure Date Eye Exam & Treatment Refraction Eye Exam, New Patient No Script Refraction Vision Svcs Frames Purchases Lens-Index 1.54-1.79 Glass Special Base Curve Advance Directives Directive Yes / No Effective Date File Name No Information Encounters Encounter Description Practice Location Reason(s) For Visit Diagnoses Date Provider Providers Copied on Encounter [facility], [address] [place] [address] [address], [place], [place], [id number], tel:[phone] [facility] No Information 8-201 0 Anthony Sawant. [address] , [address], [place], [place], [facility], . tel:[phone] [facility], [address] [place] [address] [address], [place], [place], [id number], [place] tel:[phone] [facility] No Information 1-200 9 Anthony Sawant. [address] , [address], [place], [place], [facility], . tel:[phone] [facility], [address], [place], [place], [id number], tel:[phone] [facility] No Information 1 9 [facility] . [address], [address], [place], [place], [address], [place]. tel:[phone] Referring Provider: Jese Basurto, [address], [place], [address]. tel:[phone] hawthorne Provider: Awilda Vences, [address] [place] [address] [address] [place], [place], [address]. tel:[phone] Family History Family Member Type Diagnosis Age At Onset No Information Payers Payer name Insurance type Covered democrat ID Authoriza tion(s) [place] [id number] For Life Mdcr Supp CI [id number] Social History Type Description Quantity Date Captured Comments Sex Female Smoking Status No Information Chief Complaint And Reason For Visit No Information Reason For Referral Reason For Referral No Information History Of Present Illness Encounter Date Complaint History Of Prese nt Illness No Information Functional Status Date Functional Assessmen t No Information Instructions Date Instruction Additional Infor mation No Information Assessments Type Assessment Date No Information Patient Care Teams Name Effective Dates (start - stop) Status Members No Information
[2025-01-06 08:47] VITALS: BMI 22.4
--- NOTE | 2025-01-06 09:24 | PC.NURSE ---
[facility] has started construction of its new state of the art ER which will open Spring 2026. With this, we anticipate parking may be a challenge for some our surgical patients and families. Parking spaces are limited but are available for all Surgical, obstetrics, and ER patients sharing this lot. If you arrive and find you are having a hard time finding a parking space, please note that we understand the challenges, please drive around the hospital and park near Hospital Entrance 1. When you enter this entrance, you can ask a volunteer to direct or take you back to the surgical waiting area to check in. We appreciate everyone?s understanding of these expected challenges while we build for your future. Report to the Outpatient Waiting Room, entrance under the green pavilion located off [address], at time ___1:00PM____ on date ____01/12/25___. Planned Procedure Time: __2:00PM .? Time changes happen often and if your time is changed the preop area will call you the afternoon before. - You and your visitor will be asked to self-screen and do not enter if you have any COVID symptoms. Please call surgeon if you need to reschedule. - A mask is optional within the hospital at this time. MAY EAT LIGHT BREAKFAST/LUNCH PRIOR TO SURGERY. Take only the following medications with a SIP of water on the morning of surgery: MORNING MEDICATION DO NOT STOP ANY OF YOUR OTHER PRESCRIPTION MEDICATIONS PRIOR TO SURGERY EXCEPT THE FOLLOWING Medications to discontinue per physician ____ASPIRIN PER DR LEA Date to take last dose Please no make-up, nail micronesian, hairspray, perfume, deodorant, or body powder the day of surgery.? No jewelry (including any body piercings) or valuables the day of surgery, leave them at home.? Please take a shower or bath the night before, or the morning of, surgery with an antibacterial soap.? Wear comfortable, loose fitting clothing.? Children are encouraged to wear pajamas. - Jewelry must be removed prior to entering the operating room.? Rings and piercings that are not removed may be cut off. - The hospital will not accept responsibility for valuables.? - Please leave all valuables, including medications, at home the day of surgery. If you are going home after surgery, a licensed transporter driver must drive you home.? - NO public transportation without another adult if you receive anesthesia. - We recommend that an adult stay with you for 24 hours following discharge. - We also recommend that you do not drive, make important decision, drink alcoholic beverages, or take any drugs that were not prescribed by your health care provider for at least 24 hours after your discharge time. For Pediatric surgeries, we recommend two adults accompany the child home. Follow any additional instructions given to you from your surgeon. Telephone instructions given to PATIENT and asked if any additional questions and then verbalized understanding. Patient advised to call surgeon office or pre surgery nurse liaison [phone] if any additional questions.
--- NOTE | 2025-01-11 10:45 | PM.SD2 ---
Same Day Admit/Disch: HPI History of Present Illness Chief complaint: skin cyst left shoulder Narrative: Kandi Lewis is a 84 year old female who had an infected skin cyst on her left shoulder that formed an abscess and had to be drained. The wound went on to heal fully but cyst remnants remain. She is taken to the operating room at this time to excise the remaining cyst to avoid further infectious complications. [facility] Past Medical History Medical History Congenital strabismus Aortic stenosis Hepatic steatosis Esophagitis with gastritis BMI 20.0-20.9, adult Thyroid disorder Vitamin D deficiency Hypothyroidism Dyslipidemia Hypertension Coronary artery disease Surgical History Surgical History History of appendectomy History of arthroscopic knee surgery History of heart artery stent X1 Family History Family History Sibling Patient's sister is in good health Mother Family history of malignant neoplasm of breast in first degree relative Breast cancer Hypertension Cerebrovascular accident Father Family history of coronary artery disease Heart problem Other Colon cancer Social History Social History Social History: Surrogate medical decision maker: Emilia Pedraza, daughter. Code status: DNR per discussion with her with family at bedside (she states she has this in writing in a living will) Smoking packs per day: 0.5 Smoking cigarettes per day: 10.0 Years smoked: 66 Smoking pack-years: 33.00 Smoking status: Current every day smoker Tobacco type: cigarettes Second hand tobacco smoke exposure: No Alcohol intake: never Substance use: never Substance use type: does not use Do You Feel Safe in your Home?: Yes Lack of Transportation: No Lack of Food: Never True Current Housing: I Have Housing Concerned About Future Housing: No Difficulty Paying Gas/Electric Bills: No Difficulty Paying for Meds: No Currently Unemployed: No Education: Associate Degree Difficulty w/ Childcare or Family Care: No Living arrangements: alone Additional living arrangements comments: as of January 2022. Lives alone in [place] with her dog. 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 Gender identity (if verbalized by the patient): Female Spiritual care concerns: No Same Day Admit/Disch: Med Pre-admit Medications Home Medications ?Medication ?Instructions ?Recorded ?Confirmed ?Type aspirin 325 mg tablet 325 mg PO DAILY 12/02/19 01/12/25 History cholecalciferol (vitamin D3) 25 25 mcg PO DAILY 12/02/19 01/12/25 History mcg (1,000 unit) tablet atorvastatin 80 mg tablet 80 mg PO HS #90 tabs 08/19/24 01/12/25 Rx hydralazine 50 mg tablet 100 mg (2 x 50 mg) PO BID #360 tabs 08/19/24 01/12/25 Rx levothyroxine 75 mcg tablet 75 mcg PO DAILY #90 tabs 08/19/24 01/12/25 Rx lisinopril 40 mg tablet 40 mg PO DAILY #90 tabs 08/31/24 01/12/25 Rx ezetimibe 10 mg tablet 10 mg PO HS #90 tabs 12/03/24 01/12/25 Rx Review of Systems Review of Systems All systems reviewed & are unremarkable except as noted in HPI and below (HPI) Exam Const: General: comfortable, no acute distress, alert and awake HENMT: Head: normocephalic and atraumatic Mouth: Yes Normal oral and palatal mucosa present Eyes: Conjunctivae: conjunctivae normal Pupils: Equal, round and reactive pupils present EOM: EOMs intact bilaterally Neck: Neck: normal visual inspection, no lymphadenopathy and nontender Resp: Effort & Inspection: normal respiratory effort Auscultation: clear to auscultation bilaterally Cardio: Rate: regular rate Rhythm: regular rhythm Heart sounds: no gallops, no murmurs and no rubs GI: Inspection: non-distended GI Palp: Yes Soft to palpation, No Tenderness to palpation present (GI), No Hepatomegaly present and No Splenomegaly present Skin: Lesions: no lesions Rashes: no rashes Neuro: General: no focal motor deficits and CN's II-XI intact bilaterally Cranial nerves: Yes Equal, round and reactive pupils present, Yes Bilaterally intact EOM present, Yes facial symmetry and Yes Midline tongue present Speech: normal speech Motor exam (neuro): 5/5 motor strength present throughout and Motor abnormalities not present Extrem: General: no clubbing, cyanosis or edema and edema Left upper extremity: shoulder/upper arm (1.5 by 0.5 cm nodule left shoulder, punctum on lateral aspect. Nontender) Psych: Affect: normal affect Thought process: Normal thought process present Insight: Good insight present (Psych) DS: Summary Time Spent with Patient Time attestation: Total time spent providing and/or coordinating discharge services: DS: Admitting Diagnosis Discharge Date 01/12/25 Admitting Diagnosis Skin cyst left shoulder-plan to excise under local anesthesia as an outpatient. Procedure, risks, alternatives, and usual recovery have been described. She wishes to go ahead. DS: Discharge Diagnosis Discharge Diagnosis (1) Epidermoid cyst of skin: Code(s): L72.0 - Epidermal cyst Status: Chronic Assessment and Plan: Removed as an outpatient per Dr. Jones 01/12/2025 Discharge Plan Discharge Patient Disposition: Home Discharge Instructions: May remove dressing tomorrow and shower. Okay to wash over incision with soap and water. Place a fresh dressing over the incision after showering. Keep a dressing over wound until see Dr. Jones in the office. Activity as tolerated. Call Dr. Barajas office for persistent wound drainage or bleeding, severe swelling or bruising, severe pain, temp over 100.5, or other significant change in condition. Okay to take aspirin, ibuprofen or Tylenol as needed for pain See Dr. Jones in the office on January 20. Call for an appointment. Patient Language: Armenian Stand Alone Forms: General Discharge Instructions Follow-up/Referrals: Hill Jones MD [Physician, General Surgery] - 01/20/25 Referral Note: Call Dr. Barajas office to make appointment Discharge Medications: Continued ezetimibe 10 mg tablet 10 mg PO HS Qty: 90 3RF aspirin 325 mg tablet 325 mg PO DAILY cholecalciferol (vitamin D3) 25 mcg (1,000 unit) tablet 25 mcg PO DAILY atorvastatin 80 mg tablet 80 mg PO HS Qty: 90 1RF hydralazine 50 mg tablet 100 mg PO BID Qty: 360 3RF levothyroxine 75 mcg tablet 75 mcg PO DAILY Qty: 90 1RF Patient Comments: QAM lisinopril 40 mg tablet 40 mg PO DAILY Qty: 90 1RF
[2025-01-12] VITALS (11 sets, daily range): BP systolic 120–157; BP diastolic 56–68; PULSE 60–72; RESP 16–18; TEMP 36.3; O2SAT 98–100
--- OUTSIDE RECORDS SUMMARY | 2025-01-12 01:18 | XMS_ITS | Clinical Summary ---
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
--- NOTE | 2025-01-12 10:46 | WPDHPUPDATE1 ---
History and Physical Update Update Date/Time: 01/12/25 10:46 History and Physical has been reviewed, including an updated exam of the patient. There are NO changes in the patient's condition. Risks, benefits, and alternatives have been discussed and questions answered. Patient agrees to proceed with procedure.
[2025-01-12] MEDS: BUPIVACAINE/EPINEPHRINE 0.5% 50 ML VIAL 20 ML INFILTRATE (14:47)
--- NOTE | 2025-01-12 15:08 | S_PTH ---
PATIENT: Kandi Lewis LOC: [facility] U#:[id number] AGE/SX: 84/F ROOM: RE01/12/[address]: Hill Jones MD : 1940 BED: DIS: 01/12/2025 SPEC #: [id number] RECD: 01/13/25 06:51 STATUS: JESSE REQ #: [id number] NHUNG: 01/12/25 15:[address]: Hill Jones DEPT: [facility] Surgical RECD BY: Patricia Diaz ENTERED: 01/13/25 06:51 SP TYPE: Surgical OTHR DR: Clayton Corley, INOCENCIO Tissues: A - Cyst Procedures: Hematoxylin and Eosin Stain Gross and Microscopic Level 4
--- NOTE | 2025-01-12 15:33 | W.PM.PROC2 ---
Procedure Note - Detailed Date of Procedure 01/12/25 Pre-op Diagnosis skin cyst left shoulder Post-op Diagnosis Same Procedure Performed Excision 3 cm skin cyst left shoulder with 5 cm layered closure Surgeon Hill Jones MD Anesthesia Local Indications Patient had an infected skin cyst on her left shoulder. This was drained in urgent care. It has gone on to heal but a significant cyst remnant remains. She is taken to surgery at this time to remove the cyst. Findings Cyst measured 3 cm in greatest dimension, the resultant wound was 5 cm and was closed in layers. Description of Procedure Patient was checked in the preoperative area. The area of the cyst and the anticipated elliptical incision were marked on the skin. Patient was then taken to surgery and placed in right lateral decubitus position. The area on the left shoulder was then prepped and draped. Local anesthetic of 0.5% Marcaine with epinephrine was infiltrated thoroughly in the area of the anticipated incision and in the subcutaneous tissues. Incision was made and dissection was carried through the skin. At the area of the cyst, there was an extension of the cyst cephalad, at 90? to the orientation of the ellipse. I dissected this cyst tissue from the skin and subcutaneous but leaving a short tract after the cyst was removed. The cyst was measured and was 3 cm in greatest dimension. Cautery was used for hemostasis. The wound was measured and was 5 cm in length. The wound was closed in layers with a deep layer of interrupted 4-0 Vicryl. Subcuticular interrupted 4-0 Vicryl sutures were then placed. Finally 5 0 nylon vertical mattress sutures were placed to close the skin. The wound was dressed with Xeroform gauze, fluffs, and Medipore tape. Patient was awake through the procedure and tolerated this well. Sponge needle counts were correct x2. Estimated Blood Loss -5 Pathology Yes (Skin cyst left shoulder) Complications None Condition Stable Disposition Same day [facility] Billing Surgery - Charge Forward: Surgery Billing (Excision 3 cm skin cyst left shoulder with 5 cm layered closure)
== END 2025-01-12 15:53 | disposition home or self-care (01) ==
PROVIDERS: PCP Nurse Practitioner; Visit Provider Surgery
PROC: (CPT 11403; principal; 2025-01-12 13:30)
DX: L72.0 Epidermal cyst (principal)
CPT/HCPCS: 11403; 12032; 88305